=== PATIENT | female | born 1990 | race American Indian/Alaskan Native ===

== ENCOUNTER 2017-04-04 10:19 | Emergency (ER) | payer MEDICAID ==
[2017-04-04 11:08] LABS: Anion Gap 19 mmol/L; BUN/Creatinine Ratio 14; Blood Urea Nitrogen 7 mg/dL (7-17); Calcium 9.1 mg/dL (8.4-10.2); Carbon Dioxide 23 mmol/L (22-30); Glucose 415 mg/dL (65-100); Potassium 3.6 mmol/L (3.6-5.0); Sodium 133 mmol/L (137-145)
[2017-04-04] MEDS ORDERED: CLEOCIN 900 MG/50 mL 900 MG/50 ML BAG IV ONE (11:20)
[2017-04-04] MEDS ORDERED: NACL 0.9% 1000 ML 1,000 ML IV ONE (11:20)
[2017-04-04] MEDS ORDERED: XYLOCAINE 1% 20 mL INFILTRATI ONE (11:22)
[2017-04-04 11:24] LABS: Basophils % (Auto) 0.3 % (0.0-1.8); Eosinophils % (Auto) 1.4 % (0.0-4.3); Hematocrit 30.3 % (30.3-42.9); Hemoglobin 9.2 gm/dl (10.1-14.3); Mean Corpuscular HGB Conc 30 % (30-34); Mean Corpuscular Hemoglobin 21 pg (28-32); Mean Corpuscular Volume 70 fl (79-97); Platelet Count 527 K/mm3 (140-440); Red Blood Count 4.32 M/mm3 (3.65-5.03); Red Cell Distribution Width 17.9 % (13.2-15.2); White Blood Count 14.1 K/mm3 (4.5-11.0)
[2017-04-04] MEDS ORDERED: NACL 0.9% IR ONE (11:24)
--- NOTE | 2017-04-04 11:39 | Emergency Department Report ---
ED General Adult HPI - General Chief complaint: Skin/Abscess/Foreign Body Stated complaint: LEFT ARM HAS RASH SPREADING Time Seen by Provider: 04/04/17 11:15 Source: patient Mode of arrival: Ambulatory Limitations: No Limitations - History of Present Illness Initial comments: pt is a 26 y/om aaf with hx DM I insulin controlled who presents for left axillary abscess x 5 days symptoms include pain and swelling no drainage no fever no chills no /n/v no dizziness no lightheadedness pt endorses adherence with all home medications currently taking NPH 19 units qhs, and regular 10 units am, this is a recurrent problem for this patient, 3rd time year, last treated with keflex po, pt has primary care doctor at [facility]. Onset/Timin -: Gradual, days(s) Location: upper extremity (left axillary abscess ) Radiation: non-radiation Severity scale (0 -10): 5 Quality: sharp Improves with: none Worsens with: movement, other (palpation ) Associated Symptoms: denies: confusion, chest pain, cough, diaphoresis, fever/ chills, headaches, loss of appetite, malaise, nausea/vomiting, shortness of breath, syncope, weakness Treatments Prior to Arrival: none - Related Data Previous Rx's Medication Instructions Recorded Last Taken Type Insulin NPH/Regular [NovoLIN 70/30] 15 unit SUB-Q BIDDIAB units 01/10/15 Rx Amoxicillin/K Clav Tab [Augmentin 1 tab PO Q12HR #10 tab 05/30/16 Unknown Rx 875 mg] Ondansetron [Zofran TAB] 4 mg PO Q8HR PRN #30 tablet 05/30/16 Unknown Rx Clindamycin [Clindamycin CAP] 300 mg PO Q6H #40 capsule 04/04/17 Unknown Rx traMADol [Ultram] 50 mg PO Q8HR PRN #20 tablet 04/04/17 Unknown Rx Allergies Allergy/AdvReac Type Severity Reaction Status Date / Time No Known Allergies Allergy Verified 05/28/16 11:56 ED Review of Systems ROS: Stated complaint: LEFT ARM HAS RASH SPREADING Other details as noted in HPI Constitutional: denies: chills, fever Eyes: denies: eye pain, eye discharge, vision change ENT: denies: ear pain, throat pain Respiratory: denies: cough, shortness of breath, wheezing Cardiovascular: denies: chest pain, palpitations Endocrine: no symptoms reported Gastrointestinal: denies: abdominal pain, nausea, diarrhea Genitourinary: denies: urgency, dysuria, discharge Musculoskeletal: denies: back pain, joint swelling, arthralgia Skin: other (left axillary abscess ) Neurological: denies: headache, weakness, paresthesias Psychiatric: denies: anxiety, depression Hematological/Lymphatic: denies: easy bleeding, easy bruising ED Past Medical Hx - Past Medical History Previous Medical History?: Yes Hx Hypertension: Yes (during ) Hx Congestive Heart Failure: No Hx Diabetes: Yes Hx Deep Vein Thrombosis: No Hx Renal Disease: No Hx Sickle Cell Disease: No Hx Seizures: No Hx Psychiatric Treatment: No Hx Asthma: No Hx COPD: No Hx HIV: No - Surgical History Past Surgical History?: Yes Additional Surgical History: x 2 - Social History Smoking Status: Never Smoker Substance Use Type: Prescribed - Medications Home Medications: Home Medications Medication Instructions Recorded Confirmed Last Taken Type Insulin NPH/Regular [NovoLIN 70/30] 15 unit SUB-Q BIDDIAB units 01/10/1508/07/15 Rx Amoxicillin/K Clav Tab [Augmentin 1 tab PO Q12HR #10 tab 05/30/16 Unknown Rx 875 mg] Ondansetron [Zofran TAB] 4 mg PO Q8HR PRN #30 tablet 05/30/16 Unknown Rx Clindamycin [Clindamycin CAP] 300 mg PO Q6H #40 capsule 04/04/17 Unknown Rx traMADol [Ultram] 50 mg PO Q8HR PRN #20 tablet 04/04/17 Unknown Rx ED Physical Exam - General Limitations: No Limitations General appearance: alert, in no apparent distress - Head Head exam: Present: atraumatic, normocephalic - Eye Eye exam: Present: normal appearance - ENT ENT exam: Present: mucous membranes moist - Neck Neck exam: Present: normal inspection - Respiratory Respiratory exam: Present: normal lung sounds bilaterally. Absent: respiratory distress - Cardiovascular Cardiovascular Exam: Present: regular rate, normal rhythm. Absent: systolic murmur, diastolic murmur, rubs, gallop - GI/Abdominal GI/Abdominal exam: Present: soft, normal bowel sounds - Rectal Rectal exam: Present: deferred - Extremities Exam Extremities exam: Present: full ROM, tenderness (left axillary abscess ), normal capillary refill. Absent: pedal edema, joint swelling, calf tenderness - Expanded Upper Extremity Exam Left Upper Arm exam: Present: full ROM, tenderness (left axillary abscess ), erythema Neuro motor exam: Present: wrist extension intact, thumb opposition intact, thumb IP flexion intact, thumb adduction intact, fingers 2-5 abduction intact Neurosensory exam: Present: 2-point discrimination, radial nerve intact, ulnar nerve intact, median nerve intact Vascular: Present: normal capillary refill, radial pulse, brachial pulse, ulnar pulse. Absent: vascular compromise, Pallo, pulse deficit radial art, pulse deficit ulnar art, pulse deficit brachial art - Back Exam Back exam: Present: normal inspection - Neurological Exam Neurological exam: Present: alert, oriented X3 - Psychiatric Psychiatric exam: Present: normal affect, normal mood - Skin Skin exam: Present: warm, dry, other (left axillary abscess ) ED Course Vital Signs 04/04/17 10:24 Temperature 98.3 F Pulse Rate 112 H Blood Pressure 135/94 O2 Sat by Pulse 99 Oximetry - I & D Left Arm Type of Procedure: Simple Site: left axillary abcess 1x3 cm Blade Size: 11 I & D Procedure: betadine prep, sterile drapes applied, sterile dressing applied , gauze wick placed Progress: left axillary abscess, 1x3 cm erythema pain , no drainage fluctuant, abscess cleaned with betadine solution anesthesia with 1% lidocaine injection, incision with 11 blade scaple 1cm, purulent drainage moderate amount, wound irrigated with 30 cc sterile saline, packed with iodoform gaze, and sterile dressing applied all bleeding controled pt given wound care instructions pt verbalized understanding of same pt tolerated procedure with minimal distress. ED Medical Decision Making - Lab Data Result diagrams: 04/04/17 10:33 04/04/17 10:33 - Medical Decision Making pt is a 26 y/om aaf with hx DM I insulin controlled who presents for left axillary abscess x 5 days symptoms include pain and swelling no drainage no fever no chills no /n/v no dizziness no lightheadedness pt endorses adherence with all home medications currently taking NPH 19 units HS, and regular 10 units in am, this is a recurrent problem for this patient, 3rd time year, last treated with keflex po, exam today, pt is a/o x 3 does not appear toxic well hydrated well nourished, left axillary abscess 1x3 cm fluctuant pt for I&d of same, see procedure note, there is no red streaking no lymph , no fever, v/s hr : 115 there is no dizziness no lightheadedness no n/v , no generalized malaise noted, labs noted for gap: 19, na:133, glucose: 415, ketones: negative, wbc: 14.5, ua: no nitrates no leuk, Hcg: neg pt given NS 1 liter bolus, clindamycin 900 mg ivpb, and regular insulin 10 units iv, repeat accucheck is 225 mg/dl has primary care doctor at [facility], pt given strict instructions to return to emergency if symptoms worsen, take antibiotic and insulin as prescribed, pt verbalized agreement and understanding with discharge plan. pt will follow up with [facility] in 2 days for wound check and follow up evaluation. Critical care attestation.: If time is entered above; I have spent that time in minutes in the direct care of this critically ill patient, excluding procedure time. ED Disposition Clinical Impression: Abscess of axilla, left, Hyperglycemia Disposition: DC-01 TO HOME OR SELFCARE Is pt being admited?: No Does the pt Need Aspirin: No Condition: Good Instructions: Abscess (ED), Diabetic Hyperglycemia (ED) Prescriptions: Clindamycin [Clindamycin CAP] 300 mg PO Q6H #40 capsule traMADol [Ultram] 50 mg PO Q8HR PRN #20 tablet PRN Reason: Pain Referrals: PRIMARY CARE, [Primary Care Provider] - 3-5 Days Forms: Work/School Release Form(ED) Time of Disposition: 13:08
[2017-04-04] MEDS ORDERED: ULTRAM PO ONE (12:46)
[2017-04-04 13:03] LABS: Bilirubin,Urine NEG (Negative); Blood,Urine NEG (Negative); Ketones,Urine NEG (Negative); Leukocyte Esterase,Urine NEG (Negative); Nitrite,Urine NEG (Negative); Protein,Urine <15 mg/dL mg/dL (Negative); Urobilinogen,Urine < 2.0 mg/dL (<2.0)
[2017-04-04 13:49] VITALS: BP 155/106
== END 2017-04-04 14:01 | disposition home or self-care (01) ==
LOC: ED 10:19
DX: L02.412 Cutaneous abscess of left axilla (principal); I10 Essential (primary) hypertension; E10.65 Type 1 diabetes mellitus with hyperglycemia
CPT/HCPCS: 36415; 80048; 81001; 81025; 82010; 82962; 85025; 96365; 96375; J1815

== ENCOUNTER 2017-04-10 10:12 | Emergency (ER) | payer MEDICAID ==
[2017-04-10 10:24] VITALS: BP 136/93
== END 2017-04-10 23:46 | disposition left against medical advice (07) ==
LOC: ED 10:12
DX: Z53.21 Procedure and treatment not carried out due to patient leaving prior to being seen by health care provider (principal)

== ENCOUNTER 2017-08-11 13:56 | Emergency (ER) | payer MEDICAID ==
[2017-08-11 14:51] LABS: Basophils % (Auto) 0.6 % (0.0-1.8); Eosinophils # (Auto) 0.2 K/mm3 (0.0-0.4); Eosinophils % (Auto) 2.2 % (0.0-4.3); Hematocrit 36.5 % (30.3-42.9); Hemoglobin 11.2 gm/dl (10.1-14.3); Lymphocytes # (Auto) 1.9 K/mm3 (1.2-5.4); Lymphocytes % (Auto) 27.6 % (13.4-35.0); Mean Corpuscular HGB Conc 31 % (30-34); Mean Corpuscular Volume 78 fl (79-97); Monocytes # (Auto) 0.3 K/mm3 (0.0-0.8); Monocytes % (Auto) 4.4 % (0.0-7.3); Platelet Count 485 K/mm3 (140-440); Red Blood Count 4.68 M/mm3 (3.65-5.03); Red Cell Distribution Width 18.8 % (13.2-15.2)
[2017-08-11 14:52] LABS: Mean Corpuscular Hemoglobin 24 pg (28-32)
[2017-08-11 14:59] LABS: Alanine Aminotransferase 13 units/L (7-56); BUN/Creatinine Ratio 14; Blood Urea Nitrogen 7 mg/dL (7-17); Calcium 9.3 mg/dL (8.4-10.2); Hemolysis Index 0
[2017-08-11] MEDS ORDERED: NACL 0.9% 1000 ML 2,000 ML ONE (15:45)
[2017-08-11] MEDS ORDERED: NACL 0.9% 1000 ML 2,000 ML IV ONE (15:52)
[2017-08-11 15:57] LABS: Bilirubin,Urine NEG (Negative); Blood,Urine NEG (Negative); Color,Urine Straw (Yellow); Protein,Urine <15 mg/dL mg/dL (Negative); RBC,Urine < 1.0 /HPF (0.0-6.0); Urobilinogen,Urine < 2.0 mg/dL (<2.0); WBC,Urine < 1.0 /HPF (0.0-6.0)
[2017-08-11 16:13] LABS: HCG Qualitative,Urine Negative (Negative)
[2017-08-11] MEDS ORDERED: NACL 0.9% 1000 ML 1,000 ML IV ONE (16:33)
--- NOTE | 2017-08-11 16:37 | Emergency Department Report ---
ED General Adult HPI - General Chief complaint: Hyperglycemia Stated complaint: BLOOD SUGAR RUNNING HIGH Time Seen by Provider: 08/11/17 16:27 Source: patient Mode of arrival: Ambulatory Limitations: No Limitations - History of Present Illness Initial comments: Patient is 26 years old female history of type 2 diabetes she is on insulin, 15 units in the morning and 15 units in the evening. Patient presented to the ER was generalized weakness and high blood sugar more than 500. Patient denied any chest pain, shortness of breath, cough or fever. No nausea no vomiting. Patient stated that she is being compliant with her medication and diet. Patient followed at [facility] for her diabetes. -: Gradual Severity scale (0 -10): 10 - Related Data Previous Rx's Medication Instructions Recorded Last Taken Type Insulin NPH/Regular [NovoLIN 70/30] 15 unit SUB-Q BIDDIAB units 01/10/15 Rx Amoxicillin/K Clav Tab [Augmentin 1 tab PO Q12HR #10 tab 05/30/16 Unknown Rx 875 mg] Ondansetron [Zofran TAB] 4 mg PO Q8HR PRN #30 tablet 05/30/16 Unknown Rx Clindamycin [Clindamycin CAP] 300 mg PO Q6H #40 capsule 04/04/17 Unknown Rx traMADol [Ultram] 50 mg PO Q8HR PRN #20 tablet 04/04/17 Unknown Rx Allergies Allergy/AdvReac Type Severity Reaction Status Date / Time No Known Allergies Allergy Verified 05/28/16 11:56 ED Review of Systems ROS: Stated complaint: BLOOD SUGAR RUNNING HIGH Other details as noted in HPI Comment: All other systems reviewed and negative Constitutional: denies: chills, fever ENT: denies: ear pain, throat pain, dental pain Respiratory: denies: cough, shortness of breath, SOB with exertion Cardiovascular: denies: chest pain, palpitations, dyspnea on exertion Gastrointestinal: denies: abdominal pain, nausea, vomiting, diarrhea, constipation Musculoskeletal: denies: back pain, joint swelling Neurological: weakness (generalized weakness). denies: headache, numbness, paresthesias, confusion, abnormal gait Psychiatric: denies: depression ED Past Medical Hx - Past Medical History Hx Hypertension: Yes (during ) Hx Congestive Heart Failure: No Hx Diabetes: Yes Hx Deep Vein Thrombosis: No Hx Renal Disease: No Hx Sickle Cell Disease: No Hx Seizures: No Hx Psychiatric Treatment: No Hx Asthma: No Hx COPD: No Hx HIV: No Additional medical history: boil under left axilla with I&d - Surgical History Additional Surgical History: x 2 - Social History Smoking Status: Never Smoker Substance Use Type: None - Medications Home Medications: Home Medications Medication Instructions Recorded Confirmed Last Taken Type Insulin NPH/Regular [NovoLIN 70/30] 15 unit SUB-Q BIDDIAB units 01/10/1508/07/15 Rx Amoxicillin/K Clav Tab [Augmentin 1 tab PO Q12HR #10 tab 05/30/16 Unknown Rx 875 mg] Ondansetron [Zofran TAB] 4 mg PO Q8HR PRN #30 tablet 05/30/16 Unknown Rx Clindamycin [Clindamycin CAP] 300 mg PO Q6H #40 capsule 04/04/17 Unknown Rx traMADol [Ultram] 50 mg PO Q8HR PRN #20 tablet 04/04/17 Unknown Rx ED Physical Exam - General Limitations: No Limitations General appearance: alert, in no apparent distress - Head Head exam: Present: atraumatic, normocephalic - Eye Eye exam: Present: normal appearance, PERRL - ENT ENT exam: Present: normal exam, normal orophraynx, mucous membranes dry - Neck Neck exam: Present: normal inspection, full ROM. Absent: tenderness, meningismus, lymphadenopathy, thyromegaly - Respiratory Respiratory exam: Present: normal lung sounds bilaterally. Absent: respiratory distress, wheezes, rales, rhonchi, stridor, chest wall tenderness, accessory muscle use, decreased breath sounds, prolonged expiratory - Cardiovascular Cardiovascular Exam: Present: regular rate, normal rhythm, normal heart sounds - GI/Abdominal GI/Abdominal exam: Present: soft, normal bowel sounds. Absent: distended, tenderness, guarding, rebound, rigid, organomegaly, mass, bruit, pulsatile mass - Extremities Exam Extremities exam: Present: normal inspection, full ROM, normal capillary refill - Back Exam Back exam: Present: normal inspection, full ROM. Absent: tenderness, CVA tenderness (R), CVA tenderness (L) - Neurological Exam Neurological exam: Present: alert, oriented X3, CN II-XII intact, normal gait - Skin Skin exam: Present: warm, intact, normal color ED Course Vital Signs 08/11/17 08/11/17 08/11/17 13:58 15:49 16:00 Temperature 98 F Pulse Rate 96 H 87 90 Respiratory 16 14 Rate Blood Pressure 134/80 98/75 Blood Pressure 107/81 [Left] O2 Sat by Pulse 100 100 Oximetry 08/11/17 08/11/17 08/11/17 16:01 16:16 16:30 Temperature Pulse Rate 80 86 Respiratory 18 17 15 Rate Blood Pressure 98/75 112/81 Blood Pressure [Left] O2 Sat by Pulse 100 Oximetry 08/11/17 08/11/17 08/11/17 16:46 17:00 17:16 Temperature Pulse Rate 81 92 H 100 H Respiratory 17 23 16 Rate Blood Pressure 112/81 112/81 112/81 Blood Pressure [Left] O2 Sat by Pulse Oximetry - Reevaluation(s) Reevaluation #1: 08/11/17 17:43 Patient stated that she is feeling much better. Patient blood sugar now is down to 263. I will restart patient on metformin 500 mg 3 times a day and changed her insulin to 5 units before meals and I will start her on low dose of Lantus. Patient agreed as a plan and she stated that she'll follow up with that. 08/11/17 17:44 ED Medical Decision Making - Lab Data Result diagrams: 08/11/17 14:32 08/11/17 14:32 Critical care attestation.: If time is entered above; I have spent that time in minutes in the direct care of this critically ill patient, excluding procedure time. ED Disposition Clinical Impression: Hyperglycemia, Hypotension Disposition: DC-01 TO HOME OR SELFCARE Is pt being admited?: No Condition: Stable Instructions: Diabetic Hyperglycemia (ED)
[2017-08-11 17:23] VITALS: BP 112/81
[2017-08-11] MEDS ORDERED: TORADOL IV ONE (17:48)
== END 2017-08-11 18:03 | disposition home or self-care (01) ==
LOC: ED 13:56
DX: E11.65 Type 2 diabetes mellitus with hyperglycemia (principal); I95.9 Hypotension, unspecified; Z79.4 Long term (current) use of insulin
CPT/HCPCS: 36415; 80053; 81001; 81025; 82962; 85025; 96361; 96374; 96375; 99283; J1885; J7030; J1815

== ENCOUNTER 2017-12-14 19:56 | Emergency (ER) | payer MEDICAID ==
[2017-12-14 20:57] LABS: Basophils # (Auto) 0.1 K/mm3 (0.0-0.1); Basophils % (Auto) 0.6 % (0.0-1.8); Eosinophils % (Auto) 0.3 % (0.0-4.3); Hematocrit 42.9 % (30.3-42.9); Hemoglobin 13.4 gm/dl (10.1-14.3); Lymphocytes # (Auto) 2.3 K/mm3 (1.2-5.4); Lymphocytes % (Auto) 17.9 % (13.4-35.0); Mean Corpuscular HGB Conc 31 % (30-34); Mean Corpuscular Hemoglobin 27 pg (28-32); Mean Corpuscular Volume 86 fl (79-97); Monocytes # (Auto) 0.5 K/mm3 (0.0-0.8); Monocytes % (Auto) 3.7 % (0.0-7.3); Platelet Count 422 K/mm3 (140-440); Red Blood Count 4.98 M/mm3 (3.65-5.03)
[2017-12-14 21:29] LABS: Alanine Aminotransferase 9 units/L (7-56); Albumin 4.5 g/dL (3.9-5); BUN/Creatinine Ratio 20; Blood Urea Nitrogen 12 mg/dL (7-17); Calcium 9.4 mg/dL (8.4-10.2); Hemolysis Index 2
[2017-12-14 22:09] LABS: HCG Qualitative,Urine Negative (Negative)
[2017-12-14 22:15] LABS: Bacteria,Urine 1+ /HPF (Negative); Bilirubin,Urine NEG (Negative); Blood,Urine SM (Negative); Color,Urine Yellow (Yellow); Urobilinogen,Urine < 2.0 mg/dL (<2.0)
[2017-12-15] MEDS ORDERED: NACL 0.9% 1000 ML 1,000 ML IV ONE ×2 (00:17→02:12)
[2017-12-15] MEDS ORDERED: HumuLIN R SUB-Q ONE (00:51)
--- NOTE | 2017-12-15 01:37 | Emergency Department Report ---
ED Abdominal Pain HPI - General Chief Complaint: Abdominal Pain Stated Complaint: DIZZY,SOB,ABDOMINAL PAIN Time Seen by Provider: 12/15/17 00:50 Source: patient Mode of arrival: Ambulatory Limitations: No Limitations - History of Present Illness Initial Comments: Ms Lubin is a 27 year-old woman with hx of IDDM who presents with RLQ abdominal pain. Onset week ago. Has been seen by her PCP and is scheduled for plevic US on Saturday. Reports the pain is too bad and she cannot wait until then. No vomiting. Did not eat today so did not take her insulin. Did not check ehr sugar. No pain with urination. Normal BMs for her. No cough. NO chest pain. No fevers. No vaginal dc. has IUD. LMP 11/22. had mild shortness of breath when she arrived, has resolved. MD Complaint: abdominal pain, other (hyperglycemia) Severity scale (0 -10): 9 - Related Data Previous Rx's Medication Instructions Recorded Last Taken Type Insulin NPH/Regular [NovoLIN 70/30] 15 unit SUB-Q BIDDIAB units 01/10/15 Rx Amoxicillin/K Clav Tab [Augmentin 1 tab PO Q12HR #10 tab 05/30/16 Unknown Rx 875 mg] Ondansetron [Zofran TAB] 4 mg PO Q8HR PRN #30 tablet 05/30/16 Unknown Rx Clindamycin [Clindamycin CAP] 300 mg PO Q6H #40 capsule 04/04/17 Unknown Rx traMADol [Ultram] 50 mg PO Q8HR PRN #20 tablet 04/04/17 Unknown Rx Insulin Glargine,Hum.rec.anlog 25 units SQ QHS #5 vial 08/11/17 Unknown Rx [Lantus] metFORMIN [Glucophage] 500 mg PO BID #60 tablet 08/11/17 Unknown Rx Allergies Allergy/AdvReac Type Severity Reaction Status Date / Time No Known Allergies Allergy Verified 12/14/17 20:24 ED Review of Systems ROS: Stated complaint: DIZZY,SOB,ABDOMINAL PAIN Other details as noted in HPI Constitutional: denies: chills, fever Eyes: denies: vision change ENT: denies: throat pain Respiratory: shortness of breath. denies: cough, wheezing Cardiovascular: denies: chest pain, palpitations Endocrine: no symptoms reported Gastrointestinal: abdominal pain. denies: nausea, diarrhea Genitourinary: denies: urgency, dysuria, discharge Musculoskeletal: denies: back pain, joint swelling Skin: denies: rash, lesions Neurological: weakness. denies: headache, paresthesias Psychiatric: denies: anxiety, depression Hematological/Lymphatic: denies: easy bleeding, easy bruising ED Past Medical Hx - Past Medical History Hx Hypertension: Yes (during ) Hx Congestive Heart Failure: No Hx Diabetes: Yes Hx Deep Vein Thrombosis: No Hx Renal Disease: No Hx Sickle Cell Disease: No Hx Seizures: No Hx Psychiatric Treatment: No Hx Asthma: No Hx COPD: No Hx HIV: No Additional medical history: boil under left axilla with I&d - Surgical History Additional Surgical History: x 2 - Social History Smoking Status: Never Smoker Substance Use Type: Alcohol - Medications Home Medications: Home Medications Medication Instructions Recorded Confirmed Last Taken Type Insulin NPH/Regular [NovoLIN 70/30] 15 unit SUB-Q BIDDIAB units 01/10/1508/07/15 Rx Amoxicillin/K Clav Tab [Augmentin 1 tab PO Q12HR #10 tab 05/30/16 Unknown Rx 875 mg] Ondansetron [Zofran TAB] 4 mg PO Q8HR PRN #30 tablet 05/30/16 Unknown Rx Clindamycin [Clindamycin CAP] 300 mg PO Q6H #40 capsule 04/04/17 Unknown Rx traMADol [Ultram] 50 mg PO Q8HR PRN #20 tablet 04/04/17 Unknown Rx Insulin Glargine,Hum.rec.anlog 25 units SQ QHS #5 vial 08/11/17 Unknown Rx [Lantus] metFORMIN [Glucophage] 500 mg PO BID #60 tablet 08/11/17 Unknown Rx ED Physical Exam - General Limitations: No Limitations General appearance: alert, in no apparent distress - Head Head exam: Present: atraumatic, normocephalic - Eye Eye exam: Present: normal appearance, PERRL, EOMI - ENT ENT exam: Present: normal exam, mucous membranes dry - Neck Neck exam: Present: normal inspection. Absent: tenderness, meningismus - Respiratory Respiratory exam: Present: normal lung sounds bilaterally. Absent: respiratory distress, wheezes, rales - Cardiovascular Cardiovascular Exam: Present: normal rhythm, tachycardia. Absent: systolic murmur, diastolic murmur, rubs, gallop - GI/Abdominal GI/Abdominal exam: Present: soft, other (mild RLQ ttp,no rebound, no guarding). Absent: distended, guarding, rebound - Extremities Exam Extremities exam: Present: normal inspection - Back Exam Back exam: Present: normal inspection. Absent: tenderness - Neurological Exam Neurological exam: Present: alert, oriented X3 - Psychiatric Psychiatric exam: Present: normal affect, normal mood - Skin Skin exam: Present: warm, dry, intact, normal color. Absent: rash ED Course Vital Signs 12/14/17 12/14/17 12/15/17 20:24 23:54 00:00 Temperature 98.7 F Pulse Rate 129 H 111 H Respiratory 18 18 Rate Blood Pressure 134/91 Blood Pressure [Right] O2 Sat by Pulse 99 100 Oximetry 12/15/17 12/15/17 12/15/17 00:10 00:30 01:00 Temperature 98.8 F Pulse Rate 100 H 104 H 107 H Respiratory 22 21 12 Rate Blood Pressure 126/85 132/86 Blood Pressure 138/92 [Right] O2 Sat by Pulse 100 99 100 Oximetry 12/15/17 12/15/17 12/15/17 01:32 02:00 02:30 Temperature Pulse Rate 111 H 103 H 102 H Respiratory 17 16 14 Rate Blood Pressure 132/86 107/66 106/57 Blood Pressure [Right] O2 Sat by Pulse 100 99 99 Oximetry 12/15/17 12/15/17 12/15/17 03:00 03:30 04:00 Temperature Pulse Rate 95 H 95 H 92 H Respiratory 22 18 14 Rate Blood Pressure 110/65 98/59 103/64 Blood Pressure [Right] O2 Sat by Pulse 99 100 99 Oximetry 12/15/17 12/15/17 04:30 05:00 Temperature Pulse Rate 90 99 H Respiratory 20 19 Rate Blood Pressure 106/64 121/76 Blood Pressure [Right] O2 Sat by Pulse 99 99 Oximetry ED Medical Decision Making - Lab Data Result diagrams: 12/14/17 20:43 12/15/17 00:31 Lab Results 12/14/17 12/14/17 12/14/17 Range/Units 20:43 20:43 21:57 WBC 12.8 H (4.5-11.0) K/mm3 RBC 4.98 (3.65-5.03) M/mm3 Hgb 13.4 (10.1-14.3) gm/dl Hct 42.9 (30.3-42.9) % MCV 86 (79-97) fl MCH 27 L (28-32) pg MCHC 31 (30-34) % RDW 16.0 H (13.2-15.2) % Plt Count 422 (140-440) K/mm3 Lymph % (Auto) 17.9 (13.4-35.0) % [place] % (Auto) 3.7 (0.0-7.3) % Eos % (Auto) 0.3 (0.0-4.3) % Baso % (Auto) 0.6 (0.0-1.8) % Lymph # 2.3 (1.2-5.4) K/mm3 [place] # 0.5 (0.0-0.8) K/mm3 Eos # 0.0 (0.0-0.4) K/mm3 Baso # 0.1 (0.0-0.1) K/mm3 Seg Neutrophils % 77.5 H (40.0-70.0) % Seg Neutrophils # 9.9 H (1.8-7.7) K/mm3 VBG pH (7.320-7.420) Sodium 131 L (137-145) mmol/L Potassium 4.1 (3.6-5.0) mmol/L Chloride 92.6 L (98-107) mmol/L Carbon Dioxide 18 L (22-30) mmol/L Anion Gap 25 mmol/L BUN 12 (7-17) mg/dL Creatinine 0.6 L (0.7-1.2) mg/dL Estimated GFR > 60 ml/min BUN/Creatinine Ratio 20 % Glucose 481 H (65-100) mg/dL POC Glucose (70-105) Calcium 9.4 (8.4-10.2) mg/dL Total Bilirubin 0.80 (0.1-1.2) mg/dL AST 14 (5-40) units/L ALT 9 (7-56) units/L Alkaline Phosphatase 112 (35-129) units/L Total Protein 7.8 (6.3-8.2) g/dL Albumin 4.5 (3.9-5) g/dL Albumin/Globulin Ratio 1.4 % Urine Color Yellow (Yellow) Urine Turbidity Clear (Clear) Urine pH 6.0 (5.0-7.0) Ur Specific [place] 1.032 H (1.003-1.030) Urine Protein 30 mg/dl (Negative) mg/dL Urine Glucose (UA) >=500 (Negative) mg/dL Urine Ketones 80 (Negative) mg/dL Urine Blood Sm (Negative) Urine Nitrite Neg (Negative) Ur Reducing Substances Not Reportable Urine Bilirubin Neg (Negative) Urine Ictotest Not Reportable Urine Urobilinogen < 2.0 (<2.0) mg/dL Ur Leukocyte Esterase Lg (Negative) Urine WBC (Auto) 17.0 H (0.0-6.0) /HPF Urine RBC (Auto) 15.0 (0.0-6.0) /HPF U Epithel Cells (Auto) 7.0 (0-13.0) /HPF Urine Bacteria (Auto) 1+ (Negative) /HPF Urine HCG, Qual Negative (Negative) 12/15/17 12/15/17 12/15/17 Range/Units 00:11 00:25 00:31 WBC (4.5-11.0) K/mm3 RBC (3.65-5.03) M/mm3 Hgb (10.1-14.3) gm/dl Hct (30.3-42.9) % MCV (79-97) fl MCH (28-32) pg MCHC (30-34) % RDW (13.2-15.2) % Plt Count (140-440) K/mm3 Lymph % (Auto) (13.4-35.0) % [place] % (Auto) (0.0-7.3) % Eos % (Auto) (0.0-4.3) % Baso % (Auto) (0.0-1.8) % Lymph # (1.2-5.4) K/mm3 [place] # (0.0-0.8) K/mm3 Eos # (0.0-0.4) K/mm3 Baso # (0.0-0.1) K/mm3 Seg Neutrophils % (40.0-70.0) % Seg Neutrophils # (1.8-7.7) K/mm3 VBG pH 7.266 L (7.320-7.420) Sodium (137-145) mmol/L Potassium (3.6-5.0) mmol/L Chloride (98-107) mmol/L Carbon Dioxide (22-30) mmol/L Anion Gap mmol/L BUN (7-17) mg/dL Creatinine (0.7-1.2) mg/dL Estimated GFR ml/min BUN/Creatinine Ratio % Glucose 598 H* (65-100) mg/dL POC Glucose > 500 H (70-105) Calcium (8.4-10.2) mg/dL Total Bilirubin (0.1-1.2) mg/dL AST (5-40) units/L ALT (7-56) units/L Alkaline Phosphatase (35-129) units/L Total Protein (6.3-8.2) g/dL Albumin (3.9-5) g/dL Albumin/Globulin Ratio % Urine Color (Yellow) Urine Turbidity (Clear) Urine pH (5.0-7.0) Ur Specific [place] (1.003-1.030) Urine Protein (Negative) mg/dL Urine Glucose (UA) (Negative) mg/dL Urine Ketones (Negative) mg/dL Urine Blood (Negative) Urine Nitrite (Negative) Ur Reducing Substances Urine Bilirubin (Negative) Urine Ictotest Urine Urobilinogen (<2.0) mg/dL Ur Leukocyte Esterase (Negative) Urine WBC (Auto) (0.0-6.0) /HPF Urine RBC (Auto) (0.0-6.0) /HPF U Epithel Cells (Auto) (0-13.0) /HPF Urine Bacteria (Auto) (Negative) /HPF Urine HCG, Qual (Negative) - Medical Decision Making ms lubin is a 27 year-old woman with hx of IDDM who presents with RLQ abdominal pain. has been seen by PCP and has planned OP US scheduled for saturday. Did not eat or take insulin yesterday. Elevated blood sugar. Exam revela mild RLQ tto. no rebound, no guarding. Dry oral mucosa. Tachcyardic. suspect DKA vs hyperglycemia vs dehydration. RLQ ttp not episodic, does not sound like torsion. Has been going on for days. Suspect cyst. normal bowel and bladder function. UA clean, no evidence of UTI/pyelo. Normal WBC. HCG negative. Pain largely relieved with NSAIDs. Given 10u subq insulin and 2L NS. BS now down in 200s. No evidence of acidosis, ketosis or anion gap. Not DKA. Will recommend continued NSAIDs and f/u for ultrasound as planned. given care instructions and return precautions. HR now less than 100. Critical care attestation.: If time is entered above; I have spent that time in minutes in the direct care of this critically ill patient, excluding procedure time. ED Disposition Clinical Impression: Hyperglycemia Abdominal pain Qualifiers: Abdominal location: right lower quadrant Qualified Code(s): R10.31 - Right lower quadrant pain Disposition: - TO HOME OR SELFCARE Is pt being admited?: No Condition: Stable Instructions: Abdominal Pain (ED) Additional Instructions: Go to your ultrasound as scheduled on Saturday. Return for worsening pain, fever. Referrals: PRIMARY CARE, [Primary Care Provider] - 3-5 Days
[2017-12-15] MEDS ORDERED: TORADOL IV ONE (02:58)
[2017-12-15 05:43] VITALS: BP 98/56
== END 2017-12-15 05:45 | disposition home or self-care (01) ==
LOC: ED 19:56
DX: E11.65 Type 2 diabetes mellitus with hyperglycemia (principal); I10 Essential (primary) hypertension; Z79.4 Long term (current) use of insulin
CPT/HCPCS: 36415; 80053; 81001; 81025; 82805; 82947; 82962; 85025; 93005; 93010; 96361; 96372; 96374; 99283; J1885; J7030; J1815

== ENCOUNTER 2017-12-16 10:58 | Emergency (ER) | payer MEDICAID ==
[2017-12-16 11:41] VITALS: BP 143/99
== END 2017-12-16 12:15 | disposition left against medical advice (07) ==
LOC: ED 10:58
DX: R10.32 Left lower quadrant pain (principal); E11.9 Type 2 diabetes mellitus without complications; Z53.21 Procedure and treatment not carried out due to patient leaving prior to being seen by health care provider
CPT/HCPCS: 82962

== ENCOUNTER 2018-08-25 08:59 | Inpatient (IN) | payer MEDICAID ==
[2018-08-25 09:46] LABS: Basophils # (Auto) 0.1 K/mm3 (0.0-0.1); Basophils % (Auto) 0.4 % (0.0-1.8); Eosinophils % (Auto) 0.4 % (0.0-4.3); Hematocrit 42.3 % (30.3-42.9); Hemoglobin 14.3 gm/dl (10.1-14.3); Lymphocytes # (Auto) 2.4 K/mm3 (1.2-5.4); Lymphocytes % (Auto) 20.9 % (13.4-35.0); Mean Corpuscular HGB Conc 34 % (30-34); Mean Corpuscular Volume 93 fl (79-97); Monocytes # (Auto) 0.4 K/mm3 (0.0-0.8); Monocytes % (Auto) 3.2 % (0.0-7.3); Platelet Count 345 K/mm3 (140-440); Red Blood Count 4.56 M/mm3 (3.65-5.03); Red Cell Distribution Width 12.8 % (13.2-15.2)
[2018-08-25 10:00] LABS: BUN/Creatinine Ratio 20; Blood Urea Nitrogen 10 mg/dL (7-17); Calcium 9.3 mg/dL (8.4-10.2); Hemolysis Index 11
[2018-08-25] MEDS ORDERED: NACL 0.9% 1000 ML 1,000 ML IV ONE ×3 (10:26→10:46)
--- NOTE | 2018-08-25 10:26 | Emergency Department Report ---
ED General Adult HPI - General Chief complaint: Hyperglycemia Stated complaint: BODY PAIN,WEAKNESS,DIZZY Time Seen by Provider: 08/25/18 10:22 Source: patient Mode of arrival: Ambulatory Limitations: No Limitations - History of Present Illness Initial comments: 7-year-old female states over the last few days that she has had an elevated blood sugar with polyuria and polydipsia. She denies dysuria, fever or chills. She is not complaining of back pain but complains of diffuse myalgias. She did describe generalized weakness. This is a type 1 insulin-dependent diabetic. She did not take her insulin today. She states she goes to the [facility]. However, she does not know what a sliding scale is for insulin coverage. -: days(s) Location: upper extremity, lower extremity Radiation: non-radiation Severity scale (0 -10): 7 Quality: aching Consistency: intermittent Improves with: none Worsens with: none Associated Symptoms: denies other symptoms (except as above) Treatments Prior to Arrival: none - Related Data Home Medications Medication Instructions Recorded Confirmed Last Taken Insulin NPH/Regular [NovoLIN 70/30] 5 unit SUB-Q BIDDIAB 08/25/18 08/25/18 08/24/18 Allergies Allergy/AdvReac Type Severity Reaction Status Date / Time No Known Allergies Allergy Verified 12/14/17 20:24 ED Review of Systems ROS: Stated complaint: BODY PAIN,WEAKNESS,DIZZY Other details as noted in HPI Constitutional: weakness. denies: chills, fever Eyes: denies: eye pain, eye discharge, vision change ENT: denies: ear pain, throat pain Respiratory: denies: cough, shortness of breath, wheezing Cardiovascular: denies: chest pain, palpitations Endocrine: see HPI Gastrointestinal: denies: abdominal pain, nausea, diarrhea Genitourinary: denies: urgency, dysuria, discharge Musculoskeletal: denies: back pain, joint swelling, arthralgia Skin: denies: rash, lesions Neurological: denies: headache, weakness, paresthesias Psychiatric: denies: anxiety, depression Hematological/Lymphatic: denies: easy bleeding, easy bruising ED Past Medical Hx - Past Medical History Previous Medical History?: Yes Hx Hypertension: Yes (during ) Hx Congestive Heart Failure: No Hx Diabetes: Yes Hx Deep Vein Thrombosis: No Hx Renal Disease: No Hx Sickle Cell Disease: No Hx Seizures: No Hx Psychiatric Treatment: No Hx Asthma: No Hx COPD: No Hx HIV: No Additional medical history: boil under left axilla with I&d - Surgical History Past Surgical History?: Yes Additional Surgical History: x 2 - Social History Smoking Status: Never Smoker Substance Use Type: None - Medications Home Medications: Home Medications Medication Instructions Recorded Confirmed Last Taken Type Insulin NPH/Regular [NovoLIN 70/30] 5 unit SUB-Q BIDDIAB 08/25/18 08/25/18 08/24/18 History ED Physical Exam - General Limitations: No Limitations General appearance: alert, in no apparent distress, other (appears somewhat dehydrated) - Head Head exam: Present: atraumatic, normocephalic - Eye Eye exam: Present: normal appearance - ENT ENT exam: Present: mucous membranes moist - Neck Neck exam: Present: normal inspection. Absent: tenderness, meningismus - Respiratory Respiratory exam: Present: normal lung sounds bilaterally. Absent: respiratory distress - Cardiovascular Cardiovascular Exam: Present: normal rhythm, tachycardia. Absent: systolic murmur, diastolic murmur, rubs, gallop - GI/Abdominal GI/Abdominal exam: Present: soft, normal bowel sounds. Absent: distended, tenderness, guarding, rebound, rigid - Extremities Exam Extremities exam: Present: normal inspection - Back Exam Back exam: Present: normal inspection. Absent: CVA tenderness (R), CVA tenderness (L) - Neurological Exam Neurological exam: Present: alert, oriented X3, CN II-XII intact. Absent: motor sensory deficit - Psychiatric Psychiatric exam: Present: normal mood, flat affect - Skin Skin exam: Present: warm, dry, intact, normal color. Absent: rash ED Course Vital Signs 08/25/18 08/25/18 08/25/18 09:03 09:57 11:00 Temperature 98.6 F 98.6 F Pulse Rate 120 H 114 H 106 H Respiratory 16 16 14 Rate Blood Pressure 127/85 Blood Pressure 126/87 130/89 [Left] O2 Sat by Pulse 100 98 100 Oximetry 08/25/18 13:53 Temperature 99 F Pulse Rate 84 Respiratory 19 Rate Blood Pressure Blood Pressure 135/90 [Left] O2 Sat by Pulse 100 Oximetry - Reevaluation(s) Reevaluation #1: Given IV fluid and insulin. Patient found to have evidence of urinary tract infection. A renal ultrasound will be obtained. She will be reassessed. She is not in DKA. Urine culture is pending. 08/25/18 12:04 Reevaluation #2: Discussed case with Dr. Villafana. Patient admitted to the hospital service. She was given fluids and insulin and ceftriaxone. Blood cultures and urine culture was sent. 08/25/18 13:46 08/25/18 13:51 08/25/18 13:55 Ultrasound showed renal parenchymal disease but no evidence of obstruction or kidney stone. 08/25/18 13:55 In addition, apparently this patient has a history of sepsis. It is noted that she has persistent tachycardia although her blood pressure is fine. It is probably safer to admit her to the hospital. ED Medical Decision Making - Lab Data Result diagrams: 08/25/18 09:35 08/25/18 09:35 Laboratory Results - last 24 hr 08/25/18 08/25/18 08/25/18 09:35 09:35 09:35 WBC 11.5 H RBC 4.56 Hgb 14.3 Hct 42.3 MCV 93 MCH 31 MCHC 34 RDW 12.8 L Plt Count 345 Lymph % (Auto) 20.9 [place] % (Auto) 3.2 Eos % (Auto) 0.4 Baso % (Auto) 0.4 Lymph # 2.4 [place] # 0.4 Eos # 0.0 Baso # 0.1 Seg Neutrophils % 75.1 H Seg Neutrophils # 8.6 H VBG pH Sodium 131 L Potassium 4.8 Chloride 99.2 Carbon Dioxide 22 Anion Gap 15 BUN 10 Creatinine 0.5 L Estimated GFR > 60 BUN/Creatinine Ratio 20 Glucose 403 H Calcium 9.3 HCG, Qual Negative 08/25/18 09:35 WBC RBC Hgb Hct MCV MCH MCHC RDW Plt Count Lymph % (Auto) [place] % (Auto) Eos % (Auto) Baso % (Auto) Lymph # [place] # Eos # Baso # Seg Neutrophils % Seg Neutrophils # VBG pH 7.315 L Sodium Potassium Chloride Carbon Dioxide Anion Gap BUN Creatinine Estimated GFR BUN/Creatinine Ratio Glucose Calcium HCG, Qual Laboratory Results - last 24 hr 08/25/18 08/25/18 08/25/18 09:35 09:35 09:35 WBC 11.5 H RBC 4.56 Hgb 14.3 Hct 42.3 MCV 93 MCH 31 MCHC 34 RDW 12.8 L Plt Count 345 Lymph % (Auto) 20.9 [place] % (Auto) 3.2 Eos % (Auto) 0.4 Baso % (Auto) 0.4 Lymph # 2.4 [place] # 0.4 Eos # 0.0 Baso # 0.1 Seg Neutrophils % 75.1 H Seg Neutrophils # 8.6 H VBG pH Sodium 131 L Potassium 4.8 Chloride 99.2 Carbon Dioxide 22 Anion Gap 15 BUN 10 Creatinine 0.5 L Estimated GFR > 60 BUN/Creatinine Ratio 20 Glucose 403 H Calcium 9.3 HCG, Qual Negative Urine Color Urine Turbidity Urine pH Ur Specific [place] Urine Protein Urine Glucose (UA) Urine Ketones Urine Blood Urine Nitrite Urine Bilirubin Urine Urobilinogen Ur Leukocyte Esterase Urine WBC (Auto) Urine RBC (Auto) U Epithel Cells (Auto) Urine Bacteria (Auto) 08/25/18 08/25/18 09:35 09:56 WBC RBC Hgb Hct MCV MCH MCHC RDW Plt Count Lymph % (Auto) [place] % (Auto) Eos % (Auto) Baso % (Auto) Lymph # [place] # Eos # Baso # Seg Neutrophils % Seg Neutrophils # VBG pH 7.315 L Sodium Potassium Chloride Carbon Dioxide Anion Gap BUN Creatinine Estimated GFR BUN/Creatinine Ratio Glucose Calcium HCG, Qual Urine Color Yellow Urine Turbidity Slightly-cloudy Urine pH 6.0 Ur Specific [place] 1.039 H Urine Protein <15 mg/dl Urine Glucose (UA) 150 Urine Ketones 80 Urine Blood Neg Urine Nitrite Neg Urine Bilirubin Neg Urine Urobilinogen < 2.0 Ur Leukocyte Esterase Lg Urine WBC (Auto) 45.0 H Urine RBC (Auto) 11.0 U Epithel Cells (Auto) 3.0 Urine Bacteria (Auto) 1+ Laboratory Results - last 24 hr 08/25/18 08/25/18 08/25/18 09:35 09:35 09:35 WBC 11.5 H RBC 4.56 Hgb 14.3 Hct 42.3 MCV 93 MCH 31 MCHC 34 RDW 12.8 L Plt Count 345 Lymph % (Auto) 20.9 [place] % (Auto) 3.2 Eos % (Auto) 0.4 Baso % (Auto) 0.4 Lymph # 2.4 [place] # 0.4 Eos # 0.0 Baso # 0.1 Seg Neutrophils % 75.1 H Seg Neutrophils # 8.6 H VBG pH Sodium 131 L Potassium 4.8 Chloride 99.2 Carbon Dioxide 22 Anion Gap 15 BUN 10 Creatinine 0.5 L Estimated GFR > 60 BUN/Creatinine Ratio 20 Glucose 403 H Lactic Acid Calcium 9.3 Total Bilirubin Direct Bilirubin Indirect Bilirubin AST ALT Alkaline Phosphatase Total Protein Albumin Albumin/Globulin Ratio HCG, Qual Negative Urine Color Urine Turbidity Urine pH Ur Specific [place] Urine Protein Urine Glucose (UA) Urine Ketones Urine Blood Urine Nitrite Urine Bilirubin Urine Urobilinogen Ur Leukocyte Esterase Urine WBC (Auto) Urine RBC (Auto) U Epithel Cells (Auto) Urine Bacteria (Auto) 08/25/18 08/25/18 08/25/18 09:35 09:56 12:45 WBC RBC Hgb Hct MCV MCH MCHC RDW Plt Count Lymph % (Auto) [place] % (Auto) Eos % (Auto) Baso % (Auto) Lymph # [place] # Eos # Baso # Seg Neutrophils % Seg Neutrophils # VBG pH 7.315 L Sodium Potassium Chloride Carbon Dioxide Anion Gap BUN Creatinine Estimated GFR BUN/Creatinine Ratio Glucose Lactic Acid 1.20 Calcium Total Bilirubin Direct Bilirubin Indirect Bilirubin AST ALT Alkaline Phosphatase Total Protein Albumin Albumin/Globulin Ratio HCG, Qual Urine Color Yellow Urine Turbidity Slightly-cloudy Urine pH 6.0 Ur Specific [place] 1.039 H Urine Protein <15 mg/dl Urine Glucose (UA) 150 Urine Ketones 80 Urine Blood Neg Urine Nitrite Neg Urine Bilirubin Neg Urine Urobilinogen < 2.0 Ur Leukocyte Esterase Lg Urine WBC (Auto) 45.0 H Urine RBC (Auto) 11.0 U Epithel Cells (Auto) 3.0 Urine Bacteria (Auto) 1+ 08/25/18 12:45 WBC RBC Hgb Hct MCV MCH MCHC RDW Plt Count Lymph % (Auto) [place] % (Auto) Eos % (Auto) Baso % (Auto) Lymph # [place] # Eos # Baso # Seg Neutrophils % Seg Neutrophils # VBG pH Sodium Potassium Chloride Carbon Dioxide Anion Gap BUN Creatinine Estimated GFR BUN/Creatinine Ratio Glucose Lactic Acid Calcium Total Bilirubin 0.70 Direct Bilirubin < 0.2 Indirect Bilirubin 0.5 AST 10 ALT 6 L Alkaline Phosphatase 80 Total Protein 6.1 L Albumin 3.5 L Albumin/Globulin Ratio 1.3 HCG, Qual Urine Color Urine Turbidity Urine pH Ur Specific [place] Urine Protein Urine Glucose (UA) Urine Ketones Urine Blood Urine Nitrite Urine Bilirubin Urine Urobilinogen Ur Leukocyte Esterase Urine WBC (Auto) Urine RBC (Auto) U Epithel Cells (Auto) Urine Bacteria (Auto) Critical care attestation.: If time is entered above; I have spent that time in minutes in the direct care of this critically ill patient, excluding procedure time. ED Disposition Clinical Impression: Acute pyelonephritis, Hyperglycemia due to type 1 diabetes mellitus Disposition: OP ADMIT IP TO THIS HOSP Is pt being admited?: Yes Does the pt Need Aspirin: Yes Condition: Stable Instructions: Diabetes Mellitus Type 2 in Adults (ED) Referrals: YASMANY PINZON MD [Primary Care Provider] - 3-5 Days Time of Disposition: 13:56
[2018-08-25] MEDS ORDERED: HumuLIN R IV ONE (10:27)
[2018-08-25 10:30] LABS: Bacteria,Urine 1+ /HPF (Negative); Bilirubin,Urine NEG (Negative); Blood,Urine NEG (Negative); Color,Urine Yellow (Yellow); Protein,Urine <15 mg/dL mg/dL (Negative); Urobilinogen,Urine < 2.0 mg/dL (<2.0)
[2018-08-25] MEDS ORDERED: NACL 0.9% 1000 ML 2,000 ML ONE (10:35)
[2018-08-25] MEDS ORDERED: ROCEPHIN/NS 1 GM/50 ML 1 GM/50 ML BAG IV ONE (11:10)
[2018-08-25] MEDS ORDERED: TORADOL IV ONE (11:23)
--- NOTE | 2018-08-25 11:52 | Ultrasound Report ---
ULTRASOUND RENAL BILATERAL HISTORY: Pyelonephritis. TECHNIQUE: transabdominal ultrasound with color Doppler interrogation. COMPARISON: none. FINDINGS: The kidneys are normal size, contour and position. There is increased renal cortical echotexture bilaterally consistent with nonspecific renal parenchymal disease. Corticomedullary differentiation is preserved. No evidence for cystic disease, mass, nephrolithiasis, hydronephrosis or perinephric fluid. The views of the bladder and the region of the ureters appear normal. IMPRESSION: Renal parenchymal disease.
[2018-08-25] MEDS ORDERED: SODIUM CHLORIDE FLUSH SYRINGE 10 ML IV PRN (12:36)
[2018-08-25] MEDS ORDERED: TYLENOL PO PRN (12:36)
[2018-08-25] MEDS ORDERED: ZOFRAN IV PRN (12:36)
[2018-08-25] MEDS ORDERED: PROVENTIL IH PRN (12:36)
[2018-08-25 13:28] LABS: Alanine Aminotransferase 6 units/L (7-56); Albumin 3.5 g/dL (3.9-5)
[2018-08-25 13:44] LABS: Bilirubin,Direct < 0.2 mg/dL (0-0.2)
[2018-08-25] MEDS ORDERED: ASPIRIN PO ONE (13:57)
[2018-08-25] MEDS ORDERED: D50W (25GM) Syringe IV PRN (14:05)
--- NOTE | 2018-08-25 14:13 | History and Physical Report ---
History of Present Illness Date of admission: 08/25/18 12:36 Chief complaint: I feel sick, and my blood sugar is up History of present illness: 27 YO Female with DM, Gestational HTN presents to ED for evaluation. Pt states that she has experienced elevated glucose levels over the past 2 days. Pt acknowledges generalized weakness, mild discomfort with urination, polyuria, and polydipsia. Pt denies fever,chills, CP, Palpitations, Traums, NVD, productive cough, skin rash, or recent ill contacts. Pt transported to [facility] by private vehicle. Pt seen and evaluated in ED and found to have SIRS, UTI, and Uncontrolled DM. Pt admitted to medical floor. Past History Past Medical History: diabetes, hypertension Past Surgical History: Social history: single. denies: smoking, alcohol abuse, prescription drug abuse Family history: diabetes, hypertension Medications and Allergies Allergies Allergy/AdvReac Type Severity Reaction Status Date / Time No Known Allergies Allergy Verified 12/14/17 20:24 Home Medications Medication Instructions Recorded Confirmed Last Taken Type Insulin NPH/Regular [NovoLIN 70/30] 5 unit SUB-Q BIDDIAB 08/25/18 08/25/18 08/24/18 History Active Meds: Active Medications Acetaminophen (Tylenol) 650 mg PO Q4H PRN PRN Reason: Pain MILD(1-3)/Fever >100.5/WANG Albuterol (Proventil) 2.5 mg IH Q4HRT PRN PRN Reason: Shortness Of Breath Dextrose (D50w (25gm) Syringe) 50 ml IV PRN PRN PRN Reason: Hypoglycemia Sodium Chloride (Nacl 0.45% 1000 Ml) 1,000 mls @ 100 mls/hr IV DIRECT RUDI Insulin Human Lispro (Humalog) 0 unit SUB-Q Q6HR RUDI; Protocol Ondansetron HCl (Zofran) 4 mg IV Q8H PRN PRN Reason: Nausea And Vomiting Sodium Chloride (Sodium Chloride Flush Syringe 10 Ml) 10 ml IV BID RUDI Sodium Chloride (Sodium Chloride Flush Syringe 10 Ml) 10 ml IV PRN PRN PRN Reason: LINE FLUSH Review of Systems Constitutional: no weight loss, no weight gain, no fever, no chills Ears, nose, mouth and throat: no ear pain, no ear discharge, no tinnitis, no decreased hearing, no nose pain Breasts: no change in shape, no swelling, no mass Cardiovascular: no chest pain, no orthopnea, no palpitations, no rapid/irregular heart beat, no edema Respiratory: no cough, no cough with sputum, no excessive sputum, no hemoptysis Gastrointestinal: no nausea, no vomiting, no diarrhea Genitourinary Female: difficulty voiding, no pelvic pain, no flank pain, no menorrhagia Rectal: no pain, no incontinence, no bleeding Musculoskeletal: no neck stiffness, no neck pain, no shooting arm pain, no arm numbness/tingling Integumentary: no rash, no pruritis, no redness, no sores, no wounds Neurological: no transient paralysis, no paralysis, no weakness, no parathesias, no numbness, no tingling Psychiatric: no anxiety, no memory loss, no change in sleep habits, no sleep disturbances, no insomnia, no hypersomnia Endocrine: no cold intolerance, no heat intolerance, no polyphagia, no excessive thirst, no polydipsia Hematologic/Lymphatic: no easy bruising, no lymphadenopathy, no lymphedema Allergic/Immunologic: no urticaria, no persistent infections Exam - Constitutional Vitals: Temp Pulse Resp BP Pulse Ox 99 F 84 19 135/90 100 08/25/18 13:53 08/25/18 13:53 08/25/18 13:53 08/25/18 13:53 08/25/18 13:53 General appearance: Present: mild distress - EENT Eyes: Present: PERRL ENT: hearing intact, clear oral mucosa - Neck Neck: Present: supple, normal ROM - Respiratory Respiratory effort: normal Respiratory: bilateral: CTA - Cardiovascular Heart Sounds: Present: S1 & S2. Absent: rub, click - Extremities Extremities: pulses symmetrical, No edema Peripheral Pulses: within normal limits - Abdominal General gastrointestinal: Present: soft, non-tender, non-distended, normal bowel sounds Female genitourinary: Present: normal - Integumentary Integumentary: Present: clear, warm, dry - Musculoskeletal Musculoskeletal: gait normal, strength equal bilaterally - Psychiatric Psychiatric: appropriate mood/affect, intact judgment & insight - Neurologic Neurologic: CNII-XII intact, moves all extremities Results - Labs CBC & Chem 7: 08/25/18 09:35 08/25/18 09:35 Labs: Abnormal lab results 08/25/18 08/25/18 08/25/18 Range/Units 09:35 09:35 09:35 WBC 11.5 H (4.5-11.0) K/mm3 RDW 12.8 L (13.2-15.2) % Seg Neutrophils % 75.1 H (40.0-70.0) % Seg Neutrophils # 8.6 H (1.8-7.7) K/mm3 VBG pH 7.315 L (7.320-7.420) Sodium 131 L (137-145) mmol/L Creatinine 0.5 L (0.7-1.2) mg/dL Glucose 403 H (65-100) mg/dL ALT (7-56) units/L Total Protein (6.3-8.2) g/dL Albumin (3.9-5) g/dL Ur Specific [place] (1.003-1.030) Urine WBC (Auto) (0.0-6.0) /HPF 08/25/18 08/25/18 Range/Units 09:56 12:45 WBC (4.5-11.0) K/mm3 RDW (13.2-15.2) % Seg Neutrophils % (40.0-70.0) % Seg Neutrophils # (1.8-7.7) K/mm3 VBG pH (7.320-7.420) Sodium (137-145) mmol/L Creatinine (0.7-1.2) mg/dL Glucose (65-100) mg/dL ALT 6 L (7-56) units/L Total Protein 6.1 L (6.3-8.2) g/dL Albumin 3.5 L (3.9-5) g/dL Ur Specific [place] 1.039 H (1.003-1.030) Urine WBC (Auto) 45.0 H (0.0-6.0) /HPF Assessment and Plan - Patient Problems (1) SIRS (systemic inflammatory response syndrome) Current Visit: Yes Status: Acute Plan to address problem: IV antibiotic therapy, blood cultures, CBC, CMP, urinalysis, chest x ray, serial lactic acid, (2) Acute pyelonephritis Current Visit: Yes Status: Acute Plan to address problem: IV antibiotic therapy, urinalysis, monitor uop q shift. (3) Hyperglycemia due to type 1 diabetes mellitus Current Visit: Yes Status: Acute Plan to address problem: ADA diet, insulin, accu check, dietary education (4) DVT prophylaxis Current Visit: No Status: Acute Plan to address problem: SCD to BLE while in bed.
[2018-08-25] MEDS: NACL 0.45% 1000 ML 1,000 ML IV SCH ×2 (15:20→23:03)
[2018-08-25] MEDS: HumaLOG SUB-Q SCH (17:20)
[2018-08-25] MEDS: SODIUM CHLORIDE FLUSH SYRINGE 10 ML IV SCH (22:00)
[2018-08-26] MEDS: HumaLOG SUB-Q SCH ×5 (01:05→22:56)
[2018-08-26] MEDS: NACL 0.45% 1000 ML 1,000 ML IV SCH ×3 (05:30→21:39)
[2018-08-26 07:33] LABS: Basophils % (Auto) 0.5 % (0.0-1.8); Eosinophils # (Auto) 0.2 K/mm3 (0.0-0.4); Hematocrit 38.3 % (30.3-42.9); Hemoglobin 12.8 gm/dl (10.1-14.3); Lymphocytes # (Auto) 2.8 K/mm3 (1.2-5.4); Lymphocytes % (Auto) 30.6 % (13.4-35.0); Mean Corpuscular HGB Conc 33 % (30-34); Mean Corpuscular Volume 92 fl (79-97); Monocytes # (Auto) 0.5 K/mm3 (0.0-0.8); Monocytes % (Auto) 4.9 % (0.0-7.3); Platelet Count 318 K/mm3 (140-440); Red Blood Count 4.16 M/mm3 (3.65-5.03)
[2018-08-26] MEDS: SODIUM CHLORIDE FLUSH SYRINGE 10 ML IV SCH ×2 (09:59→21:29)
[2018-08-26] MEDS ORDERED: D50W (25GM) Syringe IV PRN (10:37)
--- NOTE | 2018-08-26 15:29 | Progress Note ---
Assessment and Plan Assessment and plan: Patient is a 27 yo woman with a history of IDDM who presents with uncontrolled DM. Pt seen and evaluated in ED and found to have SIRS, UTI, and Uncontrolled DM. Pt admitted to medical floor * Renal u/s renal parenchymal disease -Sepsis UTI, poa, no radiographic/PE evidence of pyelonephritis: continue abx, await urine culture -Hyperglycemia due to type 1 Diabetes Mellitus, A1c 16.5: change insulin from 70/30 to Lantus and increase dosage. History Interval history: Patient was seen and examined. Follow-up on current diagnosis of DM. Overnight uneventful. Patient denies any chest pain, shortness breath, nausea/vomiting or severe headaches. Imaging, nursing note, chart, labs and old chart reviewed. Discussed with patient. Hospitalist Physical - Physical exam Narrative exam: GEN: WDWN, NAD, Awake, Alert, Orientated HEENT: NCAT, EOMI, PERRL, OP Clear NECK: supple, no adenopathy, no thyromegaly, no JVD CVS/HEART: RRR, normal S1S2, pulses present bilaterally CHEST/LUNGS: CTA B, Symmetrical chest expansion, good air entry bilaterally GI/Abdomen: soft, NTND, good bowel sounds, no guarding or rebound /Bladder: no suprapubic tenderness, no CVA or paraspinal tenderness EXT/Skin: no c/c/e, no obvious rash MSK: FROM x 4 Neuro: CN 2-12 grossly intact, no new focal deficits Psych: calm - Constitutional Vitals: Temp Pulse Resp BP Pulse Ox 98.5 F 110 H 20 150/110 99 08/26/18 12:53 08/26/18 12:53 08/26/18 12:53 08/26/18 12:53 08/26/18 12:53 Results - Labs CBC & Chem 7: 08/26/18 06:48 08/25/18 09:35 Labs: Laboratory Last Values WBC 9.3 K/mm3 (4.5-11.0) 08/26/18 06:48 RBC 4.16 M/mm3 (3.65-5.03) 08/26/18 06:48 Hgb 12.8 gm/dl (10.1-14.3) 08/26/18 06:48 Hct 38.3 % (30.3-42.9) 08/26/18 06:48 MCV 92 fl (79-97) 08/26/18 06:48 MCH 31 pg (28-32) 08/26/18 06:48 MCHC 33 % (30-34) 08/26/18 06:48 RDW 13.0 % (13.2-15.2) L 08/26/18 06:48 Plt Count 318 K/mm3 (140-440) 08/26/18 06:48 Lymph % (Auto) 30.6 % (13.4-35.0) 08/26/18 06:48 [place] % (Auto) 4.9 % (0.0-7.3) 08/26/18 06:48 Eos % (Auto) 2.0 % (0.0-4.3) 08/26/18 06:48 Baso % (Auto) 0.5 % (0.0-1.8) 08/26/18 06:48 Lymph # 2.8 K/mm3 (1.2-5.4) 08/26/18 06:48 [place] # 0.5 K/mm3 (0.0-0.8) 08/26/18 06:48 Eos # 0.2 K/mm3 (0.0-0.4) 08/26/18 06:48 Baso # 0.0 K/mm3 (0.0-0.1) 08/26/18 06:48 Seg Neutrophils % 62.0 % (40.0-70.0) 08/26/18 06:48 Seg Neutrophils # 5.8 K/mm3 (1.8-7.7) 08/26/18 06:48 VBG pH 7.315 (7.320-7.420) L 08/25/18 09:35 Sodium 131 mmol/L (137-145) L 08/25/18 09:35 Potassium 4.8 mmol/L (3.6-5.0) 08/25/18 09:35 Chloride 99.2 mmol/L (98-107) 08/25/18 09:35 Carbon Dioxide 22 mmol/L (22-30) 08/25/18 09:35 Anion Gap 15 mmol/L 08/25/18 09:35 BUN 10 mg/dL (7-17) 08/25/18 09:35 Creatinine 0.5 mg/dL (0.7-1.2) L 08/25/18 09:35 Estimated GFR > 60 ml/min 08/25/18 09:35 BUN/Creatinine Ratio 20 % 08/25/18 09:35 Glucose 403 mg/dL (65-100) H 08/25/18 09:35 Hemoglobin A1c 16.5 % (4-6) H 08/25/18 09:35 Lactic Acid 1.20 mmol/L (0.7-2.0) 08/25/18 12:45 Calcium 9.3 mg/dL (8.4-10.2) 08/25/18 09:35 Total Bilirubin 0.70 mg/dL (0.1-1.2) 08/25/18 12:45 Direct Bilirubin < 0.2 mg/dL (0-0.2) 08/25/18 12:45 Indirect Bilirubin 0.5 mg/dL 08/25/18 12:45 AST 10 units/L (5-40) 08/25/18 12:45 ALT 6 units/L (7-56) L 08/25/18 12:45 Alkaline Phosphatase 80 units/L (35-129) 08/25/18 12:45 Total Protein 6.1 g/dL (6.3-8.2) L 08/25/18 12:45 Albumin 3.5 g/dL (3.9-5) L 08/25/18 12:45 Albumin/Globulin Ratio 1.3 % 08/25/18 12:45 HCG, Qual Negative (Negative) 08/25/18 09:35 Urine Color Yellow (Yellow) 08/25/18 09:56 Urine Turbidity Slightly-cloudy (Clear) 08/25/18 09:56 Urine pH 6.0 (5.0-7.0) 08/25/18 09:56 Ur Specific [place] 1.039 (1.003-1.030) H 08/25/18 09:56 Urine Protein <15 mg/dl mg/dL (Negative) 08/25/18 09:56 Urine Glucose (UA) 150 mg/dL (Negative) 08/25/18 09:56 Urine Ketones 80 mg/dL (Negative) 08/25/18 09:56 Urine Blood Neg (Negative) 08/25/18 09:56 Urine Nitrite Neg (Negative) 08/25/18 09:56 Urine Bilirubin Neg (Negative) 08/25/18 09:56 Urine Urobilinogen < 2.0 mg/dL (<2.0) 08/25/18 09:56 Ur Leukocyte Esterase Lg (Negative) 08/25/18 09:56 Urine WBC (Auto) 45.0 /HPF (0.0-6.0) H 08/25/18 09:56 Urine RBC (Auto) 11.0 /HPF (0.0-6.0) 08/25/18 09:56 U Epithel Cells (Auto) 3.0 /HPF (0-13.0) 08/25/18 09:56 Urine Bacteria (Auto) 1+ /HPF (Negative) 08/25/18 09:56
[2018-08-26] MEDS ORDERED: LANTUS SUB-Q SCH (22:00)
[2018-08-27] MEDS: NACL 0.45% 1000 ML 1,000 ML IV SCH (07:38)
[2018-08-27] MEDS: HumaLOG SUB-Q SCH ×3 (08:26→17:12)
[2018-08-27] MEDS: SODIUM CHLORIDE FLUSH SYRINGE 10 ML IV SCH (09:41)
[2018-08-27 12:46] VITALS: BP 120/61
--- NOTE | 2018-08-27 15:32 | Discharge Summary ---
Providers - Providers Date of Admission: 08/25/18 12:36 Date of discharge: 08/27/18 Attending physician: SUJIT WHITNEY [facility] Condition: Stable Hospital course: Patient is a 27 yo woman with a history of IDDM who presents with uncontrolled DM. Pt seen and evaluated in ED and found to have SIRS, UTI, and Uncontrolled DM. Pt admitted to medical floor * Renal u/s renal parenchymal disease -Sepsis UTI, poa, no radiographic/PE evidence of pyelonephritis: continue abx, await urine culture==>contaminated -Hyperglycemia due to type 1 Diabetes Mellitus, A1c 16.5: change insulin from 70/30 to Lantus and increase dosage. I was told by SALUD Miner that accucheck guy jolley was broken and another machine. No accuchecks documented in EMR but [employer]UD Miner have them written down, last accucheck at noon was 104. I have asked RN to document. Disposition: DC-01 TO HOME OR SELFCARE Time spent for discharge: 32 minutes Core Measure Documentation - Palliative Care Palliative Care/ Comfort Measures: Not Applicable - Core Measures Any of the following diagnoses?: none - VTE Discharge Requirements Deep Vein Thrombosis/Pulmonary Embolism Present on Admission: No Has pt received <5 days of overlap therapy or INR<2.0: No Anticoagulant overlap therapy prescribed at discharge: No Contraindication No Overlap Therapy order at DC: Not Indicated Exam - Physical Exam Narrative exam: GEN: WDWN, NAD, Awake, Alert, Orientated HEENT: NCAT, EOMI, PERRL, OP Clear NECK: supple, no adenopathy, no thyromegaly, no JVD CVS/HEART: RRR, normal S1S2, pulses present bilaterally CHEST/LUNGS: CTA B, Symmetrical chest expansion, good air entry bilaterally GI/Abdomen: soft, NTND, good bowel sounds, no guarding or rebound /Bladder: no suprapubic tenderness, no CVA or paraspinal tenderness EXT/Skin: no c/c/e, no obvious rash MSK: FROM x 4 Neuro: CN 2-12 grossly intact, no new focal deficits Psych: calm - Constitutional Vitals: Temp Pulse Resp BP Pulse Ox 98.3 F 97 H 16 120/61 96 08/27/18 12:44 08/27/18 12:44 08/27/18 12:44 08/27/18 12:44 08/27/18 12:44 Plan Activity: other (no strenous activity) Diet: diabetic Special Instructions: record blood sugar diary (three times a day with meals) [facility] Care Provider[facility] - 3-5 Days Prescriptions: Insulin Glargine [Lantus VIAL] 30 units SUB-Q QHS #100 units Lispro Insulin [Humalog] 1 dose SUB-Q ACHS PRN #100 units PRN Reason: Hyperglycemia levoFLOXacin [Levaquin TAB] 500 mg PO QDAY #5 tablet
== END 2018-08-27 16:45 | disposition home or self-care (01) | DRG 872 ==
LOC: ED 08:59 → 3A 12:36
PROVIDERS: ADMIT Internal Medicine; ATTEND Internal Medicine
DX: A41.9 Sepsis, unspecified organism (principal); E10.65 Type 1 diabetes mellitus with hyperglycemia; N10 Acute pyelonephritis; I10 Essential (primary) hypertension; Z82.49 Family history of ischemic heart disease and other diseases of the circulatory system; Z83.3 Family history of diabetes mellitus; Z79.4 Long term (current) use of insulin
CPT/HCPCS: 36415; 76770; 80048; 80076; 81001; 82140; 82805; 82962; 83036; 84703; 85025; 87040; 87086; 96361; 96365; 96375; G0378; J0696; J1815; J1885; J7030

== ENCOUNTER 2018-09-15 18:53 | Emergency (ER) | payer MEDICAID ==
--- NOTE | 2018-09-15 19:52 | Emergency Department Report ---
Blank Doc - Documentation Documentation: This is a 27-year-old female that presents with hyperglycemia. Patient has been taking Lantus. BG in triage greater then >500. This initial assessment/diagnostic orders/clinical plan/treatment(s) is/are subject to change based on patient's health status, clinical progression and re- assessment by fellow clinical providers in the ED. Further treatment and workup at subsequent clinical providers discretion. Patient/guardians urged not to elope from the ED as their condition may be serious if not clinically assessed and managed. Initial orders include: 1- Patient sent to MAIN ED for further evaluation and treatment 2- labs 3- [employer] glass science engineer has been notified to have the patient be brought back [facility].
[2018-09-15 21:00] LABS: Basophils # (Auto) 0.1 K/mm3 (0.0-0.1); Basophils % (Auto) 0.5 % (0.0-1.8); Eosinophils # (Auto) 0.1 K/mm3 (0.0-0.4); Eosinophils % (Auto) 0.8 % (0.0-4.3); Hematocrit 46.8 % (30.3-42.9); Hemoglobin 15.5 gm/dl (10.1-14.3); Lymphocytes # (Auto) 2.1 K/mm3 (1.2-5.4); Lymphocytes % (Auto) 18.9 % (13.4-35.0); Mean Corpuscular HGB Conc 33 % (30-34); Mean Corpuscular Volume 94 fl (79-97); Monocytes # (Auto) 0.6 K/mm3 (0.0-0.8); Monocytes % (Auto) 5.4 % (0.0-7.3); Platelet Count 400 K/mm3 (140-440); Red Blood Count 5.01 M/mm3 (3.65-5.03)
[2018-09-15 21:47] LABS: Alanine Aminotransferase 11 units/L (7-56); Albumin 4.4 g/dL (3.9-5); BUN/Creatinine Ratio 15; Blood Urea Nitrogen 12 mg/dL (7-17); Calcium 10.1 mg/dL (8.4-10.2); Hemolysis Index 7
[2018-09-15 21:53] LABS: Bilirubin,Direct < 0.2 mg/dL (0-0.2)
[2018-09-15 22:46] LABS: Bilirubin,Urine NEG (Negative); Blood,Urine NEG (Negative); Color,Urine Colorless (Yellow); Mucus,Urine FEW /HPF; Protein,Urine <15 mg/dL mg/dL (Negative); RBC,Urine < 1.0 /HPF (0.0-6.0); Urobilinogen,Urine < 2.0 mg/dL (<2.0); WBC,Urine < 1.0 /HPF (0.0-6.0)
[2018-09-15] MEDS ORDERED: NACL 0.9% 1000 ML 1,000 ML IV ONE (22:56)
[2018-09-15] MEDS ORDERED: HumuLIN R IV ONE (22:56)
--- NOTE | 2018-09-15 23:10 | Emergency Department Report ---
HPI <MCGREGORDARCY - Last Filed: 09/16/18 03:14> - HPI HPI: 27-year-old -[place] female presents to the emergency department with complaint of some blurry vision, lightheadedness and elevated blood sugar. She has a history of insulin-dependent diabetes for which she takes 30 units of Lantus each night and she says that she has been taking her insulin compliantly. She had 2-3 different episodes in which she said that her vision "went black" and then she felt like she was off balance. She also had some transient shortness of breath. She follows with [facility] for primary care needs. She denies any tobacco or illicit drug use or abuse. No recent travel or sick contacts at home. <KELSEY MONREAL - Last Filed: 09/16/18 16:47> - General Chief Complaint: Hyperglycemia Time Seen by Provider: 09/15/18 19:50 ED Past Medical Hx <KRISHAN MCGREGORNETTA - Last Filed: 09/16/18 03:14> - Past Medical History Hx Hypertension: Yes (during ) Hx Congestive Heart Failure: No Hx Diabetes: Yes Hx Deep Vein Thrombosis: No Hx Renal Disease: No Hx Sickle Cell Disease: No Hx Seizures: No Hx Psychiatric Treatment: No Hx Asthma: No Hx COPD: No Hx HIV: No Additional medical history: boil under left axilla with I&d - Surgical History Additional Surgical History: x 2 - Social History Smoking Status: Never Smoker Substance Use Type: None <KELSEY MONREAL - Last Filed: 09/16/18 16:47> - Medications Home Medications: Home Medications Medication Instructions Recorded Confirmed Last Taken Type ALBUTEROL NEB's [Proventil 0.083% 2.5 mg IH Q4HRT PRN #15 nebu 08/27/18 Unknown Rx NEBS] Acetaminophen [Acetaminophen TAB] 650 mg PO Q4H PRN #15 tablet 08/27/18 Unknown Rx Insulin Glargine [Lantus VIAL] 30 units SUB-Q QHS #100 units 08/27/18 Unknown Rx Lispro Insulin [Humalog] 1 dose SUB-Q ACHS PRN #100 units 08/27/18 Unknown Rx levoFLOXacin [Levaquin TAB] 500 mg PO QDAY #5 tablet 08/27/18 Unknown Rx ED Review of Systems ROS: Stated complaint: SOB/BODY ACHES Other details as noted in HPI <DARCY MCGREGOR - Last Filed: 09/16/18 03:14> ROS: Stated complaint: SOB/BODY ACHES Other details as noted in HPI Comment: All other systems reviewed and negative Constitutional: denies: chills, fever Eyes: vision change. denies: eye pain ENT: denies: ear pain, throat pain Respiratory: denies: cough, shortness of breath Cardiovascular: denies: chest pain, palpitations Gastrointestinal: nausea. denies: vomiting Genitourinary: denies: dysuria, discharge Musculoskeletal: denies: back pain, arthralgia Skin: denies: rash, lesions Neurological: other (dizziness, lightheadedness). denies: headache <KELSEY MONREAL - Last Filed: 09/16/18 16:47> Physical Exam - Physical Exam Vital Signs: Vital Signs 09/15/18 09/15/18 09/15/18 19:41 19:51 21:43 Temperature 98.7 F 98.7 F Pulse Rate 129 H 131 H Respiratory 18 18 Rate Blood Pressure 126/81 126/81 140/107 Blood Pressure [Left] O2 Sat by Pulse 100 100 Oximetry 09/15/18 09/16/18 09/16/18 23:16 01:00 01:16 Temperature Pulse Rate 117 H 108 H 107 H Respiratory 15 16 14 Rate Blood Pressure 118/77 117/85 117/85 Blood Pressure [Left] O2 Sat by Pulse 97 99 99 Oximetry 09/16/18 02:17 Temperature Pulse Rate 107 H Respiratory Rate Blood Pressure Blood Pressure 105/64 [Left] O2 Sat by Pulse 98 Oximetry <DARCY MCGREGOR - Last Filed: 09/16/18 03:14> - Physical Exam Vital Signs: Vital Signs 09/15/18 09/15/18 19:41 19:51 Temperature 98.7 F 98.7 F Pulse Rate 129 H 131 H Respiratory 18 18 Rate Blood Pressure 126/81 126/81 O2 Sat by Pulse 100 100 Oximetry Physical Exam: GENERAL: The patient is well-developed well-nourished. HEENT: Normocephalic. Atraumatic. Patient has moist mucous membranes. EYES: Extraocular motions are intact. Pupils are equal and reactive to light bilaterally. No nystagmus. NECK: Supple. Trachea is midline. CHEST/LUNGS: Clear to auscultation. There is no respiratory distress noted. HEART/CARDIOVASCULAR: Regular. There is mild tachycardia. There is no obvious murmur. ABDOMEN: Abdomen is soft, nontender. Patient has normal bowel sounds. There is no abdominal distention. SKIN: Skin is warm and dry. NEURO: The patient is awake, alert, and oriented. The patient is cooperative. The patient has no focal neurologic deficits. The patient has normal speech. Cranial nerves II through XII grossly intact. No pronator drift. No dysmetria. MUSCULOSKELETAL: There is no tenderness or deformity. There is no limitation range of motion. There is no evidence of acute injury. <KELSEY MONREAL - Last Filed: 09/16/18 16:47> ED Course Vital Signs 09/15/18 09/15/18 09/15/18 19:41 19:51 21:43 Temperature 98.7 F 98.7 F Pulse Rate 129 H 131 H Respiratory 18 18 Rate Blood Pressure 126/81 126/81 140/107 Blood Pressure [Left] O2 Sat by Pulse 100 100 Oximetry 09/15/18 09/16/18 09/16/18 23:16 01:00 01:16 Temperature Pulse Rate 117 H 108 H 107 H Respiratory 15 16 14 Rate Blood Pressure 118/77 117/85 117/85 Blood Pressure [Left] O2 Sat by Pulse 97 99 99 Oximetry 09/16/18 02:17 Temperature Pulse Rate 107 H Respiratory Rate Blood Pressure Blood Pressure 105/64 [Left] O2 Sat by Pulse 98 Oximetry <DARCY MCGREGOR - Last Filed: 09/16/18 03:14> Vital Signs 09/15/18 09/15/18 19:41 19:51 Temperature 98.7 F 98.7 F Pulse Rate 129 H 131 H Respiratory 18 18 Rate Blood Pressure 126/81 126/81 O2 Sat by Pulse 100 100 Oximetry <KELSEY MONREAL - Last Filed: 09/16/18 16:47> ED Medical Decision Making - Lab Data Result diagrams: 09/15/18 20:18 09/15/18 20:18 - Medical Decision Making I assumed care of Tierre from my colleague Dr. Monreal. D-dimer and CXR were obtained for evaluation of dyspnea. Both unremarkable. I updated patient. She was appropriately discharged home. <DARCY MCGREGOR - Last Filed: 09/16/18 03:14> - Lab Data Result diagrams: 09/15/18 20:18 09/15/18 20:18 - Radiology Data Radiology results: report reviewed, image reviewed interpreted by me: Chest x-ray does not show any pneumothorax, pleural effusion, pneumonia or obvious focal consolidation. PROCEDURE: CT HEAD/BRAIN WO CON HISTORY: headache FINDINGS: Unenhanced CT of the brain was performed and demonstrates no acute intracranial hemorrhage, extra-axial fluid collection, midline shift or mass effect. The ventricles and basal cisterns are not effaced. The mastoid air cells and middle ears appear clear. There is no evidence of acute sinusitis. IMPRESSION: No acute intracranial hemorrhage This document is electronically signed by Everardo Rg MD., September 16 2018 02:20:42 AM ET Transcribed By: SHIRA Dictated By: EVERARDO RG MD Electronically Authenticated By: EVERARDO RG MD Signed Date/Time: 09/16/18 0222 - Medical Decision Making This patient presented to the emergency department with complaint of some nonspecific dizziness and lightheadedness, some transient shortness of breath and with hypoglycemia. The patient's blood sugar was about 680 but she does not appear in ketoacidosis as there is no significant elevation in her anion gap, any venous acidosis or any ketones in the urine. She was given IV fluid resuscitation and IV insulin and her blood sugar came down to about 200. She had a CT scan of the head that did not show any bleed, shift, mass, ischemia, or any other acute process. Chest x-ray did not show any focal consolidation, pneumonia, pneumothorax, pleural effusions, or any other acute process. Vital signs improved in regards to her tachycardia and the rest of the vitals were stable including being afebrile. She was reevaluated multiple times over multiple hours and is feeling greatly improved. Prior to discharge, the patient was ambulatory in the emergency department with appears and feels stable. She's been given referrals for primary care and instructed to return to the emergency Department with any worsening of her symptoms or any acute distress. - Differential Diagnosis DKA, HHNK, Pneumonia, Tension WANG, Migraine <KELSEY MONREAL - Last Filed: 09/16/18 16:47> Critical care attestation.: If time is entered above; I have spent that time in minutes in the direct care of this critically ill patient, excluding procedure time. <DARCY MCGREGOR - Last Filed: 09/16/18 03:14> Critical Care Time: No Critical care attestation.: If time is entered above; I have spent that time in minutes in the direct care of this critically ill patient, excluding procedure time. <KELSEY MONREAL - Last Filed: 09/16/18 16:47> ED Disposition Is pt being admited?: No Does the pt Need Aspirin: No <DARCY MCGREGOR - Last Filed: 09/16/18 03:14> Is pt being admited?: No Time of Disposition: 02:31 <KELSEY MONREAL - Last Filed: 09/16/18 16:47> Clinical Impression: Hyperglycemia due to type 1 diabetes mellitus, Shortness of breath, Lightheaded Disposition: DC-01 TO HOME OR SELFCARE Condition: Stable Instructions: Diabetes Mellitus Type 2 in Adults (ED), Dyspnea (ED), Lightheadedness (ED), Diabetic Hyperglycemia (ED) Additional Instructions: Please follow up with her primary care physician in the next few days. Return to the emergency Department with any worsening of your symptoms or any acute distress. Referrals: GUSTAVO GUZMÁN MD [Primary Care Provider] - [facility]
[2018-09-16] MEDS ORDERED: NORCO 5/325 PO ONE (01:12)
[2018-09-16] MEDS ORDERED: NACL 0.9% 1000 ML 1,000 ML IV ONE (01:25)
--- NOTE | 2018-09-16 02:22 | Cat Scan Report ---
PROCEDURE: CT HEAD/BRAIN WO CON HISTORY: headache FINDINGS: Unenhanced CT of the brain was performed and demonstrates no acute intracranial hemorrhage, extra-axial fluid collection, midline shift or mass effect. The ventricles and basal cisterns are no t effaced. The mastoid air cells and middle ears appear clear. There is no evidence of acute sinusitis. IMPRESSION: No acute intracranial hemorrhage This document is electronically signed by Everardo Rg MD., September 16 2018 02:20:42 AM ET
[2018-09-16 03:34] VITALS: BP 98/58
--- NOTE | 2018-09-16 03:44 | XRay Report ---
PROCEDURE: XR CHEST 1V AP TECHNIQUE: Chest radiograph single view. HISTORY: SOB COMPARISONS: None . FINDINGS: Heart: Normal. Mediastinum/Vessels: Normal. Lungs/Pleural space: Normal. Bony thorax: No acute osseous abnormality. Life support devices: None. IMPRESSION: No acute cardiopulmonary abnormality. This document is electronically signed by Marylin Aguilar MD., September 16 2018 03:42:24 AM ET
== END 2018-09-16 03:35 | disposition home or self-care (01) ==
LOC: ED 18:53
DX: E10.65 Type 1 diabetes mellitus with hyperglycemia (principal); R42 Dizziness and giddiness; R06.02 Shortness of breath; Z79.4 Long term (current) use of insulin
CPT/HCPCS: 36415; 70450; 71045; 80048; 80076; 81001; 82805; 82962; 83690; 84703; 85025; 85379; 96361; 96374; 99285; J7030; J1815

== ENCOUNTER 2018-09-17 15:33 | Emergency (ER) | payer MEDICAID ==
[2018-09-17] MEDS ORDERED: NACL 0.9% 1000 ML 1,000 ML IV ONE ×2 (16:19→19:12)
--- NOTE | 2018-09-17 16:29 | Emergency Department Report ---
HPI - General Chief Complaint: Hyperglycemia Time Seen by Provider: 09/17/18 16:13 - HPI HPI: 27-year-old female presents to the emergency department via EMS from home with complaint of dizziness/lightheadedness and hyperglycemia. The pa bianka is well-known to me as I saw her two nights ago for similar symptoms in this emergency department. At that time the patient had a blood sugar of about 650 did not appear to be in diabetic ketoacidosis and her blood sugar came down to about 200. She had a negative CT of the head and chest x-ray done at that time. She has had a negative d-dimer. The patient goes to [facility] for primary care. She is only on Lantus for diabetes control. ED Past Medical Hx - Past Medical History Previous Medical History?: Yes Hx Hypertension: Yes (during ) Hx CVA: No Hx Heart Attack/AMI: No Hx Congestive Heart Failure: No Hx Diabetes: Yes Hx Deep Vein Thrombosis: No Hx Pulmonary Embolism: No Hx GERD: No Hx Liver Disease: No Hx Renal Disease: No Hx of Cancer: No Hx Sickle Cell Disease: No Hx Arthritis: No Hx Headaches / Migraines: No Hx Seizures: No Hx Kidney Stones: No Hx Psychiatric Treatment: No Hx Asthma: No Hx COPD: No Hx Dementia: No Hx HIV: No Additional medical history: boil under left axilla with I&d - Surgical History Past Surgical History?: No Hx Coronary Stent: No Hx Open Heart Surgery: No Hx Pacemaker: No Hx Internal Defibrillator: No Hx Cholecystectomy: No Hx Appendectomy: No Hx Breast Surgery: No Additional Surgical History: x 2 - Social History Smoking Status: Never Smoker Substance Use Type: None - Medications Home Medications: Home Medications Medication Instructions Recorded Confirmed Last Taken Type ALBUTEROL NEB's [Proventil 0.083% 2.5 mg IH Q4HRT PRN #15 nebu 08/27/18 Unknown Rx NEBS] Acetaminophen [Acetaminophen TAB] 650 mg PO Q4H PRN #15 tablet 08/27/18 Unknown Rx Insulin Glargine [Lantus VIAL] 30 units SUB-Q QHS #100 units 08/27/18 Unknown Rx Lispro Insulin [Humalog] 1 dose SUB-Q ACHS PRN #100 units 08/27/18 Unknown Rx levoFLOXacin [Levaquin TAB] 500 mg PO QDAY #5 tablet 08/27/18 Unknown Rx Insulin NPH/Regular [Novolin 70/30] 10 unit SUB-Q BID #1 vial 09/17/18 Unknown Rx ED Review of Systems ROS: Stated complaint: HYPERGLYCEMIA Other details as noted in HPI Comment: All other systems reviewed and negative Constitutional: denies: chills, fever Eyes: denies: eye pain, vision change ENT: denies: ear pain, throat pain Respiratory: denies: cough, shortness of breath Cardiovascular: denies: chest pain, palpitations Gastrointestinal: nausea. denies: vomiting Genitourinary: frequency. denies: dysuria, discharge Musculoskeletal: denies: back pain, arthralgia Skin: denies: rash, lesions Neurological: headache, other (dizziness/lightheaded) Physical Exam - Physical Exam Vital Signs: Vital Signs 09/17/18 16:06 Temperature 99.7 F H Pulse Rate 95 H Respiratory 15 Rate Blood Pressure 111/78 Blood Pressure 111/78 [Right] O2 Sat by Pulse 100 Oximetry Physical Exam: GENERAL: The patient is well-developed well-nourished. HEENT: Normocephalic. Atraumatic. Patient has moist mucous membranes. EYES: Extraocular motions are intact. Pupils are equal and reactive to light bilaterally. No nystagmus. NECK: Supple. Trachea is midline. CHEST/LUNGS: Clear to auscultation. There is no respiratory distress noted. HEART/CARDIOVASCULAR: Regular. There is no tachycardia. There is no obvious murmur. ABDOMEN: Abdomen is soft, nontender. Patient has normal bowel sounds. There is no abdominal distention. SKIN: Skin is warm and dry. NEURO: The patient is awake, alert, and oriented. The patient is cooperative. The patient has no focal neurologic deficits. The patient has normal speech. Cranial nerves II through XII grossly intact. MUSCULOSKELETAL: There is no tenderness or deformity. There is no limitation range of motion. There is no evidence of acute injury. ED Course Vital Signs 09/17/18 16:06 Temperature 99.7 F H Pulse Rate 95 H Respiratory 15 Rate Blood Pressure 111/78 Blood Pressure 111/78 [Right] O2 Sat by Pulse 100 Oximetry ED Medical Decision Making - Lab Data Result diagrams: 09/17/18 16:28 09/17/18 16:28 - Medical Decision Making This patient presents to the emergency department with a return of her dizziness and lightheadedness as well as hyperglycemia. The patient is only on long- acting Lantus at night which does not appear to be controlling her diabetes. On examination she does not have any focal, motor or sensory deficits in her cranial nerves appear intact. The patient was seen by me 2 nights prior and had a negative CT head and chest x-ray at that time. Today, once again, she was given some IV insulin and IV fluid resuscitation. Her blood sugar came down to about 250. The rest of her labs have been unremarkable. Her vital signs and stable throughout her ED course. Upon reevaluation, the patient says that she is feeling greatly improved. Prior to discharge, she was seen ambulatory and appears stable. I am starting the patient on Novolin 70/30 at 10 units twice daily to be taken in conjunction with her long-acting Lantus at night. The patient will keep a blood sugar log. She will follow-up with her primary care physician and return to the ER with any worsening of her symptoms or any acute distress. - Differential Diagnosis DKA, HHNK, Dehydration, Electrolyte abnormalities Critical Care Time: No Critical care attestation.: If time is entered above; I have spent that time in minutes in the direct care of this critically ill patient, excluding procedure time. ED Disposition Clinical Impression: Hyperglycemia, Hyperglycemia due to type 1 diabetes mellitus, Lightheaded Disposition: DC-01 TO HOME OR SELFCARE Is pt being admited?: No Condition: Stable Instructions: Diabetes Mellitus Type 2 in Adults (ED) Additional Instructions: Please follow up with her primary care physician in the next few days. Continue her Lantus but I am adding Novolin 70/30 for diabetes regiment. This is to be taken twice daily. Make sure to check your blood sugar multiple times each day including with each meal and prior to taking her insulin. Return to the emergency Department with any worsening of your symptoms or any acute distress. Prescriptions: Insulin NPH/Regular [Novolin 70/30] 10 unit SUB-Q BID #1 vial Referrals: YASMANY PINZON MD [Primary Care Provider] - 3-5 Days [facility] [Outside] - 3-5 Days Time of Disposition: 21:33
[2018-09-17 16:38] LABS: Basophils % (Auto) 0.3 % (0.0-1.8); Eosinophils # (Auto) 0.2 K/mm3 (0.0-0.4); Eosinophils % (Auto) 2.3 % (0.0-4.3); Hematocrit 40.4 % (30.3-42.9); Hemoglobin 13.6 gm/dl (10.1-14.3); Lymphocytes # (Auto) 1.8 K/mm3 (1.2-5.4); Lymphocytes % (Auto) 22.6 % (13.4-35.0); Mean Corpuscular HGB Conc 34 % (30-34); Mean Corpuscular Volume 93 fl (79-97); Monocytes # (Auto) 0.4 K/mm3 (0.0-0.8); Monocytes % (Auto) 5.4 % (0.0-7.3); Platelet Count 277 K/mm3 (140-440); Red Blood Count 4.35 M/mm3 (3.65-5.03); Red Cell Distribution Width 13.2 % (13.2-15.2)
[2018-09-17] MEDS ORDERED: TYLENOL PO ONE (16:39)
[2018-09-17 17:29] LABS: Alanine Aminotransferase 9 units/L (7-56); Albumin 3.9 g/dL (3.9-5)
[2018-09-17 17:39] LABS: BUN/Creatinine Ratio 12; Blood Urea Nitrogen 7 mg/dL (7-17); Calcium 8.8 mg/dL (8.4-10.2); Hemolysis Index 8
[2018-09-17] MEDS ORDERED: HumuLIN R IV ONE (17:41)
[2018-09-17] MEDS ORDERED: TORADOL IV ONE (17:50)
[2018-09-17 19:10] LABS: Bacteria,Urine 2+ /HPF (Negative); Bilirubin,Urine NEG (Negative); Blood,Urine NEG (Negative); Color,Urine Straw (Yellow); Protein,Urine <15 mg/dL mg/dL (Negative); Urobilinogen,Urine < 2.0 mg/dL (<2.0)
[2018-09-17 21:44] VITALS: BP 126/92
== END 2018-09-17 22:02 | disposition home or self-care (01) ==
LOC: ED 15:33
DX: E10.65 Type 1 diabetes mellitus with hyperglycemia (principal)
CPT/HCPCS: 36415; 80053; 81001; 82805; 82962; 84484; 85025; 96361; 96374; 96375; 99284; J1885; J7030; J1815

== ENCOUNTER 2018-12-12 21:41 | Emergency (ER) | payer MEDICAID ==
--- NOTE | 2018-12-12 21:54 | Event Note ---
ED Screening Note Date of service: 12/12/18 Time: 21:49 ED Screening Note: This is a 28 y.o. F. that presents to the ER with body aches and weakness x 2 days. PMH DM2 This initial assessment/diagnostic orders/clinical plan/treatment(s) is/are subject to change based on patients health status, clinical progression and re- assessment by fellow clinical providers in the ED. Further treatment and workup at subsequent clinical providers discretion. Patient/guardian urged not to elope from the ED as their condition may be serious if not clinically assessed and managed. Initial orders include: POC glucose and labs
[2018-12-12 22:48] LABS: Basophils # (Auto) 0.1 K/mm3 (0.0-0.1); Basophils % (Auto) 0.5 % (0.0-1.8); Eosinophils # (Auto) 0.1 K/mm3 (0.0-0.4); Eosinophils % (Auto) 1.1 % (0.0-4.3); Hematocrit 40.3 % (30.3-42.9); Hemoglobin 13.7 gm/dl (10.1-14.3); Lymphocytes # (Auto) 3.8 K/mm3 (1.2-5.4); Lymphocytes % (Auto) 29.3 % (13.4-35.0); Mean Corpuscular HGB Conc 34 % (30-34); Mean Corpuscular Volume 93 fl (79-97); Monocytes # (Auto) 0.6 K/mm3 (0.0-0.8); Monocytes % (Auto) 4.8 % (0.0-7.3); Platelet Count 332 K/mm3 (140-440); Red Blood Count 4.31 M/mm3 (3.65-5.03)
[2018-12-12 23:06] LABS: BUN/Creatinine Ratio 22; Blood Urea Nitrogen 13 mg/dL (7-17); Calcium 9.7 mg/dL (8.4-10.2); Hemolysis Index 19
[2018-12-13 00:40] LABS: Bilirubin,Urine NEG (Negative); Blood,Urine NEG (Negative); Color,Urine Straw (Yellow); Mucus,Urine FEW /HPF; Protein,Urine <15 mg/dL mg/dL (Negative); Urobilinogen,Urine < 2.0 mg/dL (<2.0)
[2018-12-13 01:48] LABS: HCG Qualitative,Urine Negative (Negative)
[2018-12-13] MEDS ORDERED: TORADOL IV ONE (02:16)
[2018-12-13] MEDS ORDERED: SUBLIMAZE IV ONE (02:16)
[2018-12-13] MEDS ORDERED: NACL 0.9% 1000 ML 1,000 ML IV ONE (02:16)
[2018-12-13] MEDS ORDERED: NACL 0.9% 1000 ML 2,000 ML IV ONE (02:16)
[2018-12-13] MEDS ORDERED: ZOFRAN IV ONE (02:16)
[2018-12-13] MEDS ORDERED: HumuLIN R IV ONE (02:17)
--- NOTE | 2018-12-13 02:18 | Emergency Department Report ---
ED General Adult HPI - General Chief complaint: Pain General Stated complaint: BODY ACHES, SUGAR LEVELS Time Seen by Provider: 12/12/18 21:49 Source: patient, RN notes reviewed, old records reviewed Mode of arrival: Ambulatory Limitations: No Limitations - History of Present Illness Initial comments: This is a pleasant 28-year-old female. I have evaluated her in the past. She has a past medical history of diabetes. The patient typically follows at the [facility]. The patient presents to the emergency room with the complaint of diffuse myalgias, malaise, fatigue. She feels lightheaded, and endorses drymouthed, polydipsia, polyuria. She denies discrete or isolated pain. She denies headache, neck pain, chest pain, abdominal pain. She denies DVT, pulmonary embolus risk factors. She denies being , and she indicates no delivery for having given within the past 6 weeks. She endorses medication compliance, and she denies dietary indiscretions. -: Gradual, days(s) Location: back, left, right, upper extremity, lower extremity Quality: aching Consistency: constant Improves with: none Worsens with: none - Related Data Previous Rx's Medication Instructions Recorded Last Taken Type ALBUTEROL NEB's [Proventil 0.083% 2.5 mg IH Q4HRT PRN #15 nebu 08/27/18 Unknown Rx NEBS] Acetaminophen [Acetaminophen TAB] 650 mg PO Q4H PRN #15 tablet 08/27/18 Unknown Rx Insulin Glargine [Lantus VIAL] 30 units SUB-Q QHS #100 units 08/27/18 Unknown Rx Lispro Insulin [HumaLOG] 1 dose SUB-Q ACHS PRN #100 units 08/27/18 Unknown Rx levoFLOXacin [Levaquin TAB] 500 mg PO QDAY #5 tablet 08/27/18 Unknown Rx Insulin NPH/Regular [Novolin 70/30] 10 unit SUB-Q BID #1 vial 09/17/18 Unknown Rx Acetaminophen [Non-Aspirin Extra 500 mg PO Q6HR PRN #30 tablet 12/13/18 Unknown Rx Strength] Shaniqua Root [Shaniqua] 250 mg PO QID PRN #30 capsule 12/13/18 Unknown Rx Ibuprofen [Motrin] 400 mg PO Q8H PRN #30 tablet 12/13/18 Unknown Rx Allergies Allergy/AdvReac Type Severity Reaction Status Date / Time No Known Allergies Allergy Verified 12/14/17 20:24 ED Review of Systems ROS: Stated complaint: BODY ACHES, SUGAR LEVELS Other details as noted in HPI Constitutional: malaise. denies: fever Eyes: denies: eye discharge ENT: denies: congestion Respiratory: denies: cough Cardiovascular: palpitations. denies: chest pain Gastrointestinal: nausea. denies: abdominal pain Genitourinary: frequency Musculoskeletal: arthralgia, myalgia Skin: denies: lesions Neurological: weakness Psychiatric: anxiety ED Past Medical Hx - Past Medical History Previous Medical History?: Yes Hx Hypertension: Yes (during ) Hx CVA: No Hx Heart Attack/AMI: No Hx Congestive Heart Failure: No Hx Diabetes: Yes (Type 1) Hx Deep Vein Thrombosis: No Hx Pulmonary Embolism: No Hx GERD: No Hx Liver Disease: No Hx Renal Disease: No Hx Sickle Cell Disease: No Hx Arthritis: No Hx Headaches / Migraines: No Hx Seizures: No Hx Kidney Stones: No Hx Psychiatric Treatment: No Hx Asthma: No Hx COPD: No Hx Dementia: No Hx HIV: No Additional medical history: boil under left axilla with I&d - Surgical History Past Surgical History?: Yes Hx Coronary Stent: No Hx Open Heart Surgery: No Hx Pacemaker: No Hx Internal Defibrillator: No Hx Cholecystectomy: No Hx Appendectomy: No Hx Breast Surgery: No Additional Surgical History: x 2 - Social History Smoking Status: Never Smoker Substance Use Type: None - Medications Home Medications: Home Medications Medication Instructions Recorded Confirmed Last Taken Type ALBUTEROL NEB's [Proventil 0.083% 2.5 mg IH Q4HRT PRN #15 nebu 08/27/18 Unknown Rx NEBS] Acetaminophen [Acetaminophen TAB] 650 mg PO Q4H PRN #15 tablet 08/27/18 Unknown Rx Insulin Glargine [Lantus VIAL] 30 units SUB-Q QHS #100 units 08/27/18 Unknown Rx Lispro Insulin [HumaLOG] 1 dose SUB-Q ACHS PRN #100 units 08/27/18 Unknown Rx levoFLOXacin [Levaquin TAB] 500 mg PO QDAY #5 tablet 08/27/18 Unknown Rx Insulin NPH/Regular [Novolin 70/30] 10 unit SUB-Q BID #1 vial 09/17/18 Unknown Rx Acetaminophen [Non-Aspirin Extra 500 mg PO Q6HR PRN #30 tablet 12/13/18 Unknown Rx Strength] Shaniqua Root [Shaniqua] 250 mg PO QID PRN #30 capsule 12/13/18 Unknown Rx Ibuprofen [Motrin] 400 mg PO Q8H PRN #30 tablet 12/13/18 Unknown Rx ED Physical Exam - General Limitations: No Limitations General appearance: alert, anxious - Head Head exam: Present: atraumatic, normocephalic - Eye Eye exam: Present: normal appearance, EOMI. Absent: nystagmus - ENT ENT exam: Present: normal exam, normal orophraynx, mucous membranes moist, normal external ear exam - Neck Neck exam: Present: normal inspection, full ROM. Absent: tenderness, meningismus - Respiratory Respiratory exam: Present: normal lung sounds bilaterally. Absent: respiratory distress - Cardiovascular Cardiovascular Exam: Present: normal rhythm, tachycardia, normal heart sounds. Absent: systolic murmur, diastolic murmur, rubs, gallop - GI/Abdominal GI/Abdominal exam: Present: soft. Absent: distended, tenderness, guarding, rebound, rigid, pulsatile mass - Extremities Exam Extremities exam: Present: normal inspection, full ROM, other (2+ pulses noted in the bilateral upper, lower extremities. Compartments soft. No long bony tenderness. The pelvis is stable.). Absent: pedal edema, joint swelling, calf tenderness - Back Exam Back exam: Present: normal inspection, full ROM. Absent: tenderness, CVA tenderness (R), CVA tenderness (L), paraspinal tenderness, vertebral tenderness - Neurological Exam Neurological exam: Present: alert, oriented X3, normal gait, other (Extraocular movements intact. Tongue midline. No facial droop. Facial sensation intact to light touch in the V1, V2, V3 distribution bilaterally. 5 and 5 strength in 4 extremities.. Sensation is intact to light touch in 4 extremities.). Absent: motor sensory deficit - Psychiatric Psychiatric exam: Present: anxious - Skin Skin exam: Present: warm, dry, intact, normal color. Absent: rash ED Course Vital Signs 12/12/18 12/13/18 12/13/18 21:47 02:48 03:20 Temperature 98.2 F Pulse Rate 118 H 100 H 113 H Respiratory 19 16 16 Rate Blood Pressure 145/99 Blood Pressure 132/89 [Right] O2 Sat by Pulse 100 100 98 Oximetry 12/13/18 04:15 Temperature Pulse Rate 105 H Respiratory 19 Rate Blood Pressure Blood Pressure 127/73 [Right] O2 Sat by Pulse 98 Oximetry - Reevaluation(s) Reevaluation #1: 12/13/18 02:37 For initial diagnosis, including but not limited to: Myositis, viral syndrome, pneumonia, urinary tract infection, hyperglycemia, diabetic ketoacidosis Assessment and plan: 25-year-old female who is tachycardic with hyperglycemia, endorsing polyuria, polydipsia, no documented fevers, physical exam basically unremarkable with the exception of tachycardia, we will treat her symptoms, obtain EKG, obtain x-ray of the chest, and reassess. Patient does not have DVT or pulmonary embolus risk factors, and she is low risk by well's criteria. Her laboratory studies today are not consistent with diabetic acidosis or myositis, urinalysis not consistent with urinary tract infection. Reevaluation #2: 12/13/18 04:37 Heart rate now 101 102 bpm. The patient feels much improved. Accu-Chek improved. X-ray of the chest unremarkable. EKG unremarkable. Patient feels improved. We will discharge the patient home with supportive care. ED Medical Decision Making - Lab Data Result diagrams: 12/12/18 21:59 12/12/18 21:59 Vital Signs 12/12/18 21:47 Temperature 98.2 F Pulse Rate 118 H Respiratory 19 Rate Blood Pressure 145/99 O2 Sat by Pulse 100 Oximetry Lab Results 12/12/18 12/12/18 12/12/18 Range/Units 21:53 21:59 21:59 WBC 12.9 H (4.5-11.0) K/mm3 RBC 4.31 (3.65-5.03) M/mm3 Hgb 13.7 (10.1-14.3) gm/dl Hct 40.3 (30.3-42.9) % MCV 93 (79-97) fl MCH 32 (28-32) pg MCHC 34 (30-34) % RDW 13.0 L (13.2-15.2) % Plt Count 332 (140-440) K/mm3 Lymph % (Auto) 29.3 (13.4-35.0) % Dorado % (Auto) 4.8 (0.0-7.3) % Eos % (Auto) 1.1 (0.0-4.3) % Baso % (Auto) 0.5 (0.0-1.8) % Lymph # 3.8 (1.2-5.4) K/mm3 Dorado # 0.6 (0.0-0.8) K/mm3 Eos # 0.1 (0.0-0.4) K/mm3 Baso # 0.1 (0.0-0.1) K/mm3 Seg Neutrophils % 64.3 (40.0-70.0) % Seg Neutrophils # 8.3 H (1.8-7.7) K/mm3 Sodium 133 L (137-145) mmol/L Potassium 4.5 (3.6-5.0) mmol/L Chloride 95.9 L (98-107) mmol/L Carbon Dioxide 21 L (22-30) mmol/L Anion Gap 21 mmol/L BUN 13 (7-17) mg/dL Creatinine 0.6 L (0.7-1.2) mg/dL Estimated GFR > 60 ml/min BUN/Creatinine Ratio 22 % Glucose 484 H (65-100) mg/dL POC Glucose 491 H (70-105) Calcium 9.7 (8.4-10.2) mg/dL Magnesium (1.7-2.3) mg/dL Total Creatine Kinase (30-135) units/L Urine Color (Yellow) Urine Turbidity (Clear) Urine pH (5.0-7.0) Ur Specific Mammoth (1.003-1.030) Urine Protein (Negative) mg/dL Urine Glucose (UA) (Negative) mg/dL Urine Ketones (Negative) mg/dL Urine Blood (Negative) Urine Nitrite (Negative) Urine Bilirubin (Negative) Urine Urobilinogen (<2.0) mg/dL Ur Leukocyte Esterase (Negative) Urine WBC (Auto) (0.0-6.0) /HPF Urine RBC (Auto) (0.0-6.0) /HPF U Epithel Cells (Auto) (0-13.0) /HPF Urine Mucus /HPF Urine HCG, Qual (Negative) 12/12/18 12/13/18 12/13/18 Range/Units Unknown 01:18 01:18 WBC (4.5-11.0) K/mm3 RBC (3.65-5.03) M/mm3 Hgb (10.1-14.3) gm/dl Hct (30.3-42.9) % MCV (79-97) fl MCH (28-32) pg MCHC (30-34) % RDW (13.2-15.2) % Plt Count (140-440) K/mm3 Lymph % (Auto) (13.4-35.0) % Dorado % (Auto) (0.0-7.3) % Eos % (Auto) (0.0-4.3) % Baso % (Auto) (0.0-1.8) % Lymph # (1.2-5.4) K/mm3 Dorado # (0.0-0.8) K/mm3 Eos # (0.0-0.4) K/mm3 Baso # (0.0-0.1) K/mm3 Seg Neutrophils % (40.0-70.0) % Seg Neutrophils # (1.8-7.7) K/mm3 Sodium (137-145) mmol/L Potassium (3.6-5.0) mmol/L Chloride (98-107) mmol/L Carbon Dioxide (22-30) mmol/L Anion Gap mmol/L BUN (7-17) mg/dL Creatinine (0.7-1.2) mg/dL Estimated GFR ml/min BUN/Creatinine Ratio % Glucose (65-100) mg/dL POC Glucose (70-105) Calcium (8.4-10.2) mg/dL Magnesium 2.00 (1.7-2.3) mg/dL Total Creatine Kinase 63 (30-135) units/L Urine Color Straw (Yellow) Urine Turbidity Clear (Clear) Urine pH 7.0 (5.0-7.0) Ur Specific Mammoth 1.033 H (1.003-1.030) Urine Protein <15 mg/dl (Negative) mg/dL Urine Glucose (UA) >=500 (Negative) mg/dL Urine Ketones 20 (Negative) mg/dL Urine Blood Neg (Negative) Urine Nitrite Neg (Negative) Urine Bilirubin Neg (Negative) Urine Urobilinogen < 2.0 (<2.0) mg/dL Ur Leukocyte Esterase Neg (Negative) Urine WBC (Auto) 3.0 (0.0-6.0) /HPF Urine RBC (Auto) 1.0 (0.0-6.0) /HPF U Epithel Cells (Auto) < 1.0 (0-13.0) /HPF Urine Mucus Few /HPF Urine HCG, Qual Negative (Negative) - EKG Data -: EKG Interpreted by Me EKG shows normal: sinus rhythm Rate: tachycardia - EKG Data 12/13/18 04:37 This is a sinus tachycardia, 106 bpm, normal axis, QTC prolonged, poor progression, borderline left ventricular hypertrophy/high left ventricular voltage. This EKG is not consistent with ST elevation myocardial infarction - Radiology Data Radiology results: report reviewed, image reviewed Critical care attestation.: If time is entered above; I have spent that time in minutes in the direct care of this critically ill patient, excluding procedure time. ED Disposition Clinical Impression: Hyperglycemia Disposition: DC-01 TO HOME OR SELFCARE Is pt being admited?: No Does the pt Need Aspirin: No Condition: Stable Additional Instructions: Continue current outpatient medications. Continue to remain compliant with her diabetic that is appropriate and safe for a patient with diabetes. Take pain medications as needed/directed. Drink 4-6 cups of water per day for the next week. Follow up with her primary care doctor within the next 2 weeks. Return to the emergency room right away with new, worsening or different symptoms not present on the initial emergency room evaluation. Referrals: JOSE LUIS LOVE MD [Primary Care Provider] - 3-5 Days
--- NOTE | 2018-12-13 04:24 | XRay Report ---
PROCEDURE: XR CHEST ROUTINE 2V TECHNIQUE: PA and lateral chest radiographs were obtained. HISTORY: weakness chills myagias hyperglycemiA COMPARISONS: 09/16/2018. FINDINGS: No mediastinal shift. Cardiac silhouette is not enlarged. No pneumothorax, effusion, or focal pulmo nary opacity. No acute skeletal finding. IMPRESSION: No focal pulmonary opacity. This document is electronically signed by Boby Damon MD., December 13 2018 04:22:31 AM ET
[2018-12-13 04:51] VITALS: BP 117/87
== END 2018-12-13 04:51 | disposition home or self-care (01) ==
LOC: ED 21:41
DX: E10.65 Type 1 diabetes mellitus with hyperglycemia (principal); I10 Essential (primary) hypertension; Z79.4 Long term (current) use of insulin; Z79.899 Other long term (current) drug therapy; R42 Dizziness and giddiness
CPT/HCPCS: 36415; 71046; 80048; 81001; 81025; 82550; 82962; 83735; 85025; 93005; 93010; 96361; 96374; 96375; 99284; J1885; J2405; J3010; J7030; J1815

== ENCOUNTER 2018-12-14 17:43 | Emergency (ER) | payer MEDICAID ==
[2018-12-14] MEDS ORDERED: NACL 0.9% 1000 ML 1,000 ML IV ONE ×3 (17:57→19:23)
--- NOTE | 2018-12-14 17:58 | Event Note ---
ED Screening Note Date of service: 12/14/18 Time: 17:57 ED Screening Note: 28 y/o female comes in for hyperglycemia. This initial assessment/diagnostic orders/clinical plan/treatment(s) is/are subject to change based on patients health status, clinical progression and re- assessment by fellow clinical providers in the ED. Further treatment and workup at subsequent clinical providers discretion. Patient/guardian urged not to elope from the ED as their condition may be serious if not clinically assessed and managed. Initial orders include:
[2018-12-14 18:23] LABS: Basophils % (Auto) 0.4 % (0.0-1.8); Eosinophils # (Auto) 0.1 K/mm3 (0.0-0.4); Eosinophils % (Auto) 1.3 % (0.0-4.3); Hematocrit 39.7 % (30.3-42.9); Hemoglobin 13.4 gm/dl (10.1-14.3); Lymphocytes # (Auto) 2.2 K/mm3 (1.2-5.4); Lymphocytes % (Auto) 24.9 % (13.4-35.0); Mean Corpuscular HGB Conc 34 % (30-34); Mean Corpuscular Volume 94 fl (79-97); Monocytes # (Auto) 0.4 K/mm3 (0.0-0.8); Monocytes % (Auto) 4.4 % (0.0-7.3); Platelet Count 319 K/mm3 (140-440); Red Blood Count 4.21 M/mm3 (3.65-5.03); Red Cell Distribution Width 12.7 % (13.2-15.2)
[2018-12-14 18:45] LABS: Alanine Aminotransferase 8 units/L (7-56); Albumin 3.8 g/dL (3.9-5); BUN/Creatinine Ratio 12; Blood Urea Nitrogen 7 mg/dL (7-17); Hemolysis Index 6
[2018-12-14] MEDS ORDERED: HumuLIN R IV ONE (18:49)
--- NOTE | 2018-12-14 19:37 | Emergency Department Report ---
ED General Adult HPI - General Chief complaint: Hyperglycemia Stated complaint: SUGAR LOW Time Seen by Provider: 12/14/18 18:22 Source: patient Mode of arrival: Ambulatory Limitations: No Limitations - History of Present Illness Initial comments: Mrs. Laird is a very pleasant 28-year-old female with history of insulin- dependent diabetes since 2012 who presents with elevated blood sugar. She was recently evaluated by my colleague earlier this week for generalized body aches. She states that her blood sugars are normally easy to control. She takes NovoLog 7030 10 units twice a day. She is follow at [facility]. She has been compliant with diabetic diet. She denies fever. She denies chest pain or shortness of breath. Denies abdominal pain. -: Gradual, days(s) (2) Quality: aching (generalized body aches) Consistency: constant Improves with: none Worsens with: none Associated Symptoms: malaise - Related Data Previous Rx's Medication Instructions Recorded Last Taken Type ALBUTEROL NEB's [Proventil 0.083% 2.5 mg IH Q4HRT PRN #15 nebu 08/27/18 Unknown Rx NEBS] Acetaminophen [Acetaminophen TAB] 650 mg PO Q4H PRN #15 tablet 08/27/18 Unknown Rx Insulin Glargine [Lantus VIAL] 30 units SUB-Q QHS #100 units 08/27/18 Unknown Rx Lispro Insulin [HumaLOG] 1 dose SUB-Q ACHS PRN #100 units 08/27/18 Unknown Rx levoFLOXacin [Levaquin TAB] 500 mg PO QDAY #5 tablet 08/27/18 Unknown Rx Insulin NPH/Regular [Novolin 70/30] 10 unit SUB-Q BID #1 vial 09/17/18 Unknown Rx Acetaminophen [Non-Aspirin Extra 500 mg PO Q6HR PRN #30 tablet 12/13/18 Unknown Rx Strength] Shaniqua Root [Shaniqua] 250 mg PO QID PRN #30 capsule 12/13/18 Unknown Rx Ibuprofen [Motrin] 400 mg PO Q8H PRN #30 tablet 12/13/18 Unknown Rx Insulin Aspart Prot/Aspart(Nf) 10 units SQ BID #1 vial 12/14/18 Unknown Rx [Novolog Mix 70/30] Allergies Allergy/AdvReac Type Severity Reaction Status Date / Time No Known Allergies Allergy Verified 06/30/18 20:24 ED Review of Systems ROS: Stated complaint: SUGAR LOW Other details as noted in HPI Comment: All other systems reviewed and negative Constitutional: malaise. denies: fever Cardiovascular: denies: chest pain Gastrointestinal: denies: abdominal pain, nausea, vomiting ED Past Medical Hx - Past Medical History Previous Medical History?: Yes Hx Hypertension: Yes (during ) Hx CVA: No Hx Heart Attack/AMI: No Hx Congestive Heart Failure: No Hx Diabetes: Yes (Type 1) Hx Deep Vein Thrombosis: No Hx Pulmonary Embolism: No Hx GERD: No Hx Liver Disease: No Hx Renal Disease: No Hx Sickle Cell Disease: No Hx Arthritis: No Hx Headaches / Migraines: No Hx Seizures: No Hx Kidney Stones: No Hx Psychiatric Treatment: No Hx Asthma: No Hx COPD: No Hx Dementia: No Hx HIV: No Additional medical history: boil under left axilla with I&d - Surgical History Past Surgical History?: Yes Hx Coronary Stent: No Hx Open Heart Surgery: No Hx Pacemaker: No Hx Internal Defibrillator: No Hx Cholecystectomy: No Hx Appendectomy: No Hx Breast Surgery: No Additional Surgical History: x 2 - Family History Family history: diabetes - Social History Smoking Status: Never Smoker - Medications Home Medications: Home Medications Medication Instructions Recorded Confirmed Last Taken Type ALBUTEROL NEB's [Proventil 0.083% 2.5 mg IH Q4HRT PRN #15 nebu 08/27/18 Unknown Rx NEBS] Acetaminophen [Acetaminophen TAB] 650 mg PO Q4H PRN #15 tablet 08/27/18 Unknown Rx Insulin Glargine [Lantus VIAL] 30 units SUB-Q QHS #100 units 08/27/18 Unknown Rx Lispro Insulin [HumaLOG] 1 dose SUB-Q ACHS PRN #100 units 08/27/18 Unknown Rx levoFLOXacin [Levaquin TAB] 500 mg PO QDAY #5 tablet 08/27/18 Unknown Rx Insulin NPH/Regular [Novolin 70/30] 10 unit SUB-Q BID #1 vial 09/17/18 Unknown Rx Acetaminophen [Non-Aspirin Extra 500 mg PO Q6HR PRN #30 tablet 12/13/18 Unknown Rx Strength] Shaniqua Root [Shaniqua] 250 mg PO QID PRN #30 capsule 12/13/18 Unknown Rx Ibuprofen [Motrin] 400 mg PO Q8H PRN #30 tablet 12/13/18 Unknown Rx Insulin Aspart Prot/Aspart(Nf) 10 units SQ BID #1 vial 12/14/18 Unknown Rx [Novolog Mix 70/30] ED Physical Exam - General Limitations: No Limitations General appearance: alert, in no apparent distress - Head Head exam: Present: atraumatic, normocephalic - Eye Eye exam: Present: normal appearance - ENT ENT exam: Present: mucous membranes moist - Neck Neck exam: Present: normal inspection, full ROM - Respiratory Respiratory exam: Present: normal lung sounds bilaterally. Absent: respiratory distress, wheezes, rales, rhonchi - Cardiovascular Cardiovascular Exam: Present: regular rate, normal rhythm, normal heart sounds. Absent: systolic murmur, diastolic murmur, rubs, gallop - GI/Abdominal GI/Abdominal exam: Present: soft, normal bowel sounds. Absent: distended, tenderness, guarding, rebound - Extremities Exam Extremities exam: Present: normal inspection - Back Exam Back exam: Present: normal inspection - Neurological Exam Neurological exam: Present: alert, oriented X3 - Psychiatric Psychiatric exam: Present: normal affect, normal mood - Skin Skin exam: Present: warm, dry, intact, normal color. Absent: rash ED Course Vital Signs 12/14/18 12/14/18 12/14/18 17:55 18:18 19:17 Temperature 98.9 F Pulse Rate 96 H 76 90 Respiratory 16 18 18 Rate Blood Pressure 124/81 Blood Pressure 114/81 120/81 [Right] O2 Sat by Pulse 98 98 Oximetry ED Medical Decision Making - Lab Data Result diagrams: 12/14/18 18:08 12/14/18 18:08 Laboratory Results - last 24 hr 12/14/18 12/14/18 12/14/18 18:01 18:08 18:08 WBC 8.7 RBC 4.21 Hgb 13.4 Hct 39.7 MCV 94 MCH 32 MCHC 34 RDW 12.7 L Plt Count 319 Lymph % (Auto) 24.9 [place] % (Auto) 4.4 Eos % (Auto) 1.3 Baso % (Auto) 0.4 Lymph # 2.2 [place] # 0.4 Eos # 0.1 Baso # 0.0 Seg Neutrophils % 69.0 Seg Neutrophils # 6.0 VBG pH Sodium 135 L Potassium 4.1 Chloride 101.8 Carbon Dioxide 22 Anion Gap 15 BUN 7 Creatinine 0.6 L Estimated GFR > 60 BUN/Creatinine Ratio 12 Glucose 466 H POC Glucose 451 H Calcium 9.0 Total Bilirubin 0.40 AST 11 ALT 8 Alkaline Phosphatase 80 Total Protein 6.9 Albumin 3.8 L Albumin/Globulin Ratio 1.2 12/14/18 12/14/18 18:08 19:26 WBC RBC Hgb Hct MCV MCH MCHC RDW Plt Count Lymph % (Auto) [place] % (Auto) Eos % (Auto) Baso % (Auto) Lymph # [place] # Eos # Baso # Seg Neutrophils % Seg Neutrophils # VBG pH 7.343 Sodium Potassium Chloride Carbon Dioxide Anion Gap BUN Creatinine Estimated GFR BUN/Creatinine Ratio Glucose POC Glucose 385 H Calcium Total Bilirubin AST ALT Alkaline Phosphatase Total Protein Albumin Albumin/Globulin Ratio - Medical Decision Making Mrs. Serrato presents with insulin-dependent diabetes complicated hyperglycemia and generalized body aches without evidence of diabetic ketoacidosis. Given IV fluid therapy in the ED. Also given IV insulin. Strongly recommended follow-up with her PCP [facility]. Discharged home in stable condition. Critical care attestation.: If time is entered above; I have spent that time in minutes in the direct care of this critically ill patient, excluding procedure time. ED Disposition Clinical Impression: Hyperglycemia, Diabetes mellitus Disposition: DC-01 TO HOME OR SELFCARE Is pt being admited?: No Does the pt Need Aspirin: No Condition: Stable Instructions: Diabetes Mellitus Type 2 in Adults (ED) Prescriptions: Insulin Aspart Prot/Aspart(Nf) [Novolog Mix 70/30] 10 units SQ BID #1 vial Referrals: YASMANY PINZON MD [Primary Care Provider] - 3-5 Days
[2018-12-14] MEDS ORDERED: ULTRAM PO ONE (21:26)
[2018-12-14 22:10] VITALS: BP 137/82
== END 2018-12-14 22:24 | disposition home or self-care (01) ==
LOC: ED 17:43
DX: E11.65 Type 2 diabetes mellitus with hyperglycemia (principal); I10 Essential (primary) hypertension; Z79.4 Long term (current) use of insulin; Z79.899 Other long term (current) drug therapy
CPT/HCPCS: 36415; 80053; 82805; 82962; 85025; 96361; 96374; 99283; J7030; J1815

== ENCOUNTER 2019-01-05 09:34 | Inpatient (IN) | payer MEDICAID ==
[2019-01-05] MEDS ORDERED: NACL 0.9% 1000 ML 1,000 ML IV ONE ×2 (10:14→11:16)
[2019-01-05] MEDS ORDERED: MAGNESIUM SULFATE 2GM/50ML 2 GM/50 ML BAG IV ONE ×2 (10:16→19:00)
[2019-01-05] MEDS ORDERED: XYLOCAINE TOPICAL 4% TP ONE (10:16)
[2019-01-05] MEDS ORDERED: REGLAN IV ONE (10:16)
--- NOTE | 2019-01-05 10:17 | Emergency Department Report ---
ED General Adult HPI - General Chief complaint: Syncope Stated complaint: HIGH BLOOD SUGAR Time Seen by Provider: 01/05/19 09:55 Source: patient, EMS (ems notes not available at time of chart dictation), RN notes reviewed, old records reviewed Mode of arrival: Stretcher Limitations: Physical Limitation - History of Present Illness Initial comments: This is a 28-year-old female. I have evaluated this patient in the past. She has a past medical history of diabetes, and diabetic ketoacidosis. The patient typically follows at the [facility]. Patient presents today with multiple complaints. She apparently was working today, and had an episode of syncope/loss of consciousness. This episode of syncope is not preceded by a sudden or thunderclap headache. She does endorse a headache that started last night. The headache is frontal. The headache does not radiate anywhere. The headache is constant. This headache is not sudden or thunderclap in nature. This headache is not the most intense headache of her life. Her most intense headache of her life was a few years ago. She also denies DVT, pulmonary embolus risk factors. She endorses bilateral calf pain. She denies neck pain, sore throat, chest pain, abdominal pain and shortness of breath. She denies irritative, obstructive urinary symptoms. Her headache is constant, throbbing, frontal, and does not radiate anywhere. She's had no additional episodes of loss of consciousness since this morning. -: Gradual, Sudden Location: head, left, right, lower extremity Quality: constant, other Consistency: constant Improves with: other (patient endorses of the headache does not have exacerbating or relieving factors. Patient endorses that her bilateral leg pain increases with palpation and decreases with rest.) - Related Data Previous Rx's Medication Instructions Recorded Last Taken Type ALBUTEROL NEB's [Proventil 0.083% 2.5 mg IH Q4HRT PRN #15 nebu 08/27/18 Unknown Rx NEBS] Acetaminophen [Acetaminophen TAB] 650 mg PO Q4H PRN #15 tablet 08/27/18 Unknown Rx Insulin Glargine [Lantus VIAL] 30 units SUB-Q QHS #100 units 08/27/18 Unknown Rx Lispro Insulin [HumaLOG] 1 dose SUB-Q ACHS PRN #100 units 08/27/18 Unknown Rx levoFLOXacin [Levaquin TAB] 500 mg PO QDAY #5 tablet 08/27/18 Unknown Rx Insulin NPH/Regular [Novolin 70/30] 10 unit SUB-Q BID #1 vial 09/17/18 Unknown R x Acetaminophen [Non-Aspirin Extra 500 mg PO Q6HR PRN #30 tablet 12/13/18 Unknown Rx Strength] Shaniqua Root [Shaniqua] 250 mg PO QID PRN #30 capsule 12/13/18 Unknown Rx Ibuprofen [Motrin] 400 mg PO Q8H PRN #30 tablet 12/13/18 Unknown Rx Insulin Aspart Prot/Aspart(Nf) 10 units SQ BID #1 vial 12/14/18 Unknown Rx [Novolog Mix 70/30] Allergies Allergy/AdvReac Type Severity Reaction Status Date / Time No Known Allergies Allergy Verified 01/05/19 09:44 ED Review of Systems ROS: Stated complaint: HIGH BLOOD SUGAR Other details as noted in HPI Constitutional: malaise Eyes: denies: eye discharge ENT: denies: epistaxis Respiratory: denies: cough Cardiovascular: syncope Genitourinary: denies: dysuria Musculoskeletal: arthralgia, myalgia Skin: denies: lesions Neurological: headache, weakness ED Past Medical Hx - Past Medical History Hx Hypertension: Yes (during ) Hx CVA: No Hx Heart Attack/AMI: No Hx Congestive Heart Failure: No Hx Diabetes: Yes (Type 1) Hx Deep Vein Thrombosis: No Hx Pulmonary Embolism: No Hx GERD: No Hx Liver Disease: No Hx Renal Disease: No Hx Sickle Cell Disease: No Hx Arthritis: No Hx Headaches / Migraines: No Hx Seizures: No Hx Kidney Stones: No Hx Psychiatric Treatment: No Hx Asthma: No Hx COPD: No Hx Dementia: No Hx HIV: No Additional medical history: boil under left axilla with I&d - Surgical History Hx Coronary Stent: No Hx Open Heart Surgery: No Hx Pacemaker: No Hx Internal Defibrillator: No Hx Cholecystectomy: No Hx Appendectomy: No Hx Breast Surgery: No Additional Surgical History: x 2 - Social History Smoking Status: Never Smoker - Medications Home Medications: Home Medications Medication Instructions Recorded Confirmed Last Taken Type ALBUTEROL NEB's [Proventil 0.083% 2.5 mg IH Q4HRT PRN #15 nebu 08/27/18 Unknown Rx NEBS] Acetaminophen [Acetaminophen TAB] 650 mg PO Q4H PRN #15 tablet 08/27/18 Unknown Rx Insulin Glargine [Lantus VIAL] 30 units SUB-Q QHS #100 units 08/27/18 Unknown Rx Lispro Insulin [HumaLOG] 1 dose SUB-Q ACHS PRN #100 units 08/27/18 Unknown Rx levoFLOXacin [Levaquin TAB] 500 mg PO QDAY #5 tablet 08/27/18 Unknown Rx Insulin NPH/Regular [Novolin 70/30] 10 unit SUB-Q BID #1 vial 09/17/18 Unknown Rx Acetaminophen [Non-Aspirin Extra 500 mg PO Q6HR PRN #30 tablet 12/13/18 Unknown Rx Strength] Shaniqua Root [Shaniqua] 250 mg PO QID PRN #30 capsule 12/13/18 Unknown Rx Ibuprofen [Motrin] 400 mg PO Q8H PRN #30 tablet 12/13/18 Unknown Rx Insulin Aspart Prot/Aspart(Nf) 10 units SQ BID #1 vial 12/14/18 Unknown Rx [Novolog Mix 70/30] ED Physical Exam - General Limitations: Other (the patient is speaking very softly, but when prompted, she will answer questions.) General appearance: alert, in no apparent distress - Head Head exam: Present: atraumatic, normocephalic - Eye Eye exam: Present: normal appearance, EOMI. Absent: nystagmus - ENT ENT exam: Present: mucous membranes dry, normal external ear exam - Neck Neck exam: Present: normal inspection, full ROM. Absent: tenderness, meningismus - Respiratory Respiratory exam: Present: normal lung sounds bilaterally. Absent: respiratory distress - Cardiovascular Cardiovascular Exam: Present: normal rhythm, tachycardia, normal heart sounds. Absent: systolic murmur, diastolic murmur, rubs, gallop - GI/Abdominal GI/Abdominal exam: Present: soft. Absent: distended, tenderness, guarding, rebound, rigid, pulsatile mass - Extremities Exam Extremities exam: Present: normal inspection, full ROM, calf tenderness, other (2+ pulses noted in the bilateral upper, lower extremities. Compartments soft. No long bony tenderness. The pelvis is stable.). Absent: pedal edema - Back Exam Back exam: Present: normal inspection, full ROM. Absent: tenderness, CVA tenderness (R), CVA tenderness (L), paraspinal tenderness, vertebral tenderness - Neurological Exam Neurological exam: Present: alert, other (Extraocular movements intact. Tongue midline. No facial droop. Facial sensation intact to light touch in the V1, V2, V3 distribution bilaterally. 5 and 5 strength in 4 extremities.. Sensation is intact to light touch in 4 extremities.). Absent: motor sensory deficit - Psychiatric Psychiatric exam: Present: anxious - Skin Skin exam: Present: warm, dry, intact, normal color. Absent: rash ED Course Vital Signs 01/05/19 01/05/19 09:57 12:27 Temperature 99.2 F 98.9 F Pulse Rate 113 H Respiratory 25 H Rate Blood Pressure 136/82 [Left] O2 Sat by Pulse 99 Oximetry - Reevaluation(s) Reevaluation #1: 01/05/19 11:12 Differential diagnosis, including not limited to: Orthostasis, vagal event, structural cardiac disease, DVT, pulmonary embolism, migraine headache, tension headache, cluster headache, intracranial lesion, pneumonia, urinary tract infection Assessment and plan: 28-year-old female with a complaint of weakness and syncopal event at work, and headache that started last night. Nursing documentation is reviewed and appreciated. The patient tells me that the headache is not sudden or thunderclap in nature, and not the most intense headache of her life. I evaluated this patient in the past. She is speaking softly, and appears to be generally weak. Has a low-grade temperature, tachycardia and tachypnea. There is no neck pain. There is no neck stiffness. We will obtain basic laboratory studies, d-dimer was negative, lower extremity DVT study, rectal temperature, orthostatics, CT scan of the brain, and we will reassess. If patient does indeed have a fever, and no source of fever may be identified, we will consider spinal tap. 01/05/19 11:13 Reevaluation #2: 01/05/19 11:17 DVT study negative. Labs demonstrate hypomagnesemia, anion gap acidosis, and hyperglycemia. Venous pH within normal limits. Suspect syncope related to dehydration, likely related to early diabetic ketoacidosis. We will admit the patient to the medical service once her initial diagnostics have resulted. Reevaluation #3: 01/05/19 12:25 Repeat oral temperature reportedly 98. The patient is refusing a rectal temperature. However, the patient exhibits decision-making capacity, and is free from distracting injury. The patient is moving her head back and forth, and her neck up and down, is smiling, and speaking with greater volume, and endorses that her headache feels much improved and therefore, her presentation is not consistent with meningitis or subarachnoid hemorrhage, and does not require emergent spinal tap. We are awaiting acquisition of orthostatics, although Adelina informs me verbally that they are "negative." I have requested the values to be input into the medical record system so I may review them personally. We will admit the patient to the medical service for dehydration, anion gap acidosis, and hyperglycemia. The Hospital physician is paged to arrange admission. Reevaluation #4: 01/05/19 12:52 Dr John Avalos to admit ED Medical Decision Making - Lab Data Result diagrams: 01/05/19 10:20 01/05/19 10:20 Vital Signs 01/05/19 09:57 Temperature 99.2 F Pulse Rate 113 H Respiratory 25 H Rate Blood Pressure 136/82 [Left] O2 Sat by Pulse 99 Oximetry Lab Results 01/05/19 01/05/19 01/05/19 Range/Units 10:20 10:20 10:20 WBC (4.5-11.0) K/mm3 RBC (3.65-5.03) M/mm3 Hgb (10.1-14.3) gm/dl Hct (30.3-42.9) % MCV (79-97) fl MCH (28-32) pg MCHC (30-34) % RDW (13.2-15.2) % Plt Count (140-440) K/mm3 Lymph % (Auto) (13.4-35.0) % [place] % (Auto) (0.0-7.3) % Eos % (Auto) (0.0-4.3) % Baso % (Auto) (0.0-1.8) % Lymph # (1.2-5.4) K/mm3 [place] # (0.0-0.8) K/mm3 Eos # (0.0-0.4) K/mm3 Baso # (0.0-0.1) K/mm3 Seg Neutrophils % (40.0-70.0) % Seg Neutrophils # (1.8-7.7) K/mm3 PT 14.2 (12.2-14.9) Sec. INR 1.13 (0.87-1.13) D-Dimer 196.97 (0-234) ng/mlDDU VBG pH (7.320-7.420) Sodium (137-145) mmol/L Potassium (3.6-5.0) mmol/L Chloride (98-107) mmol/L Carbon Dioxide (22-30) mmol/L Anion Gap mmol/L BUN (7-17) mg/dL Creatinine (0.7-1.2) mg/dL Estimated GFR ml/min BUN/Creatinine Ratio % Glucose (65-100) mg/dL Calcium (8.4-10.2) mg/dL Magnesium 1.60 L (1.7-2.3) mg/dL Total Bilirubin (0.1-1.2) mg/dL AST (5-40) units/L ALT (7-56) units/L Alkaline Phosphatase (35-129) units/L Total Creatine Kinase 28 L (30-135) units/L Troponin T < 0.010 (0.00-0.029) ng/mL Total Protein (6.3-8.2) g/dL Albumin (3.9-5) g/dL Albumin/Globulin Ratio % HCG, Quant < 2 (0-4) mIU/mL Salicylates (2.8-20.0) mg/dL Acetaminophen (10.0-30.0) ug/mL 01/05/19 01/05/19 01/05/19 Range/Units 10:20 10:20 10:20 WBC (4.5-11.0) K/mm3 RBC (3.65-5.03) M/mm3 Hgb (10.1-14.3) gm/dl Hct (30.3-42.9) % MCV (79-97) fl MCH (28-32) pg MCHC (30-34) % RDW (13.2-15.2) % Plt Count (140-440) K/mm3 Lymph % (Auto) (13.4-35.0) % [place] % (Auto) (0.0-7.3) % Eos % (Auto) (0.0-4.3) % Baso % (Auto) (0.0-1.8) % Lymph # (1.2-5.4) K/mm3 [place] # (0.0-0.8) K/mm3 Eos # (0.0-0.4) K/mm3 Baso # (0.0-0.1) K/mm3 Seg Neutrophils % (40.0-70.0) % Seg Neutrophils # (1.8-7.7) K/mm3 PT (12.2-14.9) Sec. INR (0.87-1.13) D-Dimer (0-234) ng/mlDDU VBG pH 7.350 (7.320-7.420) Sodium (137-145) mmol/L Potassium (3.6-5.0) mmol/L Chloride (98-107) mmol/L Carbon Dioxide (22-30) mmol/L Anion Gap mmol/L BUN (7-17) mg/dL Creatinine (0.7-1.2) mg/dL Estimated GFR ml/min BUN/Creatinine Ratio % Glucose (65-100) mg/dL Calcium (8.4-10.2) mg/dL Magnesium (1.7-2.3) mg/dL Total Bilirubin (0.1-1.2) mg/dL AST (5-40) units/L ALT (7-56) units/L Alkaline Phosphatase (35-129) units/L Total Creatine Kinase (30-135) units/L Troponin T (0.00-0.029) ng/mL Total Protein (6.3-8.2) g/dL Albumin (3.9-5) g/dL Albumin/Globulin Ratio % HCG, Quant (0-4) mIU/mL Salicylates < 0.3 L (2.8-20.0) mg/dL Acetaminophen < 5.0 L (10.0-30.0) ug/mL 01/05/19 01/05/19 Range/Units 10:20 10:20 WBC 9.8 (4.5-11.0) K/mm3 RBC 4.39 (3.65-5.03) M/mm3 Hgb 14.0 (10.1-14.3) gm/dl Hct 41.1 (30.3-42.9) % MCV 94 (79-97) fl MCH 32 (28-32) pg MCHC 34 (30-34) % RDW 13.0 L (13.2-15.2) % Plt Count 314 (140-440) K/mm3 Lymph % (Auto) 12.1 L (13.4-35.0) % [place] % (Auto) 3.4 (0.0-7.3) % Eos % (Auto) 0.1 (0.0-4.3) % Baso % (Auto) 0.2 (0.0-1.8) % Lymph # 1.2 (1.2-5.4) K/mm3 [place] # 0.3 (0.0-0.8) K/mm3 Eos # 0.0 (0.0-0.4) K/mm3 Baso # 0.0 (0.0-0.1) K/mm3 Seg Neutrophils % 84.2 H (40.0-70.0) % Seg Neutrophils # 8.2 H (1.8-7.7) K/mm3 PT (12.2-14.9) Sec. INR (0.87-1.13) D-Dimer (0-234) ng/mlDDU VBG pH (7.320-7.420) Sodium 132 L (137-145) mmol/L Potassium 4.0 (3.6-5.0) mmol/L Chloride 100.5 (98-107) mmol/L Carbon Dioxide 14 L (22-30) mmol/L Anion Gap 22 mmol/L BUN 10 (7-17) mg/dL Creatinine 0.4 L (0.7-1.2) mg/dL Estimated GFR > 60 ml/min BUN/Creatinine Ratio 25 % Glucose 439 H (65-100) mg/dL Calcium 8.6 (8.4-10.2) mg/dL Magnesium (1.7-2.3) mg/dL Total Bilirubin 1.10 (0.1-1.2) mg/dL AST 11 (5-40) units/L ALT 8 (7-56) units/L Alkaline Phosphatase 89 (35-129) units/L Total Creatine Kinase (30-135) units/L Troponin T (0.00-0.029) ng/mL Total Protein 6.7 (6.3-8.2) g/dL Albumin 3.6 L (3.9-5) g/dL Albumin/Globulin Ratio 1.2 % HCG, Quant (0-4) mIU/mL Salicylates (2.8-20.0) mg/dL Acetaminophen (10.0-30.0) ug/mL - EKG Data -: EKG Interpreted by Me EKG shows normal: sinus rhythm Rate: normal - EKG Data 01/05/19 11:15 This is a sinus tachycardia, 110 bpm, normal axis, QTC prolonged, borderline high left ventricular voltage, poor R-wave progression, atrial enlargement, this EKG is abnormal, the EKG is not consistent with ST elevation myocardial infarction, the EKG is unchanged from prior. - Radiology Data Radiology results: pending Critical care attestation.: If time is entered above; I have spent that time in minutes in the direct care of this critically ill patient, excluding procedure time. ED Disposition Clinical Impression: Metabolic acidosis, Hypomagnesemia Syncope Qualifiers: Syncope type: unspecified Qualified Code(s): R55 - Syncope and collapse Headache Qualifiers: Headache type: other headache syndrome Qualified Code(s): G44.89 - Other headache syndrome Disposition: -09 OP ADMIT IP TO THIS HOSP Is pt being admited?: Yes Condition: Good Instructions: Syncope (ED) Referrals: JOSE LUIS LOVE [Other] - 3-5 Days
[2019-01-05 10:37] LABS: Basophils % (Auto) 0.2 % (0.0-1.8); Eosinophils % (Auto) 0.1 % (0.0-4.3); Hematocrit 41.1 % (30.3-42.9); Lymphocytes # (Auto) 1.2 K/mm3 (1.2-5.4); Lymphocytes % (Auto) 12.1 % (13.4-35.0); Mean Corpuscular HGB Conc 34 % (30-34); Mean Corpuscular Volume 94 fl (79-97); Monocytes # (Auto) 0.3 K/mm3 (0.0-0.8); Monocytes % (Auto) 3.4 % (0.0-7.3); Platelet Count 314 K/mm3 (140-440); Red Blood Count 4.39 M/mm3 (3.65-5.03)
[2019-01-05 11:01] LABS: Alanine Aminotransferase 8 units/L (7-56); Albumin 3.6 g/dL (3.9-5); BUN/Creatinine Ratio 25; Blood Urea Nitrogen 10 mg/dL (7-17); Calcium 8.6 mg/dL (8.4-10.2); Hemolysis Index 15
[2019-01-05 11:03] LABS: INR 1.13 (0.87-1.13)
--- NOTE | 2019-01-05 11:07 | Vascular Lab Report ---
DUPLEX DOPPLER BILATERAL LOWER EXTREMITY VEINS INDICATION: b/l lower ext calf pain and syncope FINDINGS: There is no thrombus within the deep veins of either lower extremity from the common femoral to the c shona veins. There is normal compression and augmentation on spectral analysis. IMPRESSION: No sonographic evidence for DVT in either lower extremity. Signer Name: Jabier Holland MD Signed: 01/05/2019 11:03 AM Workstation Name: [id number]
[2019-01-05] MEDS ORDERED: HumuLIN R IV ONE ×2 (11:16→12:49)
--- NOTE | 2019-01-05 11:42 | XRay Report ---
CHEST 1 VIEW 11:22 AM INDICATION / CLINICAL INFORMATION: Syncope and weakness for one day. COMPARISON: 12/13/2018. FINDINGS: SUPPORT DEVICES: None. HEART / MEDIASTINUM: The heart size and pulmonary vasculature are normal. The aorta is normal in carolyn malena. LUNGS / PLEURA: No significant pulmonary or pleural abnormality. No pneumothorax. ADDITIONAL FINDINGS: No significant additional findings. IMPRESSION: No acute abnormality or significant change. Signer Name: Jay Nicholson MD Signed: 01/05/2019 11:38 AM Workstation Name: [id number]
--- NOTE | 2019-01-05 12:03 | Cat Scan Report ---
CT head/brain wo con INDICATION / CLINICAL INFORMATION: 28 years Female; headache since last night, syncope. TECHNIQUE: Routine CT head without contrast. All CT scans at this location are performed using CT dos e reduction for ALARA by means of automated exposure control. COMPARISON: None. FINDINGS: BRAIN / INTRACRANIAL CONTENTS: No acute hemorrhage, mass effect, midline shift, hydrocephalus, or acu te, large territorial infarct. No chronic infarct or focal atrophy. Normal brain volume and ventricul ar/sulcal size for age. No significant white matter abnormality. CRANIOCERVICAL JUNCTION: No significant abnormality. ORBITS: No significant abnormality of visualized orbits. SINUSES / MASTOIDS: No significant abnormality of the visualized paranasal sinuses or mastoid air jama ls. ADDITIONAL FINDINGS: None. IMPRESSION: 1. No focal mass, hemorrhage, hydrocephalus, or acute, large territorial infarct. Signer Name: Tone Willis MD, III Signed: 01/05/2019 11:58 AM Workstation Name: [id number]
[2019-01-05 14:40] LABS: BUN/Creatinine Ratio 20; Blood Urea Nitrogen 10 mg/dL (7-17); Calcium 8.3 mg/dL (8.4-10.2); Hemolysis Index 398
[2019-01-05] MEDS ORDERED: PERCOCET 5/325 PO PRN (16:04)
[2019-01-05] MEDS ORDERED: ZOFRAN IV PRN (16:04)
[2019-01-05] MEDS ORDERED: SODIUM CHLORIDE FLUSH SYRINGE 10 ML IV PRN (16:04)
[2019-01-05] MEDS ORDERED: DILAUDID IV PRN (16:04)
[2019-01-05] MEDS ORDERED: TYLENOL PO PRN (16:04)
[2019-01-05] MEDS ORDERED: D50W (25GM) Syringe IV PRN (17:26)
--- NOTE | 2019-01-05 17:59 | History and Physical Report ---
History of Present Illness Date of examination: 01/05/19 Date of admission: 01/05/19 16:04 Chief complaint: Nausea vomiting and high blood glucose level since yesterday. MIs in the medications was the first History of present illness: 28-year-old -[place] female with history of internal diabetes apparently did not take her insulin yesterday and today because she was nauseous and vomiting 3-4 times. Also not eating. Patient normally takes insulin 7030 10-20 units twice a day. Used to be on Lantus and Humalog as a basal bolus regimen. No fever or chills. Nausea vomiting 4 today. No diarrhea. No fever or chills. Generalized weakness. No muscle spasms. Some epigastric discomfort present. No chest pain. She was apparently working today and had an episode of syncope. Also headache since last night. Past Medical History Hypertension: Yes (during ) IDDM Left axilla boil with I&D in the past Surgical History 2 Social History Smoking Status: Never Smoker Family history HTN Home Medications: Home Medications Medication Instructions Recorded Confirmed Last Taken Type ALBUTEROL NEB's [Proventil 0.083% 2.5 mg IH Q4HRT PRN #15 nebu 08/27/18 Unknown Rx NEBS] Acetaminophen [Acetaminophen TAB] 650 mg PO Q4H PRN #15 tablet 08/27/18 Unknown Rx Insulin Glargine [Lantus VIAL] 30 units SUB-Q QHS #100 units 08/27/18 Unknown Rx Lispro Insulin [HumaLOG] 1 dose SUB-Q ACHS PRN #100 units 08/27/18 Unknown Rx levoFLOXacin [Levaquin TAB] 500 mg PO QDAY #5 tablet 08/27/18 Unknown Rx Insulin NPH/Regular [Novolin 70/30] 10 unit SUB-Q BID #1 vial 09/17/18 Unknown Rx Acetaminophen [Non-Aspirin Extra 500 mg PO Q6HR PRN #30 tablet 12/13/18 Unknown Rx Strength] Shaniqua Root [Shaniqua] 250 mg PO QID PRN #30 capsule 12/13/18 Unknown Rx Ibuprofen [Motrin] 400 mg PO Q8H PRN #30 tablet 12/13/18 Unknown Rx Insulin Aspart Prot/Aspart(Nf) 10 units SQ BID #1 vial 12/14/18 Unknown Rx [Novolog Mix 70/30] Review of systems ROS: Stated complaint: HIGH BLOOD SUGAR Other details as noted in HPI Constitutional: malaise Eyes: denies: eye discharge ENT: denies: epistaxis Respiratory: denies: cough Cardiovascular: syncope Gastrointestinal--nausea vomiting present. Epigastric discomfort present. Genitourinary: denies: dysuria Musculoskeletal: arthralgia, myalgia Skin: denies: lesions Neurological: headache, weakness Medications and Allergies Allergies Allergy/AdvReac Type Severity Reaction Status Date / Time No Known Allergies Allergy Verified 01/05/19 09:44 Home Medications Medication Instructions Recorded Confirmed Last Taken Type Insulin NPH/Regular [Novolin 70/30] 15 unit SUB-Q QAM&QHS 01/05/19 01/05/19 01/03/19 History Active Meds: Active Medications Acetaminophen (Tylenol) 650 mg PO Q4H PRN PRN Reason: Pain MILD(1-3)/Fever >100.5/WANG Dextrose (D50w (25gm) Syringe) 0 ml IV PRN PRN PRN Reason: Hypoglycemia Hydromorphone HCl (Dilaudid) 0.5 mg IV Q3H PRN PRN Reason: Pain , Severe (7-10) Insulin Human Regular 100 (units/ Sodium Chloride) 100 mls @ 1 mls/hr IV TITR RUDI; Protocol Potassium Chloride (Kcl 10meq/100ml) 10 meq in 100 mls @ 100 mls/hr IV Q1H RUDI Stop: 01/05/19 21:59 Potassium Chloride (Kcl 10meq/100ml) 10 meq in 100 mls @ 100 mls/hr IV Q1H RUDI Stop: 01/05/19 23:59 Potassium Chloride/Dextrose/Sod Cl (D5w/0.45% Nacl/Kcl 20 Meq) 20 meq in 1,000 mls @ 125 mls/hr IV DIRECT RUDI Ondansetron HCl (Zofran) 4 mg IV Q8H PRN PRN Reason: Nausea And Vomiting Oxycodone/Acetaminophen (Percocet 5/325) 1 tab PO Q6H PRN PRN Reason: Pain, Moderate (4-6) Sodium Chloride (Sodium Chloride Flush Syringe 10 Ml) 10 ml IV BID RUDI Sodium Chloride (Sodium Chloride Flush Syringe 10 Ml) 10 ml IV PRN PRN PRN Reason: LINE FLUSH Exam - Constitutional Vitals: Temp Pulse Resp BP Pulse Ox 98.9 F 95 H 19 102/61 100 01/05/19 12:27 01/05/19 16:10 01/05/19 16:10 01/05/19 16:10 01/05/19 16:10 General appearance: Present: no acute distress, well-nourished - EENT Eyes: Present: PERRL ENT: hearing intact, clear oral mucosa - Neck Neck: Present: supple, normal ROM - Respiratory Respiratory effort: normal Respiratory: bilateral: CTA - Cardiovascular Rhythm: regular (88) Heart Sounds: Present: S1 & S2. Absent: rub, click - Extremities Extremities: no ischemia, pulses intact, pulses symmetrical, No edema Peripheral Pulses: within normal limits - Abdominal General gastrointestinal: Present: soft, non-tender, non-distended, normal bowel sounds Female genitourinary: Present: normal - Rectal Rectal Exam: deferred - Integumentary Integumentary: Present: clear, warm, dry - Musculoskeletal Musculoskeletal: gait normal, strength equal bilaterally - Psychiatric Psychiatric: appropriate mood/affect, intact judgment & insight - Neurologic Neurologic: CNII-XII intact, moves all extremities - Allied Health Allied health notes reviewed: nursing, case management Results - Labs CBC & Chem 7: 01/05/19 10:20 01/05/19 15:14 Labs: Laboratory Last Values WBC 9.8 K/mm3 (4.5-11.0) 01/05/19 10:20 RBC 4.39 M/mm3 (3.65-5.03) 01/05/19 10:20 Hgb 14.0 gm/dl (10.1-14.3) 01/05/19 10:20 Hct 41.1 % (30.3-42.9) 01/05/19 10:20 MCV 94 fl (79-97) 01/05/19 10:20 MCH 32 pg (28-32) 01/05/19 10:20 MCHC 34 % (30-34) 01/05/19 10:20 RDW 13.0 % (13.2-15.2) L 01/05/19 10:20 Plt Count 314 K/mm3 (140-440) 01/05/19 10:20 Lymph % (Auto) 12.1 % (13.4-35.0) L 01/05/19 10:20 [place] % (Auto) 3.4 % (0.0-7.3) 01/05/19 10:20 Eos % (Auto) 0.1 % (0.0-4.3) 01/05/19 10:20 Baso % (Auto) 0.2 % (0.0-1.8) 01/05/19 10:20 Lymph # 1.2 K/mm3 (1.2-5.4) 01/05/19 10:20 [place] # 0.3 K/mm3 (0.0-0.8) 01/05/19 10:20 Eos # 0.0 K/mm3 (0.0-0.4) 01/05/19 10:20 Baso # 0.0 K/mm3 (0.0-0.1) 01/05/19 10:20 Seg Neutrophils % 84.2 % (40.0-70.0) H 01/05/19 10:20 Seg Neutrophils # 8.2 K/mm3 (1.8-7.7) H 01/05/19 10:20 PT 14.2 Sec. (12.2-14.9) 01/05/19 10:20 INR 1.13 (0.87-1.13) 01/05/19 10:20 196.97 ng/mlDDU (0-234) 01/05/19 10:20 VBG pH 7.350 (7.320-7.420) 01/05/19 10:20 Sodium 135 mmol/L (137-145) L 01/05/19 13:40 Potassium 4.1 mmol/L (3.6-5.0) 01/05/19 15:14 Chloride 105.6 mmol/L (98-107) 01/05/19 13:40 Carbon Dioxide 15 mmol/L (22-30) L 01/05/19 13:40 21 mmol/L 01/05/19 13:40 BUN 10 mg/dL (7-17) 01/05/19 13:40 0.5 mg/dL (0.7-1.2) L 01/05/19 13:40 Estimated GFR > 60 ml/min 01/05/19 13:40 20 % 01/05/19 13:40 Glucose 290 mg/dL (65-100) H 01/05/19 13:40 POC Glucose 195 (70-105) H 01/05/19 16:05 14.3 % (4-6) H 01/05/19 10:20 Lactic Acid 1.50 mmol/L (0.7-2.0) 01/05/19 11:50 Calcium 8.3 mg/dL (8.4-10.2) L 01/05/19 13:40 Magnesium 1.60 mg/dL (1.7-2.3) L 01/05/19 10:20 1.10 mg/dL (0.1-1.2) 01/05/19 10:20 AST 11 units/L (5-40) 01/05/19 10:20 ALT 8 units/L (7-56) 01/05/19 10:20 89 units/L (35-129) 01/05/19 10:20 28 units/L (30-135) L 01/05/19 10:20 < 0.010 ng/mL (0.00-0.029) 01/05/19 10:20 6.7 g/dL (6.3-8.2) 01/05/19 10:20 3.6 g/dL (3.9-5) L 01/05/19 10:20 1.2 % 01/05/19 10:20 TSH 0.610 mlU/mL (0.270-4.200) 01/05/19 10:20 HCG, Quant < 2 mIU/mL (0-4) 01/05/19 10:20 Salicylates < 0.3 mg/dL (2.8-20.0) L 01/05/19 10:20 Acetaminophen < 5.0 ug/mL (10.0-30.0) L 01/05/19 10:20 Short CBC 01/05/19 Range/Units 10:20 WBC 9.8 (4.5-11.0) K/mm3 Hgb 14.0 (10.1-14.3) gm/dl Hct 41.1 (30.3-42.9) % Plt Count 314 (140-440) K/mm3 BMP 01/05/19 01/05/19 01/05/19 10:20 13:40 15:14 Sodium 132 L 135 L Potassium 4.0 TNR 4.1 Chloride 100.5 105.6 Carbon Dioxide 14 L 15 L BUN 10 10 Creatinine 0.4 L 0.5 L Glucose 439 H 290 H Calcium 8.6 8.3 L Cardiac Enzymes 01/05/19 Range/Units 10:20 Total Creatine Kinase 28 L (30-135) units/L Troponin T < 0.010 (0.00-0.029) ng/mL Liver Function 01/05/19 Range/Units 10:20 Total Bilirubin 1.10 (0.1-1.2) mg/dL AST 11 (5-40) units/L ALT 8 (7-56) units/L Alkaline Phosphatase 89 (35-129) units/L Albumin 3.6 L (3.9-5) g/dL - Imaging and Cardiology Imaging and Cardiology: Lower extremity venous duplex scan IMPRESSION: No sonographic evidence for DVT in either lower extremity. Head CT IMPRESSION: 1. No focal mass, hemorrhage, hydrocephalus, or acute, large territorial infarct. Chest x-ray IMPRESSION: No acute abnormality or significant change. Assessment and Plan Assessment and plan: Critical care statement The high probability of a clinically significant, sudden or life-threatening deterioration of the pulmonary, cardiac, renal systems required my full and direct attention, intervention and personal management. The aggregate critical care time was 35 minutes. This time is in addition to the time spent performing reported procedures but includes the following Data review and interpretation Patient assessment and monitoring of vital signs Documentation Medication orders and management Advance Directives: Yes (full code) VTE prophylaxis?: Chemical Plan of care discussed with patient/family: Yes - Patient Problems (1) DKA (diabetic ketoacidoses) Current Visit: Yes Status: Acute Qualifiers: Diabetes mellitus type: type 1 Diabetes mellitus complication detail: with out coma Qualified Code(s): E10.10 - Type 1 diabetes mellitus with ketoac idosis without coma Plan to address problem: DKA protocol initiated IV insulin initiated IV fluids in the form of normal saline and D5W initiated Hemoglobin A1c is very high 14.3. Patient needs to be on a higher insulin dose at the time of discharge (2) Hyponatremia Current Visit: Yes Status: Acute Plan to address problem: Secondary to high glucose levels Should correct with correction of glucose levels (3) Hypomagnesemia Current Visit: Yes Status: Acute Plan to address problem: IV magnesium supplemented Recheck magnesium level (4) Hypocalcemia Current Visit: Yes Status: Acute Plan to address problem: Patient started on Caltrate 1 tablet twice a day (5) DVT prophylaxis Current Visit: Yes Status: Acute Plan to address problem: On Lovenox and GI prophylaxis
[2019-01-05] MEDS ORDERED: HumuLIN R 100 UNITS in NACL 0.9% 99 ML IV SCH (18:00)
[2019-01-05] MEDS: KCL 10MEQ/100ML 10 MEQ/100 ML BAG IV SCH ×2 (20:08→20:09)
--- NOTE | 2019-01-05 20:36 | Event Note ---
Date: 01/05/19 Sugars are better controlled Patient downgraded to MedSurg with telemetry at21 hours
[2019-01-05 22:20] LABS: BUN/Creatinine Ratio 18; Blood Urea Nitrogen 7 mg/dL (7-17); Calcium 8.4 mg/dL (8.4-10.2); Hemolysis Index 3
[2019-01-05] MEDS: SODIUM CHLORIDE FLUSH SYRINGE 10 ML IV SCH (22:26)
[2019-01-05] MEDS: HumaLOG SUB-Q SCH (22:26)
[2019-01-05] MEDS: CALTRATE PLUS PO SCH (22:49)
[2019-01-06] MEDS: D5W/0.45% NACL/KCL 20 MEQ 20 MEQ/1,000 ML BAG IV SCH ×2 (00:44→06:53)
[2019-01-06 01:21] LABS: BUN/Creatinine Ratio 18; Blood Urea Nitrogen 7 mg/dL (7-17); Calcium 8.1 mg/dL (8.4-10.2); Hemolysis Index 13
[2019-01-06] MEDS: KCL 10MEQ/100ML 10 MEQ/100 ML BAG IV SCH ×3 (02:50→03:02)
[2019-01-06 02:56] LABS: Bilirubin,Urine NEG (Negative); Blood,Urine NEG (Negative); Color,Urine Yellow (Yellow); Mucus,Urine FEW /HPF; Protein,Urine <15 mg/dL mg/dL (Negative)
[2019-01-06] MEDS: HumaLOG SUB-Q SCH ×6 (02:59→23:10)
[2019-01-06 03:00] LABS: Amphetamine Screen,Urine PRESUMPTIVE NEGATIVE; Benzodiazepines Screen,Urine PRESUMPTIVE NEGATIVE; Cannabinoid Screen,Urine PRESUMPTIVE NEGATIVE; Cocaine Screen,Urine PRESUMPTIVE NEGATIVE; Methadone Screen,Urine PRESUMPTIVE NEGATIVE; Opiate Screen,Urine PRESUMPTIVE NEGATIVE
[2019-01-06] MEDS: LOVENOX SUB-Q SCH (09:50)
[2019-01-06] MEDS: CALTRATE PLUS PO SCH ×2 (09:50→21:13)
[2019-01-06] MEDS: SODIUM CHLORIDE FLUSH SYRINGE 10 ML IV SCH ×2 (09:51→21:13)
[2019-01-06 10:50] LABS: BUN/Creatinine Ratio 13; Blood Urea Nitrogen 5 mg/dL (7-17); Calcium 8.3 mg/dL (8.4-10.2); Hemolysis Index 8
--- NOTE | 2019-01-06 17:14 | Progress Note ---
Assessment and Plan Assessment and plan: 28-year-old -[place] female with history of internal diabetes apparently did not take her insulin yesterday and today because she was nauseous and vomiting 3-4 times. Also not eating. Patient normally takes insulin 7030 10-20 units twice a day. Used to be on Lantus and Humalog as a basal bolus regimen. No fever or chills. Nausea vomiting 4 today. No diarrhea. No fever or chills. Generalized weakness. No muscle spasms. Some epigastric discomfort present. No chest pain. She was apparently working today and had an episode of syncope. Also headache since last night. per patient and report, she had Syncope followed by Headache Ct head negative. Neurology consult - Patient Problems (1) DKA (diabetic ketoacidoses) Current Visit: Yes Status: Acute Qualifiers: Diabetes mellitus type: type 1 Diabetes mellitus complication detail: without coma Qualified Code(s): E10.10 - Type 1 diabetes mellitus with ketoacidosis without coma Plan to address problem: DKA protocol initiated and corrected IV insulin initiated IV fluids in the form of normal saline and D5W initiated Hemoglobin A1c is very high 14.3. Patient needs to be on a higher insulin dose at the time of discharge Counselling provided (2) Syncope Neurology consult CT Head is negative for acute pathology (3) Uncontrolled DM Continue current insulin dose (4)Hyponatremia Current Visit: Yes Status: Acute Plan to address problem: Corrected Secondary to high glucose levels Should correct with correction of glucose levels (5) Hypomagnesemia Current Visit: Yes Status: Acute Plan to address problem: Corrected (6) Hypocalcemia Current Visit: Yes Status: Acute Plan to address problem: Patient started on Caltrate 1 tablet twice a day (7) Gastroenteritis Zofran. (8)DVT prophylaxis Current Visit: Yes Status: Acute Plan to address problem: On Lovenox and GI prophylaxis History Interval history: Patient seen and examined, reports some improvement, no further nausea noted. Hospitalist Physical - Constitutional Vitals: Temp Pulse Resp BP Pulse Ox 98.3 F 90 17 114/71 100 01/06/19 06:09 01/06/19 06:09 01/06/19 06:09 01/06/19 06:09 01/06/19 06:09 General appearance: Present: no acute distress, well-nourished - EENT Eyes: Present: PERRL, EOM intact ENT: hearing intact, clear oral mucosa - Neck Neck: Present: supple, normal ROM - Respiratory Respiratory effort: normal Respiratory: bilateral: CTA - Cardiovascular Rhythm: regular Heart Sounds: Present: S1 & S2 - Extremities Extremities: no ischemia, pulses intact, pulses symmetrical, No edema, normal temperature, normal color, Full ROM Peripheral Pulses: within normal limits - Abdominal General gastrointestinal: soft, non-tender, non-distended, normal bowel sounds - Integumentary Integumentary: Present: clear, warm, dry - Psychiatric Psychiatric: appropriate mood/affect, intact judgment & insight, cooperative - Neurologic Neurologic: CNII-XII intact, moves all extremities - Allied Health Allied health notes reviewed: nursing Results - Labs CBC & Chem 7: 01/05/19 10:20 01/06/19 18:33 Labs: Laboratory Last Values WBC 9.8 K/mm3 (4.5-11.0) 01/05/19 10:20 RBC 4.39 M/mm3 (3.65-5.03) 01/05/19 10:20 Hgb 14.0 gm/dl (10.1-14.3) 01/05/19 10:20 Hct 41.1 % (30.3-42.9) 01/05/19 10:20 MCV 94 fl (79-97) 01/05/19 10:20 MCH 32 pg (28-32) 01/05/19 10:20 MCHC 34 % (30-34) 01/05/19 10:20 RDW 13.0 % (13.2-15.2) L 01/05/19 10:20 Plt Count 314 K/mm3 (140-440) 01/05/19 10:20 Lymph % (Auto) 12.1 % (13.4-35.0) L 01/05/19 10:20 [place] % (Auto) 3.4 % (0.0-7.3) 01/05/19 10:20 Eos % (Auto) 0.1 % (0.0-4.3) 01/05/19 10:20 Baso % (Auto) 0.2 % (0.0-1.8) 01/05/19 10:20 Lymph # 1.2 K/mm3 (1.2-5.4) 01/05/19 10:20 [place] # 0.3 K/mm3 (0.0-0.8) 01/05/19 10:20 Eos # 0.0 K/mm3 (0.0-0.4) 01/05/19 10:20 Baso # 0.0 K/mm3 (0.0-0.1) 01/05/19 10:20 Seg Neutrophils % 84.2 % (40.0-70.0) H 01/05/19 10:20 Seg Neutrophils # 8.2 K/mm3 (1.8-7.7) H 01/05/19 10:20 PT 14.2 Sec. (12.2-14.9) 01/05/19 10:20 INR 1.13 (0.87-1.13) 01/05/19 10:20 196.97 ng/mlDDU (0-234) 01/05/19 10:20 VBG pH 7.350 (7.320-7.420) 01/05/19 10:20 Sodium 137 mmol/L (137-145) 01/06/19 09:39 Potassium 4.1 mmol/L (3.6-5.0) 01/06/19 09:39 Chloride 107.6 mmol/L (98-107) H 01/06/19 09:39 Carbon Dioxide 21 mmol/L (22-30) L 01/06/19 09:39 13 mmol/L 01/06/19 09:39 BUN 5 mg/dL (7-17) L 01/06/19 09:39 0.4 mg/dL (0.7-1.2) L 01/06/19 09:39 Estimated GFR > 60 ml/min 01/06/19 09:39 13 % 01/06/19 09:39 Glucose 210 mg/dL (65-100) H 01/06/19 09:39 POC Glucose 217 (70-105) H 01/06/19 11:31 14.3 % (4-6) H 01/05/19 10:20 Lactic Acid 1.50 mmol/L (0.7-2.0) 01/05/19 11:50 Calcium 8.3 mg/dL (8.4-10.2) L 01/06/19 09:39 Phosphorus 1.50 mg/dL (2.5-4.5) L 01/05/19 21:49 Magnesium 2.10 mg/dL (1.7-2.3) 01/05/19 21:49 1.10 mg/dL (0.1-1.2) 01/05/19 10:20 AST 11 units/L (5-40) 01/05/19 10:20 ALT 8 units/L (7-56) 01/05/19 10:20 89 units/L (35-129) 01/05/19 10:20 28 units/L (30-135) L 01/05/19 10:20 < 0.010 ng/mL (0.00-0.029) 01/05/19 10:20 6.7 g/dL (6.3-8.2) 01/05/19 10:20 3.6 g/dL (3.9-5) L 01/05/19 10:20 1.2 % 01/05/19 10:20 TSH 0.610 mlU/mL (0.270-4.200) 01/05/19 10:20 HCG, Quant < 2 mIU/mL (0-4) 01/05/19 10:20 Yellow (Yellow) 01/06/19 01:59 Slightly-cloudy (Clear) 01/06/19 01:59 5.0 (5.0-7.0) 01/06/19 01:59 Ur Specific [place] 1.029 (1.003-1.030) 01/06/19 01:59 <15 mg/dl mg/dL (Negative) 01/06/19 01:59 >=500 mg/dL (Negative) 01/06/19 01:59 20 mg/dL (Negative) 01/06/19 01:59 Neg (Negative) 01/06/19 01:59 Neg (Negative) 01/06/19 01:59 Neg (Negative) 01/06/19 01:59 2.0 mg/dL (<2.0) 01/06/19 01:59 Ur Leukocyte Esterase Sm (Negative) 01/06/19 01:59 12.0 /HPF (0.0-6.0) H 01/06/19 01:59 2.0 /HPF (0.0-6.0) 01/06/19 01:59 U Epithel Cells (Auto) 13.0 /HPF (0-13.0) 01/06/19 01:59 Few /HPF 01/06/19 01:59 Salicylates < 0.3 mg/dL (2.8-20.0) L 01/05/19 10:20 Presumptive negative 01/05/19 01:59 Presumptive negative 01/05/19 01:59 Acetaminophen < 5.0 ug/mL (10.0-30.0) L 01/05/19 10:20 Ur Barbiturates Screen Presumptive negative 01/05/19 01:59 Ur Phencyclidine Scrn Presumptive negative 01/05/19 01:59 Ur Amphetamines Screen Presumptive negative 01/05/19 01:59 U Benzodiazepines Scrn Presumptive negative 01/05/19 01:59 Presumptive negative 01/05/19 01:59 U Marijuana (THC) Screen Presumptive negative 01/05/19 01:59 Disclamer 01/05/19 01:59 Active Medications - Current Medications Current Medications: Generic Name Dose Route Start Last Admin Trade Name Freq PRN Reason Stop Dose Admin Acetaminophen 650 mg 01/05/19 16:04 Tylenol PO Q4H PRN Pain MILD(1-3)/Fever >100.5/WANG Dextrose 0 ml 01/05/19 17:26 D50w (25gm) Syringe IV PRN PRN Hypoglycemia Enoxaparin Sodium 40 mg 01/06/19 10:00 01/06/19 09:50 Lovenox SUB-Q 40 mg QDAY RUDI Administration Hydromorphone HCl 0.5 mg 01/05/19 16:04 Dilaudid IV Q3H PRN Pain , Severe (7-10) Potassium Chloride/Dextrose/Sod Cl 20 meq in 1,000 mls @ 125 mls/hr 01/05/19 18:00 01/06/19 06:53 D5w/0.45% Nacl/Kcl 20 Meq IV 125 mls/hr DIRECT RUDI Administration Insulin Human Lispro 0 unit 01/06/19 11:30 01/06/19 12:48 Humalog SUB-Q 4 unit ACHS RUDI Administration Protocol Multivitamins/Minerals 1 each 01/05/19 22:00 01/06/19 09:50 Caltrate Plus PO 1 each BID RUDI Administration Ondansetron HCl 4 mg 01/05/19 16:04 Zofran IV Q8H PRN Nausea And Vomiting Oxycodone/Acetaminophen 1 tab 01/05/19 16:04 Percocet 5/325 PO Q6H PRN Pain, Moderate (4-6) Sodium Chloride 10 ml 01/05/19 22:00 01/06/19 09:51 Sodium Chloride Flush Syringe 10 Ml IV 10 ml BID RUDI Administration Sodium Chloride 10 ml 01/05/19 16:04 Sodium Chloride Flush Syringe 10 Ml IV PRN PRN LINE FLUSH Nutrition/Malnutrition Assess - Dietary Evaluation Nutrition/Malnutrition Findings: Nutrition Notes Start: 01/06/19 10:54 Freq: Status: Active Protocol: Document 01/06/19 10:54 RM (Rec: 01/06/19 11:09 RM [id number]) Nutrition Notes Need for Assessment generated from: MD Order Initial or Follow up Assessment Current Diagnosis Diabetes Other Pertinent Diagnosis N/V Current Diet Consistent CHO Labs/Tests A1c 14.3 Pertinent Medications Reviewed Height 5 ft 4 in Weight 63.5 kg [place] Body Weight (kg) 54.54 BMI 24.0 Subjective/Other Information Consulted for nutrition recommendations and diet education. Pt stated that her appetite is okay and that she ate 25% of her breakfast. Denied N/V since admission. Pt stated that she is already familiar w/DM diet education and just needs to apply it but accepted handout. Percent of energy/protein needs met: 30%/44% Burn Absent Trauma Absent #1 Nutrition Diagnosis Inadequate oral intake Etiology decreased appetite As Evidenced by Signs and Symptoms pt statement that she ate 25% of her breakfast Is patient on ventilator? No Is Patient Ambulatory and/or Out of Bed Yes REE-([facility]-ambulatory/OOB) [ 1768.000 [id number]] Calculation Used for Recommendations [facility] Additional Notes Protein Needs: 51-64g (0.8-1g/ kg) Fluid Needs: 1 ml/kcal Nutrition Intervention Change Diet Order: Continue current Add Supplement/Snack (indicate name/kcal Glucerna Chocolate 1 daily /protein ) Provides kCal: 240 Provides Protein (gm) 10 Education Handouts Provided Carbohydrate counting for people with diabetes Goal #1 Meet at least 75% of calorie and protein needs via PO and ONS intakes Anticipated Discharge Needs: Consistent CHO diet Follow-Up By: 01/08/19 Additional Comments Follow for PO and ONS intakes
[2019-01-06 20:53] LABS: BUN/Creatinine Ratio 18; Blood Urea Nitrogen 7 mg/dL (7-17); Calcium 8.6 mg/dL (8.4-10.2); Hemolysis Index 9
[2019-01-07] MEDS: HumaLOG SUB-Q SCH ×2 (09:23→13:05)
[2019-01-07] MEDS: CALTRATE PLUS PO SCH (09:24)
[2019-01-07] MEDS: LOVENOX SUB-Q SCH ×2 (09:24→09:30)
--- NOTE | 2019-01-07 11:06 | Discharge Summary ---
Providers - Providers Date of Admission: 01/05/19 16:04 Attending physician: NIXON ÁLVAREZ MD Primary care physician: JOSE LUIS LOVE Hospitalization Condition: Good Hospital course: 28-year-old -[place] female with history of internal diabetes apparently did not take her insulin yesterday and today because she was nauseous and vomiting 3-4 times. Also not eating. Patient normally takes insulin 7030 10-20 units twice a day. Used to be on Lantus and Humalog as a basal bolus regimen. No fever or chills. Nausea vomiting 4 today. No diarrhea. No fever or chills. Generalized weakness. No muscle spasms. Some epigastric discomfort present. No chest pain. She was apparently working today and had an episode of syncope. Also headache since last night. per patient and report, she had Syncope followed by Headache Ct head negative. Neurology consult - Patient Problems (1) DKA (diabetic ketoacidoses) Current Visit: Yes Status: Acute Qualifiers: Diabetes mellitus type: type 1 Diabetes mellitus complication detail: without coma Qualified Code(s): E10.10 - Type 1 diabetes mellitus with ketoacidosis without coma Plan to address problem: DKA protocol initiated and corrected IV insulin initiated IV fluids in the form of normal saline and D5W initiated Hemoglobin A1c is very high 14.3. Patient needs to be on a higher insulin dose at the time of discharge Counselling provided (2) Syncope LIKELY SECONDARY TO DM CT Head is negative for acute pathology (3) Uncontrolled DM Continue current insulin dose (4)Hyponatremia Current Visit: Yes Status: Acute Plan to address problem: Corrected Secondary to high glucose levels Should correct with correction of glucose levels (5) Hypomagnesemia Current Visit: Yes Status: Acute Plan to address problem: Corrected (6) Hypocalcemia Current Visit: Yes Status: Acute Plan to address problem: Patient started on Caltrate 1 tablet twice a day (7) Gastroenteritis Zofran. (8)DVT prophylaxis Current Visit: Yes Status: Acute Plan to address problem: On Lovenox and GI prophylaxis Disposition: DC-01 TO HOME OR SELFCARE Time spent for discharge: 35 MINS Exam - Constitutional Vitals: Temp Pulse Resp BP Pulse Ox 98.5 F 97 H 20 124/81 99 01/07/19 07:10 01/07/19 07:04 01/07/19 07:04 01/07/19 07:04 01/07/19 07:04 Plan Activity: advance as tolerated, fall precautions Diet: diabetic Special Instructions: record daily BP diary, record blood sugar diary Additional Instructions: HAVE REPEAT BASIC METABOLIC PROIFL LAB TEST DONE IN 3-5 DAYS WITH PCP Follow up with: JOSE LUIS LOVE [Other] - 3-5 Days Prescriptions: Calcium Carb/Vit D3/Minerals [Caltrate Plus] 1 each PO BID #30 tablet Insulin NPH/Regular [NovoLIN 70/30] 20 unit SUB-Q QAM&QHS 30 Days units
[2019-01-07] MEDS ORDERED: SODIUM BICARBONATE PO SCH (12:00)
[2019-01-07] MEDS: SODIUM CHLORIDE FLUSH SYRINGE 10 ML IV SCH (13:11)
[2019-01-07 13:54] VITALS: BP 121/82
== END 2019-01-07 13:41 | disposition home or self-care (01) | DRG 638 ==
LOC: ED 09:34 → CC1 16:04 → 3A 20:56
PROVIDERS: ADMIT Internal Medicine; ATTEND Internal Medicine
DX: E10.10 Type 1 diabetes mellitus with ketoacidosis without coma (principal); E87.1 Hypo-osmolality and hyponatremia; G44.89 Other headache syndrome; E83.42 Hypomagnesemia; E83.51 Hypocalcemia; K52.9 Noninfective gastroenteritis and colitis, unspecified; I10 Essential (primary) hypertension; Z82.49 Family history of ischemic heart disease and other diseases of the circulatory system; Z79.899 Other long term (current) drug therapy; Z79.4 Long term (current) use of insulin
CPT/HCPCS: 36415; 70450; 71045; 80048; 80053; 80307; 80320; 81001; 82140; 82550; 82805; 82962; 83036; 83735; 84100; 84132; 84443; 84484; 84702; 85025; 85379; 85610; 87086; 93005; 93010; 93970; 96365; 96375; G0378; G0480; J1650; J1815; J2765; J3475; J7030

== ENCOUNTER 2019-03-24 23:57 | Emergency (ER) | payer MEDICAID ==
[2019-03-25 00:22] VITALS: BP 127/90
--- NOTE | 2019-03-25 00:38 | XRay Report ---
CHEST 1 VIEW INDICATION / CLINICAL INFORMATION: Chest Pain. COMPARISON: None available. FINDINGS: SUPPORT DEVICES: None. HEART / MEDIASTINUM: No significant abnormality. LUNGS / PLEURA: No significant pulmonary or pleural abnormality. No pneumothorax. ADDITIONAL FINDINGS: No significant additional findings. IMPRESSION: 1. No acute findings. Signer Name: Miky Barrow MD Signed: 03/25/2019 12:33 AM Workstation Name: [id number]
== END 2019-03-25 02:40 | disposition left against medical advice (07) ==
LOC: ED 23:57
DX: M79.601 Pain in right arm (principal); Z53.21 Procedure and treatment not carried out due to patient leaving prior to being seen by health care provider
CPT/HCPCS: 71045; 93005; 93010

== ENCOUNTER 2019-08-08 11:57 | Emergency (ER) | payer MEDICAID ==
--- NOTE | 2019-08-08 13:17 | Event Note ---
ED Screening Note ED Screening Note: states that yesterday her sister told her that her face was swollen states that she had tingling on the right cheek states today she has very mild headache in the right roman catholic no dental pain no vision changes no weakness no numbness PMHx DM, states she had elevated bp with , no issues currently no allergies to meds states she takes insulin This initial assessment/diagnostic orders/clinical plan/treatment(s) is/are subject to change based on patients health status, clinical progression and re- assessment by fellow clinical providers in the ED. Further treatment and workup at subsequent clinical providers discretion. Patient/guardian urged not to elope from the ED as their condition may be serious if not clinically assessed and managed. Initial orders include: labs, UA, urine
[2019-08-08] MEDS ORDERED: SODIUM CHLORIDE 0.9% 1000 ML 1,000 ML IV ONE (13:46)
[2019-08-08] MEDS ORDERED: INSULIN REGULAR, HUMAN 100 UNITS/1 ML IV ONE (13:48)
[2019-08-08] MEDS ORDERED: KETOROLAC 30 MG/1 ML INJ IV ONE (13:48)
[2019-08-08 14:14] LABS: Basophils % (Auto) 0.5 % (0.0-1.8); Eosinophils # (Auto) 0.1 K/mm3 (0.0-0.4); Eosinophils % (Auto) 1.1 % (0.0-4.3); Hematocrit 43.5 % (30.3-42.9); Hemoglobin 14.9 gm/dl (10.1-14.3); Lymphocytes # (Auto) 2.4 K/mm3 (1.2-5.4); Lymphocytes % (Auto) 24.5 % (13.4-35.0); Mean Corpuscular HGB Conc 34 % (30-34); Mean Corpuscular Volume 94 fl (79-97); Monocytes # (Auto) 0.4 K/mm3 (0.0-0.8); Monocytes % (Auto) 3.9 % (0.0-7.3); Platelet Count 358 K/mm3 (140-440); Red Blood Count 4.65 M/mm3 (3.65-5.03); Red Cell Distribution Width 12.1 % (13.2-15.2)
[2019-08-08 14:26] LABS: Bilirubin,Urine NEG (Negative); Blood,Urine NEG (Negative); Color,Urine Yellow (Yellow); Mucus,Urine FEW /HPF; Protein,Urine <15 mg/dL mg/dL (Negative); Urobilinogen,Urine < 2.0 mg/dL (<2.0)
[2019-08-08 14:28] LABS: HCG Qualitative,Urine Negative (Negative)
[2019-08-08 14:36] LABS: Alanine Aminotransferase 8 units/L (7-56); Albumin 4.2 g/dL (3.9-5); BUN/Creatinine Ratio 23; Blood Urea Nitrogen 9 mg/dL (7-17); Calcium 9.7 mg/dL (8.4-10.2); Hemolysis Index 24
--- NOTE | 2019-08-08 15:30 | Emergency Department Report ---
ED General Adult HPI - General Chief complaint: Neuro Symptoms/Deficit Stated complaint: RT SIDE OF FACE FEELS TINGLING Time Seen by Provider: 08/08/19 13:14 Source: patient Mode of arrival: Ambulatory Limitations: No Limitations - History of Present Illness Initial comments: This is a 28-year-old female with a history of diabetes currently on insulin 15 units/day who presents to ED complaining of feeling some tingling sensation on her right cheek this morning. Patient states that she regularly takes insulin daily. Patient states she is to be on metformin but was switched to insulin. Patient states she has been unable to manage her glucose since starting to take insulin. Patient also admits slight throbbing headache that began this morning. Patient denies abdominal pain, nausea or vomiting, chest pain, shortness of breath, blurred vision or any other disturbances. Laboratory Last Values WBC 9.9 K/mm3 (4.5-11.0) 08/08/19 13:47 RBC 4.65 M/mm3 (3.65-5.03) 08/08/19 13:47 Hgb 14.9 gm/dl (10.1-14.3) H 08/08/19 13:47 Hct 43.5 % (30.3-42.9) H 08/08/19 13:47 MCV 94 fl (79-97) 08/08/19 13:47 MCH 32 pg (28-32) 08/08/19 13:47 MCHC 34 % (30-34) 08/08/19 13:47 RDW 12.1 % (13.2-15.2) L 08/08/19 13:47 Plt Count 358 K/mm3 (140-440) 08/08/19 13:47 Lymph % (Auto) 24.5 % (13.4-35.0) 08/08/19 13:47 Titus % (Auto) 3.9 % (0.0-7.3) 08/08/19 13:47 Eos % (Auto) 1.1 % (0.0-4.3) 08/08/19 13:47 Baso % (Auto) 0.5 % (0.0-1.8) 08/08/19 13:47 Lymph # 2.4 K/mm3 (1.2-5.4) 08/08/19 13:47 Titus # 0.4 K/mm3 (0.0-0.8) 08/08/19 13:47 Eos # 0.1 K/mm3 (0.0-0.4) 08/08/19 13:47 Baso # 0.0 K/mm3 (0.0-0.1) 08/08/19 13:47 Seg Neutrophils % 70.0 % (40.0-70.0) 08/08/19 13:47 Seg Neutrophils # 6.9 K/mm3 (1.8-7.7) 08/08/19 13:47 Sodium 138 mmol/L (137-145) 08/08/19 13:47 Potassium 4.2 mmol/L (3.6-5.0) 08/08/19 13:47 Chloride 100.1 mmol/L (98-107) 08/08/19 13:47 Carbon Dioxide 20 mmol/L (22-30) L 08/08/19 13:47 Anion Gap 22 mmol/L 08/08/19 13:47 BUN 9 mg/dL (7-17) 08/08/19 13:47 Creatinine 0.4 mg/dL (0.7-1.2) L 08/08/19 13:47 Estimated GFR > 60 ml/min 08/08/19 13:47 BUN/Creatinine Ratio 23 % 08/08/19 13:47 Glucose 338 mg/dL (65-100) H 08/08/19 13:47 POC Glucose 326 (70-105) H 08/08/19 12:16 Calcium 9.7 mg/dL (8.4-10.2) 08/08/19 13:47 Total Bilirubin 1.00 mg/dL (0.1-1.2) 08/08/19 13:47 AST 14 units/L (5-40) 08/08/19 13:47 ALT 8 units/L (7-56) 08/08/19 13:47 Alkaline Phosphatase 97 units/L (35-129) 08/08/19 13:47 Total Protein 7.4 g/dL (6.3-8.2) 08/08/19 13:47 Albumin 4.2 g/dL (3.9-5) 08/08/19 13:47 Albumin/Globulin Ratio 1.3 % 08/08/19 13:47 Urine Color Yellow (Yellow) 08/08/19 14:06 Urine Turbidity Clear (Clear) 08/08/19 14:06 Urine pH 6.0 (5.0-7.0) 08/08/19 14:06 Ur Specific [place] 1.035 (1.003-1.030) H 08/08/19 14:06 Urine Protein <15 mg/dl mg/dL (Negative) 08/08/19 14:06 Urine Glucose (UA) >=500 mg/dL (Negative) 08/08/19 14:06 Urine Ketones 80 mg/dL (Negative) 08/08/19 14:06 Urine Blood Neg (Negative) 08/08/19 14:06 Urine Nitrite Neg (Negative) 08/08/19 14:06 Urine Bilirubin Neg (Negative) 08/08/19 14:06 Urine Urobilinogen < 2.0 mg/dL (<2.0) 08/08/19 14:06 Ur Leukocyte Esterase Neg (Negative) 08/08/19 14:06 Urine WBC (Auto) 1.0 /HPF (0.0-6.0) 08/08/19 14:06 Urine RBC (Auto) 1.0 /HPF (0.0-6.0) 08/08/19 14:06 U Epithel Cells (Auto) 1.0 /HPF (0-13.0) 08/08/19 14:06 Urine Mucus Few /HPF 08/08/19 14:06 Urine HCG, Qual Negative (Negative) 08/08/19 14:06 Location: face Radiation: non-radiation Severity scale (0 -10): 3 Quality: other (Tingling) - Related Data Previous Rx's Medication Instructions Recorded Last Taken Type Calcium Carb/Vit D3/Minerals 1 each PO BID #30 tablet 01/07/19 Unknown Rx [Caltrate Plus] Insulin NPH/Regular [NovoLIN 70/30] 20 unit SUB-Q QAM&QHS 30 Days 01/07/19 Unknown Rx units bisacodyL [Dulcolax suppos] 10 mg OR ONCE PRN #5 supp.rect 03/07/19 Unknown Rx Ibuprofen [Motrin 800 MG tab] 800 mg PO Q8HR PRN #30 tablet 08/08/19 Unknown Rx metFORMIN [Glucophage] 500 mg PO BID #30 tablet 08/08/19 Unknown Rx Allergies Allergy/AdvReac Type Severity Reaction Status Date / Time No Known Allergies Allergy Verified 03/07/19 15:30 ED Review of Systems ROS: Stated complaint: RT SIDE OF FACE FEELS TINGLING Other details as noted in HPI Comment: All other systems reviewed and negative ED Past Medical Hx - Past Medical History Hx Hypertension: Yes (during ) Hx CVA: No Hx Heart Attack/AMI: No Hx Congestive Heart Failure: No Hx Diabetes: Yes Hx Deep Vein Thrombosis: No Hx Pulmonary Embolism: No Hx GERD: No Hx Liver Disease: No Hx Renal Disease: No Hx Sickle Cell Disease: No Hx Arthritis: No Hx Headaches / Migraines: No Hx Seizures: No Hx Kidney Stones: No Hx Psychiatric Treatment: No Hx Asthma: No Hx COPD: No Hx Dementia: No Hx HIV: No Additional medical history: boil under left axilla with I&d - Surgical History Hx Coronary Stent: No Hx Open Heart Surgery: No Hx Pacemaker: No Hx Internal Defibrillator: No Hx Cholecystectomy: No Hx Appendectomy: No Hx Breast Surgery: No Additional Surgical History: x 2 - Social History Smoking Status: Never Smoker Substance Use Type: None - Medications Home Medications: Home Medications Medication Instructions Recorded Confirmed Last Taken Type Calcium Carb/Vit D3/Minerals 1 each PO BID #30 tablet 01/07/19 Unknown Rx [Caltrate Plus] Insulin NPH/Regular [NovoLIN 70/30] 20 unit SUB-Q QAM&QHS 30 Days 01/07/19 Unknown Rx units bisacodyL [Dulcolax suppos] 10 mg OR ONCE PRN #5 supp.rect 03/07/19 Unknown Rx Ibuprofen [Motrin 800 MG tab] 800 mg PO Q8HR PRN #30 tablet 08/08/19 Unknown Rx metFORMIN [Glucophage] 500 mg PO BID #30 tablet 08/08/19 Unknown Rx ED Physical Exam - General Limitations: No Limitations General appearance: alert, in no apparent distress - Head Head exam: Present: atraumatic, normocephalic - Eye Eye exam: Present: normal appearance, PERRL Pupils: Present: normal accommodation - ENT ENT exam: Present: mucous membranes moist - Neck Neck exam: Present: normal inspection, full ROM - Respiratory Respiratory exam: Present: normal lung sounds bilaterally. Absent: respiratory distress, wheezes - Cardiovascular Cardiovascular Exam: Present: regular rate, normal rhythm. Absent: systolic murmur, diastolic murmur, rubs, gallop - GI/Abdominal GI/Abdominal exam: Present: soft, normal bowel sounds - Extremities Exam Extremities exam: Present: normal inspection, full ROM - Back Exam Back exam: Present: normal inspection, full ROM - Neurological Exam Neurological exam: Present: alert, oriented X3, CN II-XII intact, normal gait, other (No neuro deficit) - Psychiatric Psychiatric exam: Present: normal affect, normal mood - Skin Skin exam: Present: warm, dry, intact, normal color. Absent: rash ED Course Vital Signs 08/08/19 08/08/19 08/08/19 12:02 13:15 16:56 Temperature 98.0 F Pulse Rate 128 H 112 H 102 H Respiratory 18 16 18 Rate Blood Pressure 135/95 Blood Pressure 132/98 [Right] O2 Sat by Pulse 100 100 100 Oximetry ED Medical Decision Making - Lab Data Result diagrams: 08/08/19 13:47 08/08/19 13:47 Laboratory Last Values WBC 9.9 K/mm3 (4.5-11.0) 08/08/19 13:47 RBC 4.65 M/mm3 (3.65-5.03) 08/08/19 13:47 Hgb 14.9 gm/dl (10.1-14.3) H 08/08/19 13:47 Hct 43.5 % (30.3-42.9) H 08/08/19 13:47 MCV 94 fl (79-97) 08/08/19 13:47 MCH 32 pg (28-32) 08/08/19 13:47 MCHC 34 % (30-34) 08/08/19 13:47 RDW 12.1 % (13.2-15.2) L 08/08/19 13:47 Plt Count 358 K/mm3 (140-440) 08/08/19 13:47 Lymph % (Auto) 24.5 % (13.4-35.0) 08/08/19 13:47 Titus % (Auto) 3.9 % (0.0-7.3) 08/08/19 13:47 Eos % (Auto) 1.1 % (0.0-4.3) 08/08/19 13:47 Baso % (Auto) 0.5 % (0.0-1.8) 08/08/19 13:47 Lymph # 2.4 K/mm3 (1.2-5.4) 08/08/19 13:47 Titus # 0.4 K/mm3 (0.0-0.8) 08/08/19 13:47 Eos # 0.1 K/mm3 (0.0-0.4) 08/08/19 13:47 Baso # 0.0 K/mm3 (0.0-0.1) 08/08/19 13:47 Seg Neutrophils % 70.0 % (40.0-70.0) 08/08/19 13:47 Seg Neutrophils # 6.9 K/mm3 (1.8-7.7) 08/08/19 13:47 Sodium 138 mmol/L (137-145) 08/08/19 13:47 Potassium 4.2 mmol/L (3.6-5.0) 08/08/19 13:47 Chloride 100.1 mmol/L (98-107) 08/08/19 13:47 Carbon Dioxide 20 mmol/L (22-30) L 08/08/19 13:47 Anion Gap 22 mmol/L 08/08/19 13:47 BUN 9 mg/dL (7-17) 08/08/19 13:47 Creatinine 0.4 mg/dL (0.7-1.2) L 08/08/19 13:47 Estimated GFR > 60 ml/min 08/08/19 13:47 BUN/Creatinine Ratio 23 % 08/08/19 13:47 Glucose 338 mg/dL (65-100) H 08/08/19 13:47 POC Glucose 326 (70-105) H 08/08/19 12:16 Calcium 9.7 mg/dL (8.4-10.2) 08/08/19 13:47 Total Bilirubin 1.00 mg/dL (0.1-1.2) 08/08/19 13:47 AST 14 units/L (5-40) 08/08/19 13:47 ALT 8 units/L (7-56) 08/08/19 13:47 Alkaline Phosphatase 97 units/L (35-129) 08/08/19 13:47 Total Protein 7.4 g/dL (6.3-8.2) 08/08/19 13:47 Albumin 4.2 g/dL (3.9-5) 08/08/19 13:47 Albumin/Globulin Ratio 1.3 % 08/08/19 13:47 Urine Color Yellow (Yellow) 08/08/19 14:06 Urine Turbidity Clear (Clear) 08/08/19 14:06 Urine pH 6.0 (5.0-7.0) 08/08/19 14:06 Ur Specific [place] 1.035 (1.003-1.030) H 08/08/19 14:06 Urine Protein <15 mg/dl mg/dL (Negative) 08/08/19 14:06 Urine Glucose (UA) >=500 mg/dL (Negative) 08/08/19 14:06 Urine Ketones 80 mg/dL (Negative) 08/08/19 14:06 Urine Blood Neg (Negative) 08/08/19 14:06 Urine Nitrite Neg (Negative) 08/08/19 14:06 Urine Bilirubin Neg (Negative) 08/08/19 14:06 Urine Urobilinogen < 2.0 mg/dL (<2.0) 08/08/19 14:06 Ur Leukocyte Esterase Neg (Negative) 08/08/19 14:06 Urine WBC (Auto) 1.0 /HPF (0.0-6.0) 08/08/19 14:06 Urine RBC (Auto) 1.0 /HPF (0.0-6.0) 08/08/19 14:06 U Epithel Cells (Auto) 1.0 /HPF (0-13.0) 08/08/19 14:06 Urine Mucus Few /HPF 08/08/19 14:06 Urine HCG, Qual Negative (Negative) 08/08/19 14:06 - Medical Decision Making 28-year-old female presents with hyperglycemia. Patient received 2 L of fluids in the ED. Patient received 5 units of insulin. Glucose reduced prior to discharge. Discussed with patient to follow-up with her primary care physician. Patient is in no acute distress. Vital signs are normal. Patient had no neurological deficit. Critical care attestation.: If time is entered above; I have spent that time in minutes in the direct care of this critically ill patient, excluding procedure time. ED Disposition Clinical Impression: Diabetes mellitus Disposition: DC-01 TO HOME OR SELFCARE Is pt being admited?: No Does the pt Need Aspirin: No Condition: Stable Instructions: Diabetes Mellitus Type 2 in Adults (ED), Diabetic Neuropathy (ED) Additional Instructions: Make sure to follow up with the primary care physician as discussed. Take all your medications as you've been prescribed. If you have any worsening symptoms or develop new symptoms please return to ED immediately. Prescriptions: metFORMIN [Glucophage] 500 mg PO BID #30 tablet Ibuprofen [Motrin 800 MG tab] 800 mg PO Q8HR PRN #30 tablet PRN Reason: Pain , Severe (7-10) Referrals: YASMANY PINZON MD [Primary Care Provider] - 3-5 Days [facility] [Outside] - 3-5 Days [facility] [Outside] - 3-5 Days Forms: Accompanied Note, Work/School Release Form(ED) Time of Disposition: 15:29
[2019-08-08 16:57] VITALS: BP 132/98
== END 2019-08-08 16:56 | disposition home or self-care (01) ==
LOC: ED 11:57
DX: E11.65 Type 2 diabetes mellitus with hyperglycemia (principal); I10 Essential (primary) hypertension; Z98.890 Other specified postprocedural states; Z79.4 Long term (current) use of insulin; Z79.1 Long term (current) use of non-steroidal anti-inflammatories (NSAID); Z79.899 Other long term (current) drug therapy
CPT/HCPCS: 36415; 80053; 81001; 81025; 82962; 85025; 96361; 96374; 96375; 99283; J1885; J7030; J1815

== ENCOUNTER 2021-07-22 23:31 | Emergency (ER) | payer MEDICAID ==
[2021-07-23] MEDS ORDERED: predniSONE 50 MG TAB PO ONE (01:18)
[2021-07-23] MEDS ORDERED: IBUPROFEN 600 MG TAB PO ONE (01:18)
[2021-07-23] MEDS ORDERED: ONDANSETRON 4 MG ODT TAB PO ONE (01:18)
[2021-07-23] MEDS ORDERED: HYDROcodone/ACETAMINOPHEN 5-325 MG TAB PO ONE (01:18)
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
[2021-07-23 02:11] VITALS: BP 116/78
== END 2021-07-23 02:11 | disposition home or self-care (01) ==
LOC: ED 23:31
DX: M75.51 Bursitis of right shoulder (principal); M25.511 Pain in right shoulder; G89.29 Other chronic pain; M77.8 Other enthesopathies, not elsewhere classified; E11.9 Type 2 diabetes mellitus without complications; Z79.899 Other long term (current) drug therapy; Z98.890 Other specified postprocedural states
CPT/HCPCS: 99282; J7512; J3490; Q0162

== ENCOUNTER 2021-09-28 20:50 | Emergency (ER) | payer MEDICAID ==
[2021-09-28 21:47] VITALS: BP 165/113
[2021-09-29] MEDS ORDERED: cephALEXin 500 MG CAP PO ONE (04:12)
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
[2021-09-29] MEDS ORDERED: traMADol 50 MG TAB PO ONE (04:19)
== END 2021-09-29 04:31 | disposition home or self-care (01) ==
LOC: ED 20:50
DX: L03.311 Cellulitis of abdominal wall (principal); I10 Essential (primary) hypertension; E11.9 Type 2 diabetes mellitus without complications; Z98.890 Other specified postprocedural states
CPT/HCPCS: 99282

== ENCOUNTER 2022-03-11 00:03 | Emergency (ER) | payer MEDICAID ==
[2022-03-11] MEDS ORDERED: fentaNYL 100 MCG/2 ML INJ IV ONE (06:16)
[2022-03-11] MEDS ORDERED: ONDANSETRON 4 MG/2 ML INJ IV ONE (06:16)
[2022-03-11] MEDS ORDERED: SILVER NITRATE APPLICATOR 1 EA TP ONE (06:18)
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
[2022-03-11 07:37] LABS: Basophils % (Auto) 0.5 % (0.0-1.8); Eosinophils # (Auto) 0.2 K/mm3 (0.0-0.4); Eosinophils % (Auto) 2.2 % (0.0-4.3); Hematocrit 35.9 % (30.3-42.9); Hemoglobin 12.1 gm/dl (10.1-14.3); Lymphocytes # (Auto) 2.7 K/mm3 (1.2-5.4); Mean Corpuscular HGB Conc 34 % (30-34); Mean Corpuscular Volume 93 fl (79-97); Monocytes # (Auto) 0.3 K/mm3 (0.0-0.8); Monocytes % (Auto) 4.4 % (0.0-7.3); Platelet Count 233 K/mm3 (140-440); Red Blood Count 3.85 M/mm3 (3.65-5.03)
[2022-03-11 07:46] LABS: INR 0.83 (0.87-1.13); Partial Thromboplastin Time 26.7 Sec. (24.2-36.6)
[2022-03-11 07:54] LABS: Blood Urea Nitrogen 8 mg/dL (7-17); Hemolysis Index 1
[2022-03-11 07:57] LABS: BUN/Creatinine Ratio 20
[2022-03-11 09:50] LABS: Bilirubin,Urine NEG (Negative); Blood,Urine NEG (Negative); Color,Urine Straw (Yellow); Protein,Urine <15 mg/dL mg/dL (Negative); Urobilinogen,Urine < 2 mg/dL (<2.0)
[2022-03-11 09:51] LABS: RBC,Urine < 1.0 /HPF (0.0-6.0)
--- NOTE | 2022-03-11 10:15 | Cat Scan Report ---
CT ABDOMEN AND PELVIS WITH CONTRAST HISTORY: Bleeding from site. C/S 5 years ago. COMPARISON: CT abdomen/pelvis from 03/07/2019 and also 11/21/2015 TECHNIQUE: CT images of the abdomen and pelvis were obtained following administration of intravenous contrast. All CT scans at this location are performed using CT dose reduction for ALARA by means of automated exposure control. CONTRAST: 100 ml of intravenous contrast administered. FINDINGS: Lungs/bones: Lung bases are clear. No acute osseous abnormality identified. Abdomen/pelvis: There is a subcutaneous nodular masslike structure in the left lower quadrant measur ing approximately 3 cm in maximal dimension on image 133 of series 2 with superficial ulceration. Adj acent [place]oddy lymph nodes are present. This finding has demonstrated slow interval growth over the pas t 3 years. The liver, gallbladder, spleen, pancreas, adrenals, right kidney, and proximal GI tract all appear un remarkable. There are small simple cysts in the left kidney. Urinary bladder is unremarkable. Uterus contains an IUD which is well-positioned. No pelvic free flui d. No acute colonic abnormality identified. The appendix is normal. IMPRESSION: 1. Left lower quadrant subcutaneous nodular density as outlined above has shown slow interval growth and is seen along the left lateral margin of the scar. Differential considerations include a mass, granulation tissue, and hematoma/abscess. Shotty adjacent lymph nodes present as well. Consid er follow-up limited ultrasound in this region to assess for any internal vascularity or internal flu id component to help differentiate the possibility of a mass versus hematoma/abscess. Signer Name: Ulisses Morris MD Signed: 03/11/2022 10:11 AM Workstation Name: [id number]
[2022-03-11 10:25] VITALS: BP 150/110
== END 2022-03-11 12:09 | disposition home or self-care (01) ==
LOC: ED 00:03
DX: T81.30XA Disruption of wound, unspecified, initial encounter (principal); I10 Essential (primary) hypertension; E11.9 Type 2 diabetes mellitus without complications; R79.1 Abnormal coagulation profile; Z72.89 Other problems related to lifestyle; Z79.899 Other long term (current) drug therapy; Y83.8 Other surgical procedures as the cause of abnormal reaction of the patient, or of later complication, without mention of misadventure at the time of the procedure; Y92.89 Other specified places as the place of occurrence of the external cause
CPT/HCPCS: 36415; 74177; 80048; 81001; 84703; 85025; 85610; 85730; 96374; 96375; 99284; J2405; J3010; Q9967